=== PATIENT | male | born 1940 | race Caucasian/White ===

== ENCOUNTER 2024-04-09 10:09 | Emergency (ER) | payer MEDICARE, SELFPAY ==
[2024-04-09] VITALS (24 sets, daily range): BP systolic 68–174; BP diastolic 37–83; PULSE 61–72; RESP 15–32; TEMP 35.7; O2SAT 93–100
--- NOTE | ~2024-04-09 | XR_ITS ---
EXAMINATION: XR chest 2V DATE: 04/09/2024 10:46 INDICATION: Weakness. Dizziness. TECHNIQUE: Frontal and lateral views of the chest were obtained on 3 radiographs. COMPARISON: Chest single view 07/13/2014 FINDINGS: The lung volumes are small. There is a diffuse interstitial pattern in the lungs with a per ipheral and lower lung predominance. No pleural effusion or pneumothorax. The heart size is normal. C alcified mediastinal lymph nodes are consistent with old granulomatous disease. Median sternotomy wir es are noted. IMPRESSION: 1. Small lung volumes with diffuse lung disease, new from 07/13/14, which may be chronic interstitial lung disease. Pneumonia is not excluded. Reviewed, dictated and finalized at location A.
--- NOTE | 2024-04-09 10:18 | ECG_ITS ---
SEE SCANNED COPY FOR CONFIRMED REPORT MTDD
[2024-04-09 10:44] LABS: Basophils Absolute Auto 0.1 K/mm3 (0.0-0.1); Basophils Percent Auto 0.8 % (0.2-1.2); Eosinophils Absolute Auto 0.3 K/mm3 (0-0.3); Eosinophils Percent Auto 3.4 % (0-4.4); Hematocrit 38.4 % (42.0-52.0); Hemoglobin 12.9 g/dL (14.0-18.0); Immature Granulocyte Absolute 0.08 K/mm3 (0.00-0.031); Immature Granulocyte Percent A 0.8 % (0-0.5); Lymphocytes Absolute Auto 1.66 K/mm3 (0.9-3.2); Lymphocytes Percent Auto 16.7 % (18.3-44.2); Mean Corpuscular HGB Conc 33.6 g/dl (32-36); Mean Corpuscular Hemoglobin 30.9 pg (26-34); Mean Corpuscular Volume 92.1 fl (80-100); Mean Platelet Volume 9.2 fl (7.4-10.4); Monocytes Absolute Auto 0.9 K/mm3 (0.1-0.6); Monocytes Percent Auto 8.6 % (2.6-8.5); Neutrophils Absolute Auto 6.9 K/mm3 (1.3-6.7); Neutrophils Percent Auto 69.7 % (45.5-73.1); Platelet Count Result 225 k/mm3 (150-375); Red Blood Count 4.17 M/mm3 (4.6-6.20); Red Cell Distribution Width 12.8 % (11.5-14.5); White Blood Count 9.9 K/mm3 (4.5-10.0)
[2024-04-09 11:00] LABS: Alanine Aminotransferase 16 U/L (6-50); Alkaline Phosphatase 117 U/L (38-126); Anion Gap 5 mmol/L (4-12); Aspartate Amino Transferase 24 U/L (17-59); Bilirubin,Total 0.6 mg/dL (0.2-1.3); Blood Urea Nitrogen 30 mg/dL (9-20); Calcium 9.7 mg/dL (8.4-10.2); Carbon Dioxide 31 mmol/L (22-30); Chloride 94 mmol/L (98-107); Estimated CRCL calculation 35 ml/min; Estimated Glomerular Filt Rate 38; Glucose 256 mg/dL (65-110); Potassium 4.6 mmol/L (3.4-5.0); Sodium 130 mmol/L (137-145)
[2024-04-09] MEDS: SODIUM CHLORIDE 0.9% IV 1,000 ML 999 ML IV CONT (11:10)
--- NOTE | 2024-04-09 11:24 | ED.WEAKNESS ---
HPI - Weakness General Chief complaint: Weakness Stated complaint: low BP, weakness Time Seen by Provider: 04/09/24 10:18 Source: patient, family and RN notes reviewed Limitations: no limitations History of Present Illness HPI Narrative: This is an 84 year old male with history of CAD who presents for evaluation of hypotension. Patient was seeing case management coordinator, Dr. Hopper for pulmonary fibrosis, and he was found to have blood pressure in the 70-80s. They report he was asymptomatic but he was sent to ER for evaluation. Patient states he has been dealing with weakness for months but he feels fine today. He denies chest pain, indigestion, nausea, vomiting, diarrhea or fever. He has taken his blood pressure medication today. they report his blood pressure has been in the 140s. Related Data Home Medications Medication Instructions Recorded Confirmed alprazolam 0.25 mg disintegrating 0.25 mg PO DAILY 04/09/24 tablet aspirin 81 mg tablet,delayed 81 mg PO DAILY 04/09/24 release (Adult Low Dose Aspirin) clopidogrel 75 mg tablet 75 mg PO DAILY 04/09/24 insulin glargine 100 unit/mL (3 20 unit subcut QAM 04/09/24 mL) subcutaneous pen (Lantus Solostar U-100 Insulin) isosorbide mononitrate 60 mg 60 mg PO DAILY 04/09/24 tablet,extended release 24 hr metoprolol succinate 50 mg 50 mg PO BID 04/09/24 tablet,extended release 24 hr olmesartan 40 mg tablet 40 mg PO DAILY 04/09/24 simvastatin 80 mg tablet 80 mg PO DAILY 04/09/24 Allergies Allergy/AdvReac Type Severity Reaction Status Date / Time No Known Allergies Allergy Verified 04/09/24 09:42 Review of Systems Constitutional: Constitutional: Reports fatigue and Reports weakness Cardiovascular: Cardiovascular: Denies syncope, Denies rapid heart rate, Denies irregular heart rhythm, Denies leg edema and Denies dyspnea Respiratory: Respiratory: Denies chest congestion, Denies hemoptysis, Denies excessive phlegm production and Denies dyspnea Gastrointestinal: Gastrointestinal: Denies abdominal pain, Denies hematochezia, Denies diarrhea and Denies vomiting Genitourinary: Genitourinary: Denies hematuria, Denies dysuria, Denies penile discharge and Denies testicular pain Musculoskeletal: Musculoskeletal: Denies joint swelling, Denies loss of height and Denies muscle weakness Neurologic: Denies syncope, Denies focal weakness and Denies weakness PMFSH Past Medical History Medical History (Updated 04/09/24 @ 13:29 by Amanda Escalona MD) Diabetes mellitus Hypertension Pulmonary fibrosis Surgical History Surgical History (Updated 04/09/24 @ 13:25 by Amanda Escalona MD) Hx of CABG Social History Social History (Updated 04/09/24 @ 13:26 by Amanda Escalona MD) Smoking status: Never smoker Exam Const: General: no acute distress and alert Nutritional Appearance: well nourished Orientation/consciousness: patient oriented x3 HENMT: Head: normal to inspection Eyes: EOM: EOMs intact bilaterally Chest: Chest palpation & inspection: normal inspection of the chest Resp: Effort & Inspection: normal respiratory effort Auscultation: clear to auscultation bilaterally Cardio: Rate: regular rate Rhythm: regular rhythm Heart sounds: Murmur heart sound present GI: GI Palp: Yes Soft to palpation, No Tenderness to palpation present (GI), No Guarding due to palpation present (GI), No Rigid due to palpation and Yes Hernia present Auscultation: normal bowel sounds Skin: General skin exam: normal color Rashes: no rashes Wounds: no wounds Neuro: General: patient oriented x3 and moves all extremities Cranial nerves: Yes Nystagmus not present Extrem: General: normal to inspection Psych: Mental Status: mental status grossly normal Affect: normal affect Attitude: cooperative Course Reevaluation(s) Reevaluation #1: I Discussed with patient and family about labs. He states he feels great and he is ready for discharge. He is aware of his chron
[2024-04-09 11:30] LABS: Lactic Acid Reflex 1.8 mmol/L (0.7-2.0)
[2024-04-09 12:31] LABS: Appearance Urine Clear (Clear); Bacteria Urine None Seen /hpf; Bilirubin Urine Negative (Negative); Blood Urine Negative (Negative); Color Urine Dark Yellow (Yellow); Glucose Urine UA Trace mg/dL (Negative); Ketones Urine Negative (Negative); Leukocyte Esterase Ur Negative LEU/UL (Negative); Nitrate Urine Negative (Negative); Protein Urine 1+ mg/dL (Negative); RBC Urine 0-2 /hpf (0-2); Specific Grav Ur 1.019 (1.001-1.035); Squamous Epithelial Cell Urine None Seen /hpf (Few); Urobilinogen Urine 0.2 mg/dL (<2.0); WBC Urine 0-5 /hpf (0-3); pH Urine 5.5 (5.0-9.0)
[2024-04-09 12:33] LABS: Add Urine Microscopic? YES
== END 2024-04-09 13:43 | disposition home or self-care (01) ==
PROVIDERS: Physician Assistant; Emergency Provider General Practice; PCP Internal Medicine
DX: I95.1 Orthostatic hypotension (principal); E87.1 Hypo-osmolality and hyponatremia; I25.10 Atherosclerotic heart disease of native coronary artery without angina pectoris; J84.10 Pulmonary fibrosis, unspecified; Z79.82 Long term (current) use of aspirin; Z79.4 Long term (current) use of insulin; E11.9 Type 2 diabetes mellitus without complications; I10 Essential (primary) hypertension; Z95.1 Presence of aortocoronary bypass graft
CPT/HCPCS: 36415; 71046; 80053; 81001; 83605; 85025; 93005; 96360; 99283; J7030

== ENCOUNTER 2024-05-19 08:46 | Inpatient (IN) | payer MEDICARE, SELFPAY ==
[2024-05-19] VITALS (37 sets, daily range): BP systolic 119–157; BP diastolic 48–98; PULSE 87–116; RESP 14–28; TEMP 36.3–36.7; O2SAT 92–100; BMI 23.3
--- NOTE | ~2024-05-19 | US_ITS ---
EXAMINATION: US retroperitoneal duplex ltd DATE: 05/20/2024 09:26 INDICATION: Elevated creatinine TECHNIQUE: Multiple grayscale, color Doppler, and pulsed Doppler images of the kidneys and renal rosy maria luisa were obtained. COMPARISON: None. FINDINGS: The aorta peak systolic velocity is 70 cm/s. The right renal artery peak systolic velocity is 76 cm/s in the proximal segment, 55 cm/s in the mid segment, and 43 cm/s in the distal segment. The left tyree al artery peak systolic velocity is 24 cm/s in the proximal segment, 40 cm/s in the mid segment, and 47 cm/s in the distal segment. IMPRESSION: 1. No Doppler evidence of renal artery stenosis. Reviewed, dictated and finalized at location A.
--- NOTE | ~2024-05-19 | XR_ITS ---
XR chest 2V DATE: 05/19/2024 13:09 INDICATION: Weakness TECHNIQUE: AP and lateral views COMPARISON: 04/09/2024 AP and lateral views FINDINGS: Small lung volumes again noted, with infiltrate and/or atelectasis or chronic interstitial lung changes in the mid and particularly lower lung zones. There is little interval change in appeara nce since 04/09/2024. Heart size appears normal. Status post sternotomy. Aortic arch calcification. Osteopenia. IMPRESSION: No significant change since 04/09/2024 Reviewed, dictated and finalized at location A.
--- NOTE | ~2024-05-19 | US_ITS ---
BILATERAL LOWER EXTREMITY VENOUS ULTRASOUND Ordering provider: Ish Phelps MD History: . tachycardia . Comparison: None. FINDINGS: RIGHT LOWER EXTREMITY VEINS: --COMMON FEMORAL: Patent and free of thrombus. Normal compressibility, phasic flow and augmentation. --PROXIMAL SUPERFICIAL FEMORAL: Patent and free of thrombus. Normal compressibility, phasic flow and augmentation. --DISTAL SUPERFICIAL FEMORAL: Patent and free of thrombus. Normal compressibility, phasic flow and au gmentation. --POPLITEAL: Patent and free of thrombus. Normal compressibility, phasic flow and augmentation. --POSTERIOR TIBIAL: Patent and free of thrombus. Normal compressibility, phasic flow and augmentation . LEFT LOWER EXTREMITY VEINS: --COMMON FEMORAL: Patent and free of thrombus. Normal compressibility, phasic flow and augmentation. --PROXIMAL SUPERFICIAL FEMORAL: Patent and free of thrombus. Normal compressibility, phasic flow and augmentation. --DISTAL SUPERFICIAL FEMORAL: Patent and free of thrombus. Normal compressibility, phasic flow and au gmentation. --POPLITEAL: Patent and free of thrombus. Normal compressibility, phasic flow and augmentation. --POSTERIOR TIBIAL: Patent and free of thrombus. Normal compressibility, phasic flow and augmentation . IMPRESSION: Negative bilateral lower extremity venous US. No deep vein thrombosis. Reviewed, dictated and finalized at location A.
--- NOTE | ~2024-05-19 | XR_ITS ---
EXAMINATION: XR chest 1V portable DATE: 05/27/2024 05:29 INDICATION: Hypoxia TECHNIQUE: frontal view of the chest was obtained. COMPARISON: Chest radiograph dated 05/22/2024 FINDINGS: Stable appearance of small lung volumes with lower lung predominant airspace and coarse interstitial opacities. No pleural effusion or pneumothorax. Heart size is normal. Median sternotomy wires and med iastinal surgical clips are seen, likely from prior coronary artery bypass grafting. Calcified media stinal and hilar lymph nodes consistent with old granulomatous disease. There is residual oral contra st particularly in the colon from a prior modified barium swallow study. IMPRESSION: 1. Stable appearance of small lung volumes with lower lung predominant opacities was likely chronic i nterstitial lung disease although difficult to exclude superimposed mild pulmonary edema or pneumonia . Reviewed, dictated and finalized at location A. IMPRESSION: 1. Stable appearance of small lung volumes with lower lung predominant opacitie s was likely chronic interstitial lung disease although difficult to exclude fabian perimposed mild pulmonary edema or pneumonia.
--- NOTE | ~2024-05-19 | CT_ITS ---
EXAMINATION: CT brain wo con DATE: 05/20/2024 18:22 INDICATION: Generalized weakness. Dysphagia. TECHNIQUE: Computed tomography (CT) of the head was performed without intravenous contrast. The mA wa s adjusted according to patient size. Iterative reconstruction technique was employed. The dose-lengt h product was 605.33 mGy-cm. COMPARISON: None FINDINGS: There are scattered areas of low attenuation in the cerebral white matter, which is within normal limits for the patient's age. There is no intracranial hemorrhage, acute infarction, or abnorm al intracranial mass lesion. The ventricles are normal in size. There are likely changes of ocular le ns replacement surgeries. The paranasal sinuses are clear. The mastoid air cells are normal. IMPRESSION: 1. Normal aging brain. Reviewed, dictated and finalized at location E. IMPRESSION: 1. Normal aging brain.
--- NOTE | ~2024-05-19 | XR_ITS ---
MODIFIED ESOPHAGRAM HISTORY: Choking episode with meals TECHNIQUE: Modified barium esophagram was performed on 05/20/2024. I administered fluoroscopy and perf ormed the exam with speech pathologist. Patient was seated for lateral fluoroscopic imaging for blane stion of thin liquids, pudding, solids and quantified amounts, followed by thin liquids in uncontroll ed amounts. This was recorded on tape. A single fluoroscopic spot image was also recorded. The DAP fo r this procedure was 2.571 Gycm2. The amount of fluoroscopy time used during this procedure was 3.9 m inutes. FINDINGS: Oral stage: Adequate function. Pharyngeal stage: Reduced laryngeal elevation, laryngeal adduction, pharyngeal squeeze and tongue bas e retraction. There is vallecular and piriform sinus residue. There is laryngeal penetration without aspiration. Cervical/esophageal stage: Adequate function. IMPRESSION: Pharyngeal dysphagia with laryngeal penetration without aspiration. Please correlate wit h speech pathologist findings and specific feeding recommendations. Reviewed, dictated and finalized at location A. IMPRESSION: Pharyngeal dysphagia with laryngeal penetration without aspiration. Please correlate with speech pathologist findings and specific feeding recomm endations.
--- NOTE | ~2024-05-19 | XR_ITS ---
EXAMINATION: XR chest 1V portable DATE: 05/22/2024 15:23 INDICATION: Anterior chest pain. Congestion. TECHNIQUE: A single frontal view of the chest was obtained. COMPARISON: Chest 2 views 05/19/2024, 04/09/2024 FINDINGS: The lung volumes are small. There are airspace and interstitial opacities in all lung zones bilaterally with a lower lung predominance. No pleural effusion or pneumothorax. The heart size is n ormal. Calcified mediastinal and hilar lymph nodes are consistent with old granulomatous disease. Med carrie sternotomy wires are noted. IMPRESSION: 1. Small lung volumes with diffuse lung disease, which may be chronic interstitial lung disease. Supe rimposed pulmonary edema or pneumonia cannot be excluded. Reviewed, dictated and finalized at location A. IMPRESSION: 1. Small lung volumes with diffuse lung disease, which may be chronic interstit ial lung disease. Superimposed pulmonary edema or pneumonia cannot be excluded.
--- NOTE | 2024-05-19 09:05 | ED.GENADULT ---
HPI - General Adult General Chief complaint: Weakness Stated complaint: High blood sugar History of Present Illness HPI narrative: 84-year-old male presenting to the emergency department for evaluation for elevated blood sugars for the last 2 months and increased generalized weakness and shortness of breath this started over the last few days. Related Data Home Medications Medication Instructions Recorded Confirmed aspirin 81 mg tablet,delayed 81 mg PO DAILY 04/09/24 05/19/24 release (Adult Low Dose Aspirin) clopidogrel 75 mg tablet 75 mg PO DAILY 04/09/24 05/19/24 insulin glargine 100 unit/mL (3 32 unit subcut QAM 04/09/24 05/19/24 mL) subcutaneous pen (Lantus Solostar U-100 Insulin) simvastatin 80 mg tablet 80 mg PO DAILY 04/09/24 05/19/24 alprazolam 0.25 mg tablet 0.25 mg PO HS anxiety 05/19/24 05/19/24 furosemide 20 mg tablet 20 mg PO DAILY 05/19/24 05/19/24 metoprolol tartrate 50 mg tablet 50 mg PO BID 05/19/24 05/19/24 ranolazine 500 mg tablet,extended 500 mg PO BID 05/19/24 05/19/24 release,12 hr Allergies Allergy/AdvReac Type Severity Reaction Status Date / Time No Known Allergies Allergy Verified 05/19/24 14:14 Review of Systems Review of Systems: All systems reviewed & are unremarkable except as noted in HPI and below PMFSH Past Medical History Medical History Diabetes mellitus Hypertension Pulmonary fibrosis Surgical History Surgical History Hx of CABG Social History Social History Smoking status: Never smoker Exam Narrative: APPEARANCE: Well appearing, no pain, no distress, well-nourished. HEAD: normocephalic, atraumatic. EYES: PERRLA/EOMI, conjunctivae clear. NOSE: Normal no drainage EARS:TMS clear with good light reflex. THROAT: Pharynx clear, no exudate. NECK: Supple. No adenopathy, no masses. RESPIRATORY: Airway patent, respirations nonlabored. Clear to auscultation bilaterally, no rales, rhonchi, wheezing. CARDIOVASCULAR: Regular rate and rhythm without murmurs rubs or gallops. ABDOMINAL: Soft, nontender, nondistended, normal bowel sounds MUSCULOSKELETAL: Moves all extremities. Strength/ROM intact, No edema, No calf tenderness. NEURO: Alert. Cranial nerves II through XII intact. SKIN: Warm, dry. Normal Color Course Course Emergency Course: Patient was admitted for persistent generalized weakness and hyperglycemia Vital Signs Vital signs: Vital Signs Temperature 98.1 F 05/19/24 08:49 Pulse Rate 102 H 05/19/24 08:49 Respiratory Rate 22 H 05/19/24 08:49 Blood Pressure 131/64 05/19/24 08:49 Pulse Oximetry 92 05/19/24 08:49 Oxygen Delivery Room Air 05/19/24 08:49 Temperature 97.3 F L 05/19/24 13:50 Pulse Rate 90 05/19/24 13:50 Respiratory Rate 18 05/19/24 13:50 Blood Pressure 135/66 05/19/24 13:50 Pulse Oximetry 100 05/19/24 13:50 Oxygen Delivery Nasal Cannula 05/19/24 13:32 Oxygen Flow Rate 2 05/19/24 13:32 Medical Decision Making MDM Narrative Medical decision making narrative: 84-year-old male presenting to the emergency department for evaluation of high blood sugars and increased generalized weakness. Patient is not in diabetic ketoacidosis. Patient was treated with IV fluids and IV insulin and patient's blood sugars did improve from 668 to roughly 500. Patient still reports increased generalized weakness. Patient is afebrile but does have a leukocytosis of 13.4. Case discussed with the hospitalist and patient was accepted for admission Differential Diagnosis Differential Diagnosis: Pneumonia, UTI, COVID, influenza, RSV, hyperglycemia, DKA Vital Signs Vital Signs: Vital Signs Temperature 98.1 F 05/19/24 08:49 Pulse Rate 102 H 05/19/24 08:49 Respiratory Rate 22 H 05/19/24 08:49 Blood Pressure 131/64 05/19/24 08:49 Pulse
[2024-05-19] MEDS: SODIUM CHLORIDE 0.9% IV 1,000 ML 999 ML IV CONT (09:10)
[2024-05-19 09:13] LABS: Basophils Percent Auto 0.3 % (0.2-1.2); Eosinophils Absolute Auto 0.1 K/mm3 (0-0.3); Eosinophils Percent Auto 0.4 % (0-4.4); Hematocrit 41.1 % (42.0-52.0); Hemoglobin 13.7 g/dL (14.0-18.0); Immature Granulocyte Absolute 0.06 K/mm3 (0.00-0.031); Immature Granulocyte Percent A 0.4 % (0-0.5); Lymphocytes Absolute Auto 1.39 K/mm3 (0.9-3.2); Lymphocytes Percent Auto 10.4 % (18.3-44.2); Mean Corpuscular HGB Conc 33.3 g/dl (32-36); Mean Corpuscular Hemoglobin 31.2 pg (26-34); Mean Corpuscular Volume 93.6 fl (80-100); Mean Platelet Volume 9.5 fl (7.4-10.4); Monocytes Absolute Auto 1.1 K/mm3 (0.1-0.6); Monocytes Percent Auto 8.1 % (2.6-8.5); Neutrophils Absolute Auto 10.7 K/mm3 (1.3-6.7); Neutrophils Percent Auto 80.4 % (45.5-73.1); Platelet Count Result 197 k/mm3 (150-375); Red Blood Count 4.39 M/mm3 (4.6-6.20); Red Cell Distribution Width 12.6 % (11.5-14.5); White Blood Count 13.4 K/mm3 (4.5-10.0)
[2024-05-19 09:14] LABS: Glucose Point of Care > 500 mg/dl (65-105)
[2024-05-19 09:26] LABS: Beta-Hydroxybutyrate/Acetoacetate 0.16 mmol/L (0.02-0.27)
[2024-05-19 09:37] LABS: Alanine Aminotransferase 19 U/L (6-50); Albumin Level 4.1 g/dL (3.5-5.1); Alkaline Phosphatase 210 U/L (38-126); Anion Gap 7 mmol/L (4-12); Aspartate Amino Transferase 24 U/L (17-59); Bilirubin,Total 0.7 mg/dL (0.2-1.3); Blood Urea Nitrogen 46 mg/dL (9-20); Calcium 9.6 mg/dL (8.4-10.2); Carbon Dioxide 34 mmol/L (22-30); Chloride 88 mmol/L (98-107); Estimated CRCL calculation 35 ml/min; Estimated Glomerular Filt Rate 38; Potassium 4.9 mmol/L (3.4-5.0); Sodium 129 mmol/L (137-145)
[2024-05-19 09:43] LABS: Glucose 668 mg/dL (65-110)
[2024-05-19 09:54] LABS: Influenza A QL RT-PCR Negative (Negative); Influenza B QL RT-PCR Negative (Negative); RSV RNA, RT-PCR Negative (Negative); SARS-CoV-2 RNA PCR Negative (Negative)
[2024-05-19] MEDS: INSULIN HUMAN REGULAR (*BKC) 100 UNITS/ML 9 UNITS IV PUSH ×2 (09:55→12:45)
[2024-05-19 10:24] LABS: Hemoglobin A1C 10.6 % (<5.7)
[2024-05-19 10:34] LABS: Appearance Urine Clear (Clear); Bacteria Urine None Seen /hpf; Bilirubin Urine Negative (Negative); Blood Urine Negative (Negative); Color Urine Yellow (Yellow); Glucose Urine UA 3+ mg/dL (Negative); Ketones Urine Negative (Negative); Leukocyte Esterase Ur Negative LEU/UL (Negative); Need Manual Microscopic Reviewed; Nitrate Urine Negative (Negative); Non Pathogenic Casts 0-2; Protein Urine Trace mg/dL (Negative); RBC Urine 0-2 /hpf (0-2); Squamous Epithelial Cell Urine None Seen /hpf (Few); Urobilinogen Urine 0.2 mg/dL (<2.0); WBC Urine 0-5 /hpf (0-3)
[2024-05-19 10:36] LABS: Add Urine Microscopic? YES
[2024-05-19 10:39] LABS: Glucose Point of Care > 500 mg/dl (65-105)
[2024-05-19 11:39] LABS: Glucose Point of Care 497 mg/dl (65-105)
--- NOTE | 2024-05-19 12:48 | PM.IMHP ---
H&P: HPI History of Present Illness Date/Time: 05/19/24 12:48 Chief Complaint: Weakness Narrative: Mr. Justice is an 84-year-old male with a PMHx: CAD, Diabetes mellitus on insulin, HTN, pulmonary fibrosis not on home oxygen, history of CABG, who presented to the emergency room with complaints of ongoing elevated blood sugars for the past 2 months as well as increased generalized weakness and SOB for the past 4 days. Spouse by the bedside reports pt has hx of CKD that is being managed by PCP. She reports pt has not been able to eat well in the past, due to ongoing choking episodes, she reports only being able to serve pt soft foods which may have not been the best dietary choices for the pt. Pt reports he is compliant with his home medications citing he takes his insulin and pills everyday. Mrs. Acevedo reports pt is only able to walk a few feet from the chair to the bathroom without experiencing sob, and moderate weakness. ED workup reveals: Initial vitals: b/p134/48, rr 20, pr 103 sp02 98 % on RA, T:97.3, initial glucose was 668, wbc 13. Na+129, GFR is 38. CXR had no significant changes from 04/09/2024, patient was not in diabetic ketoacidosis, he was given IV fluids along with IV insulin recheck blood sugar revealed blood glucose 497, then 403, hgb A1c is 10.6 UA reveals positive glucose otherwise unremarkable, viral PCR negative. Review of Systems Review of Systems: All systems reviewed & are unremarkable except as noted in HPI and below [facility] Past Medical History Medical History Diabetes mellitus Hypertension Pulmonary fibrosis Surgical History Surgical History Hx of CABG Social History Social History Smoking status: Never smoker Meds Home Medications and Allergies Home Medications Medication Instructions Recorded Confirmed Type aspirin 81 mg tablet,delayed 81 mg PO DAILY 04/09/24 05/19/24 History release (Adult Low Dose Aspirin) clopidogrel 75 mg tablet 75 mg PO DAILY 04/09/24 05/19/24 History insulin glargine 100 unit/mL (3 32 unit subcut QAM 04/09/24 05/19/24 History mL) subcutaneous pen (Lantus Solostar U-100 Insulin) simvastatin 80 mg tablet 80 mg PO DAILY 04/09/24 05/19/24 History alprazolam 0.25 mg tablet 0.25 mg PO HS anxiety 05/19/24 05/19/24 History furosemide 20 mg tablet 20 mg PO DAILY 05/19/24 05/19/24 History metoprolol tartrate 50 mg tablet 50 mg PO BID 05/19/24 05/19/24 History ranolazine 500 mg tablet,extended 500 mg PO BID 05/19/24 05/19/24 History release,12 hr Allergies Allergy/AdvReac Type Severity Reaction Status Date / Time No Known Allergies Allergy Verified 05/19/24 14:14 Vital Signs Vital Signs - 24 hr 05/19/24 08:49 05/19/24 08:53 Temperature 98.1 F Pulse Rate 102 H 102 H Respiratory Rate 22 H Blood Pressure 131/64 Pulse Oximetry 92 Oxygen Delivery Room Air Exam Narrative: General: A well-developed, nontoxic-appearing gentlemen, lying on stretcher HEENT: PERRL, EOMI. Oral mucosa moist. Neck: Supple. No midline cervical tenderness. Respiratory: Respirations are non- labored and lungs fine crackles in bilateral lower bases Cardiovascular: Tachycardia 103 Gastrointestinal: Abdomen is soft, non-tender, and non-distended with positive bowel sounds. Skin: Warm and dry. No rash or lesions on limited exam. Extremities: No cyanosis, clubbing, mild +1 pitting edema bilateral lower extremities Neurological: Alert and oriented. Cranial nerves 2-12 are grossly intact. No gross focal deficits to casual conversation. Psychiatric: Pleasant and cooperative with normal mood and affect. Judgment and insight intact. H&P: Results Labs Labs: Short CBC 05/19/24 Range/Units 09:05 WBC 13.4 H (4.5-10.0) K/mm3 Hgb 13.7 L (14.0-18.0) g/dL Hct 41.1 L (42.0-52.0)
[2024-05-19 12:51] LABS: Glucose Point of Care 486 mg/dl (65-105)
--- NOTE | 2024-05-19 14:00 | ADMGEN ---
This patient, Reshma Redmond, was admitted to IMU Room 232-01. Patient/family oriented to hospital policies and general routines including ID bracelet, bed and alarms, visiting hours, pain management, procedures, bathroom and other care routines, personal items, smoking policy, room service/diet, and visiting hours. Information on how to activate the Rapid Response Team has been discussed. Patient/Family are encouraged to report perceived risks to care and to ask questions if they do not understand what they are told or what they should do.
--- NOTE | 2024-05-19 14:52 | ECG_ITS ---
Test Date: 2024-05-20 07:41:09 Measurements Intervals Parker Rate: 81 P: 19 MD: 237 QRS: 239 QRSD: 163 T: 19 QT: 404 QTc: 471 Interpretive Statements SINUS RHYTHM WITH FIRST DEGREE AV BLOCK WITH OCCASIONAL VENTRICULAR PREMATURE COMPLEXES MARKED RIGHT AXIS DEVIATION [QRS AXIS > 100] RIGHT BUNDLE BRANCH BLOCK AND POSSIBLE RIGHT VENTRICULAR HYPERTROPHY [RBBB, 1.5 mV R IN V1, RAD] ABNORMAL ECG No previous ECG available for comparison Electronically Signed On 05-20-2024 08:50:22 CDT by Naveen Davis M.D.
[2024-05-19 14:53] LABS: Glucose Point of Care 403 mg/dl (65-105)
[2024-05-19 16:13] LABS: Glucose Point of Care 415 mg/dl (65-105)
[2024-05-19 17:14] LABS: Anion Gap 6 mmol/L (4-12); Blood Urea Nitrogen 44 mg/dL (9-20); Calcium 9.2 mg/dL (8.4-10.2); Carbon Dioxide 33 mmol/L (22-30); Chloride 94 mmol/L (98-107); Estimated CRCL calculation 38 ml/min; Estimated Glomerular Filt Rate 41; Glucose 414 mg/dL (65-110); Potassium 4.6 mmol/L (3.4-5.0); Sodium 133 mmol/L (137-145)
[2024-05-19] MEDS: INSULIN ASPART (*BKC) 100 UNITS/ML SUB-Q (18:17)
[2024-05-19 19:55] LABS: Glucose Point of Care 373 mg/dl (65-105)
[2024-05-19 20:10] LABS: Anion Gap 5 mmol/L (4-12); Blood Urea Nitrogen 44 mg/dL (9-20); Calcium 9.3 mg/dL (8.4-10.2); Carbon Dioxide 35 mmol/L (22-30); Chloride 95 mmol/L (98-107); Estimated CRCL calculation 36 ml/min; Estimated Glomerular Filt Rate 38; Glucose 458 mg/dL (65-110); Potassium 5.3 mmol/L (3.4-5.0); Sodium 135 mmol/L (137-145)
[2024-05-19] MEDS: RANOLAZINE 500 MG TAB.ER.12H PO (20:37)
[2024-05-19] MEDS: ALPRAZolam (*CRX) 0.25 MG TABLET PO (20:37)
[2024-05-19] MEDS: METOPROLOL TARTRATE 50 MG TAB PO (20:38)
[2024-05-20] VITALS (19 sets, daily range): BP systolic 82–157; BP diastolic 40–81; PULSE 76–123; RESP 15–20; TEMP 36.1–37.3; O2SAT 90–93
[2024-05-20 00:32] LABS: Anion Gap 5 mmol/L (4-12); Blood Urea Nitrogen 43 mg/dL (9-20); Calcium 9.3 mg/dL (8.4-10.2); Carbon Dioxide 35 mmol/L (22-30); Chloride 94 mmol/L (98-107); Estimated CRCL calculation 38 ml/min; Estimated Glomerular Filt Rate 41; Glucose 364 mg/dL (65-110); Potassium 4.6 mmol/L (3.4-5.0); Sodium 134 mmol/L (137-145)
[2024-05-20] MEDS: INSULIN GLARGINE (*BKC) 100 UNITS/ML 15 UNITS SUB-Q (01:16)
[2024-05-20] MEDS: ACETAMINOPHEN 325 MG TABLET 650 MG PO ×2 (02:13→23:07)
[2024-05-20 04:47] LABS: Basophils Absolute Auto 0.1 K/mm3 (0.0-0.1); Basophils Percent Auto 0.5 % (0.2-1.2); Eosinophils Absolute Auto 0.2 K/mm3 (0-0.3); Eosinophils Percent Auto 2.4 % (0-4.4); Hematocrit 40.1 % (42.0-52.0); Immature Granulocyte Absolute 0.05 K/mm3 (0.00-0.031); Immature Granulocyte Percent A 0.5 % (0-0.5); Lymphocytes Absolute Auto 1.19 K/mm3 (0.9-3.2); Lymphocytes Percent Auto 12.4 % (18.3-44.2); Mean Corpuscular HGB Conc 32.4 g/dl (32-36); Mean Corpuscular Volume 95.5 fl (80-100); Mean Platelet Volume 9.6 fl (7.4-10.4); Monocytes Absolute Auto 0.8 K/mm3 (0.1-0.6); Monocytes Percent Auto 7.9 % (2.6-8.5); Neutrophils Absolute Auto 7.3 K/mm3 (1.3-6.7); Neutrophils Percent Auto 76.3 % (45.5-73.1); Platelet Count Result 194 k/mm3 (150-375); Red Cell Distribution Width 12.6 % (11.5-14.5); White Blood Count 9.6 K/mm3 (4.5-10.0)
[2024-05-20 04:57] LABS: Cholesterol 101 mg/dL (0-200); HDL Direct 33 mg/dL; Triglycerides 81 mg/dL (<150)
[2024-05-20 05:07] LABS: LDL Cholesterol Direct 55 mg/dL
[2024-05-20 08:16] LABS: Glucose Point of Care 327 mg/dl (65-105)
[2024-05-20] MEDS: INSULIN ASPART (*BKC) 100 UNITS/ML SUB-Q ×7 (08:27→21:17)
[2024-05-20] MEDS: INSULIN GLARGINE (*BKC) 100 UNITS/ML 32 UNITS SUB-Q (08:28)
[2024-05-20 08:39] LABS: Troponin I 0.173 ng/mL (0.000-0.034)
[2024-05-20] MEDS: SODIUM CHLORIDE 0.9% IV 250 ML 100 ML IV CONT (10:00)
[2024-05-20] MEDS: SIMVASTATIN 20 MG TABLET 80 MG PO (10:20)
[2024-05-20] MEDS: CLOPIDOGREL BISULFATE 75 MG TABLET PO (10:20)
[2024-05-20] MEDS: ASPIRIN 81 MG ENTERIC TABLET PO (10:20)
[2024-05-20] MEDS: ENOXAPARIN 40 MG/0.4 ML SYRINGE SUB-Q (10:21)
[2024-05-20] MEDS: SODIUM CHLORIDE 0.9% IV 1,000 ML 75 ML IV CONT ×2 (11:00→21:18)
[2024-05-20 11:33] LABS: Glucose Point of Care 280 mg/dl (65-105)
--- NOTE | 2024-05-20 14:10 | PCSTNOTE ---
Modified barium swallow study completed. Cursory oral peripheral examination results within functional limits. Trials of thin, moderately thick, pureed, mixed, and solid consistency were given using varying bolus sizes and manners of presentation. Residue in pyriform sinuses and vallaculea were present with all. Multiple swallows helped reduce residue volume. Recommendations: speech therapy to address swallowing including compensatory strategies, laryngeal elevation, laryngeal adduction, and tongue base retraction. Swallowing precaution recommendations placed in chart. Thank you for the referral of this patient.
--- NOTE | 2024-05-20 14:19 | PM.IMPN ---
Progress Note: A&P Assessment and Plan (1) Weakness: Code(s): R53.1 - Weakness Status: Acute Assessment and Plan: Patient with progressive weakness ongoing for >2 months. TSH normal. CXR showing pulmonary fibrosis without change. He is orthostatic related to recent lasix use and from autodiuresis from the hyperglycemia Start IV fluids. Lasix stopped. Control glucose better. Check CT brain to exclude occult CVA ST evaluate and treat Start PT/OT if orthostatic vitals better (2) Hyperglycemia due to type 2 diabetes mellitus: Code(s): E11.65 - Type 2 diabetes mellitus with hyperglycemia Status: Acute Assessment and Plan: A1c 10.4. Patient is on insulin at home but noncompliant with diet since he is having trouble swallowing ST eval showing he needs minced and moist diet so diet adjusted. Check CT brain to exclude occult CVA to explain his dysphagia. Lantus 32units in the a.m. resumed. Add Novolog at meal times. Continue AccuCheks covering with sliding scale. Hypoglycemia protocol available as needed. (3) Hyponatremia: Code(s): E87.1 - Hypo-osmolality and hyponatremia Status: Inactive Assessment and Plan: Sodium 130 in March and was 129 on admission here. Serial sodium 129-135. Suspect related to the hyperglycemia. Follow (4) CKD (chronic kidney disease) stage 3, GFR 30-59 ml/min: Code(s): N18.30 - Chronic kidney disease, stage 3 unspecified Status: Acute Assessment and Plan: Baseline Cr 1.7 with BUN 30 in march. Cr about the same here but BUN higher to suggest dehydration. Probably explains orthostatic vitals Continue IV fluids. Check cortisol level Renal Doppler negative for renal artery stenosis (5) Orthostatic hypotension: Code(s): I95.1 - Orthostatic hypotension Status: Acute Assessment and Plan: As above. IV fluids started Follow. Holding Lasix Obtain copy of recent Echo (6) Elevated troponin: Code(s): R79.89 - Other specified abnormal findings of blood chemistry Status: Acute Assessment and Plan: Troponin mildly elevated. EKG showing normal sinus with 1st degree AVB, PVCs, Rt BBB and RAD and possible RVH He has a hx of CAD and CABG. Lipid panel noted No CP. Elevated Trop probably related to HoTN and CKD. Check TCK Get copy of recent echo. May need to repeat Echo Repeat Trop and trend. Continue ASA and Zocor. Lopressor on hold until BP better Plan VTE Prophylaxis: Enoxaparin subQ Code Status: DNR Subjective Date/time seen: 05/20/24 14:19 Interval history: 84yo male with CAD, HTN, pulmonary fibrosis and DM here for weakness and elevated glucose. Slep some but frequent interruptions. No lightheadedness with standing prior to admission. He has been voiding more recently but was started on Lasix. No n/v. No CP or SOB. Follows with education program specialist Dr Daniel. He was last seen in February with Echo. He is followed for a murmur. Called by RN this morning for SBP 80 when standing. Exam Narrative: AF 97.8 96/45 92 18 93% ra Gen - NARD Chest - inspiratory dry crackles mid and lower lung chávez. CV - RRR S1/S2 with 2/6 systolic murmur t/o precordium. Tele showing RBBB and PVCs Abd - Soft, NT/ND, Positive BS Ext - trace pedal edema Psych - Nml mood and affect Skin - Warm and dry Objective Data Vital Signs Vital Signs: Vital Signs - 24 hr 05/19/24 16:00 05/19/24 16:00 05/19/24 16:00 Temperature 97.5 F L Pulse Rate 90 90 Respiratory Rate 24 H Blood Pressure 149/62 H Pulse Oximetry 95 94 Oxygen Delivery Nasal Cannula Oxygen Flow Rate 2 05/19/24 18:00 05/19/24 20:00 05/19/24 20:38 Temperature 97.8 F Pulse Rate 91 88 90 Respiratory Rate 18 Blood Pressure 136/54 L Pulse Oximetry 99 Oxygen Delivery Oxygen Flow Rate 05/19/24 20:00 05/20/24 00:00 05/19/24 20:00 Temperature 97.1 F L Pulse Rate 88 76 94 Respirat
[2024-05-20 16:22] LABS: Creatine Kinase 55 U/L (55-170)
[2024-05-20 16:40] LABS: Troponin I 0.087 ng/mL (0.000-0.034)
[2024-05-20 16:41] LABS: Glucose Point of Care 365 mg/dl (65-105)
[2024-05-20 20:48] LABS: Glucose Point of Care 302 mg/dl (65-105)
[2024-05-20] MEDS: INSULIN GLARGINE (*BKC) 100 UNITS/ML 25 UNITS SUB-Q (21:18)
[2024-05-20] MEDS: ALPRAZolam (*CRX) 0.25 MG TABLET PO (23:07)
[2024-05-21] VITALS (16 sets, daily range): BP systolic 89–152; BP diastolic 57–74; PULSE 110–123; RESP 18–19; TEMP 36.4–37.7; O2SAT 90–97; BMI 28.3
[2024-05-21 04:26] LABS: Basophils Percent Auto 0.3 % (0.2-1.2); Eosinophils Absolute Auto 0.2 K/mm3 (0-0.3); Eosinophils Percent Auto 1.3 % (0-4.4); Hematocrit 39.4 % (42.0-52.0); Hemoglobin 12.8 g/dL (14.0-18.0); Immature Granulocyte Absolute 0.04 K/mm3 (0.00-0.031); Immature Granulocyte Percent A 0.3 % (0-0.5); Lymphocytes Absolute Auto 1.43 K/mm3 (0.9-3.2); Lymphocytes Percent Auto 12.3 % (18.3-44.2); Mean Corpuscular HGB Conc 32.5 g/dl (32-36); Mean Corpuscular Hemoglobin 31.1 pg (26-34); Mean Corpuscular Volume 95.6 fl (80-100); Monocytes Absolute Auto 0.9 K/mm3 (0.1-0.6); Monocytes Percent Auto 7.7 % (2.6-8.5); Neutrophils Absolute Auto 9.1 K/mm3 (1.3-6.7); Neutrophils Percent Auto 78.1 % (45.5-73.1); Platelet Count Result 187 k/mm3 (150-375); Red Blood Count 4.12 M/mm3 (4.6-6.20); Red Cell Distribution Width 12.7 % (11.5-14.5); White Blood Count 11.6 K/mm3 (4.5-10.0)
[2024-05-21 04:40] LABS: Alanine Aminotransferase 27 U/L (6-50); Albumin Level 3.6 g/dL (3.5-5.1); Alkaline Phosphatase 145 U/L (38-126); Anion Gap 2 mmol/L (4-12); Aspartate Amino Transferase 42 U/L (17-59); Bilirubin,Total 0.7 mg/dL (0.2-1.3); Blood Urea Nitrogen 37 mg/dL (9-20); Calcium 8.7 mg/dL (8.4-10.2); Carbon Dioxide 33 mmol/L (22-30); Chloride 100 mmol/L (98-107); Estimated CRCL calculation 40 ml/min; Estimated Glomerular Filt Rate 44; Glucose 207 mg/dL (65-110); Magnesium 2.1 mg/dL (1.6-2.3); Potassium 4.4 mmol/L (3.4-5.0); Sodium 135 mmol/L (137-145)
[2024-05-21 08:05] LABS: Glucose Point of Care 176 mg/dl (65-105)
[2024-05-21] MEDS: CLOPIDOGREL BISULFATE 75 MG TABLET PO (09:06)
[2024-05-21] MEDS: ASPIRIN 81 MG ENTERIC TABLET PO (09:06)
[2024-05-21] MEDS: SIMVASTATIN 20 MG TABLET 80 MG PO (09:06)
[2024-05-21] MEDS: INSULIN ASPART (*BKC) 100 UNITS/ML 8 UNITS SUB-Q ×3 (09:06→17:21)
[2024-05-21] MEDS: ENOXAPARIN 40 MG/0.4 ML SYRINGE SUB-Q (09:06)
--- NOTE | 2024-05-21 10:20 | PCPTNOTE ---
Attempted PT evaluation, Pt HR at 120's-130's resting and noted to be positive for orthostatics. RN aware. Will follow.
[2024-05-21] MEDS: SODIUM CHLORIDE 0.9% IV 1,000 ML 75 ML IV CONT ×2 (10:49→23:34)
[2024-05-21 11:39] LABS: Glucose Point of Care 229 mg/dl (65-105)
[2024-05-21] MEDS: INSULIN ASPART (*BKC) 100 UNITS/ML SUB-Q ×3 (11:58→21:24)
--- NOTE | 2024-05-21 13:34 | PCOTNOTE ---
Attempted OT evaluation, Pt has increased HR while resting and noted to be positive for orthostatics. RN aware. Will follow.
--- NOTE | 2024-05-21 14:19 | PM.IMPN ---
Progress Note: A&P Assessment and Plan (1) Weakness: Code(s): R53.1 - Weakness Status: Acute Assessment and Plan: Patient with progressive weakness ongoing for >2 months. TSH normal. Cortisol appropriate. CXR showing pulmonary fibrosis without change. He is orthostatic related to recent lasix use and from osmotic diuresis from the hyperglycemia Started IV fluids. Lasix stopped. Controlling glucose better. CT brain showing no acute process. ST evaluate and treat PT/OT when able. (2) Hyperglycemia due to type 2 diabetes mellitus: Code(s): E11.65 - Type 2 diabetes mellitus with hyperglycemia Status: Acute Assessment and Plan: A1c 10.4. Patient is on insulin at home but noncompliant with diet since he is having trouble swallowing ST eval showing he needs minced and moist diet so diet adjusted. No occult CVA to explain his dysphagia. Possibly related to esophageal stricture Lantus 25units QHS. Novolog at meal times added. Glucose 207 this morning. Continue AccuCheks covering with sliding scale. Hypoglycemia protocol available as needed. Advance diabetic meds as needed. (3) Hyponatremia: Code(s): E87.1 - Hypo-osmolality and hyponatremia Status: Inactive Assessment and Plan: Sodium 130 in March and was 129 on admission here. Serial sodium 129-135. Suspect related to the hyperglycemia. Sodium 135 today Follow (4) CKD (chronic kidney disease) stage 3, GFR 30-59 ml/min: Code(s): N18.30 - Chronic kidney disease, stage 3 unspecified Status: Acute Assessment and Plan: Baseline Cr 1.7 with BUN 30 in March. Cr about the same here but BUN higher to suggest dehydration. Probably explains orthostatic vitals Renal Doppler negative for renal artery stenosis Continue IV fluids. (5) Orthostatic hypotension: Code(s): I95.1 - Orthostatic hypotension Status: Acute Assessment and Plan: As above. IV fluids started Follow. Holding Lasix Requested copy of recent Echo but not forthcoming (6) Elevated troponin: Code(s): R79.89 - Other specified abnormal findings of blood chemistry Status: Acute Assessment and Plan: Troponin mildly elevated 0.173 -> 0.087. EKG showing normal sinus with 1st degree AVB, PVCs, Rt BBB and RAD and possible RVH He has a hx of CAD and CABG. Lipid panel noted. TCK normal. No CP. Elevated Trop probably related to HoTN and CKD. Repeat Trop already trending down. Continue ASA and Zocor. Lopressor on hold until BP better Plan VTE Prophylaxis: Enoxaparin subQ Code Status: DNR Subjective Date/time seen: 05/21/24 14:19 Interval history: 84yo male with CAD, HTN, pulmonary fibrosis and DM here for weakness and elevated glucose. Still with signifincat blood pressure drop with standing but he is asymptomatic. No CP or lightheadedness. He does have VILLALPANDO when he is standing for a prolonged period. Eating well. 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 He feels the symptoms have returned. Exam Narrative: AF 98.2 140/67 119 18 97% ra Gen - NARD Chest - dry inspiratory crackles mid and lower lung chávez. CV - RRR S1/S2 with 2/6 systolic murmur t/o precordium. Tele showing RBBB and PVCs Abd - Soft, NT/ND, Positive BS Ext - no pedal edema Psych - Nml mood and affect Skin - Warm and dry Objective Data Vital Signs Vital Signs: Vital Signs - 24 hr 05/20/24 16:00 05/20/24 16:00 05/20/24 16:00 Temperature 97.6 F Pulse Rate 96 99 Respiratory Rate 18 Blood Pressure 132/52 L Pulse Oximetry 93 Oxygen Delivery Room Air 05/20/24 18:00 05/20/24 20:00 05/20/24 20:00 Temperature 99.2 F Pulse Rate 107 H 114 H 114 H Respiratory Rate 20 20 Blood Pressure 127/62 Pulse Oximetry 90 90 Oxygen Delivery Room Air 05/20/24 20:00 05/20/24 21:26 05/20/24 22:49 Temperature 98.5 F Pulse Rate 114 H 121 H 117 H Respirato
[2024-05-21] MEDS: MIDODRINE HCL 2.5 MG TABLET 5 MG PO (17:21)
[2024-05-21 17:28] LABS: Glucose Point of Care 248 mg/dl (65-105)
[2024-05-21 20:21] LABS: Glucose Point of Care 310 mg/dl (65-105)
[2024-05-21] MEDS: INSULIN GLARGINE (*BKC) 100 UNITS/ML 25 UNITS SUB-Q (21:21)
[2024-05-21] MEDS: ALPRAZolam (*CRX) 0.25 MG TABLET PO (21:27)
[2024-05-22] VITALS (19 sets, daily range): BP systolic 103–138; BP diastolic 39–72; PULSE 91–132; RESP 18–36; TEMP 36.1–36.9; O2SAT 86–97
--- NOTE | 2024-05-22 | ECHO_ITS ---
Patient Info Name: Reshma Redmond Age: 84 years : 1940 Gender: Male Ht: 77 in Wt: 234 lbs BSA: 2.41 m2 HR: 99 bpm BP: 131 / 53 mmHg Heart Rhythm: Tachycardia Technical Quality: Fair Exam Date: 05/22/2024 3:29 PM Exam Location: Echo Lab Patient Status: Inpatient Admit Date: 05/20/2024 Staff Ordering Physician: Ish Phelps MD Guest Experience Manager: Althea Belcher RDCS Attending Provider: Yolande Vital MD Exam Type: CA echo doppler color flow Study Info Indications R53.1 - Weakness R01.1 - Cardiac murmur, unspecified Complete two-dimensional, color flow and Doppler transthoracic echocardiogram is performed. Summary 1. Left ventricular chamber dimension is normal. 2. There is mildly increased left ventricular wall thickness. 3. Left ventricular systolic function appears reduced, but difficult to accurately estimate LVEF. Will obtain repeat limited echo with Definity for better assessment. 4. Right ventricular chamber dimension is normal. 5. Right ventricular systolic function is reduced. 6. The interatrial septum appears aneurysmal. 7. There is moderate aortic valve calcification. 8. There is mild to moderate aortic valve stenosis with a peak velocity of 235 cm/s, mean gradient of 11 mmHg, and aortic valve area of 1.3 cm2. 9. There is mild mitral valve regurgitation. 10. There is mild tricuspid valve regurgitation. Left Ventricle Left ventricular chamber dimension is normal. There is mildly increased left ventricular wall thickness. Left ventricular septal wall motion is abnormal with septal motion related to a post-operative state. Left ventricular systolic function appears reduced, but difficult to accurately estimate LVEF. Will obtain repeat limited echo with Definity for better assessment. Right Ventricle Right ventricular chamber dimension is normal. Right ventricular systolic function is reduced. Left Atria Left atrial chamber dimension is normal. Right Atria Right atrial chamber dimension is normal. Atrial Septum The interatrial septum appears aneurysmal. Aortic Valve The aortic valve is probable trileaflet. There is mild to moderate aortic valve stenosis with a peak velocity of 235 cm/s, mean gradient of 11 mmHg, and aortic valve area of 1.3 cm2. There is trace aortic valve regurgitation. There is moderate aortic valve calcification. Pulmonic Valve The pulmonic valve is not well visualized. Mitral Valve There is mild mitral valve regurgitation. The mitral valve annulus is mildly calcified. Tricuspid Valve There is mild tricuspid valve regurgitation. Pericardium/Pleural There is no pericardial effusion. Inferior Vena Cava Inferior vena cava is not well visualized. Aorta The aortic root size at the sinus of Valsalva is normal. Left Ventricular Outflow Tract Name Value Normal LVOT 2D LVOT Diameter 1.9 cm LVOT Doppler LVOT Peak Gradient 3 mmHg LVOT Mean Gradient 2 mmHg LVOT VTI 16 cm LVOT VTI/AV VTI Ratio 0.5 LVOT Stroke Volume 46 ml LVOT CO 4.3 l/min LVOT CI
[2024-05-22 04:18] LABS: Basophils Absolute Auto 0.1 K/mm3 (0.0-0.1); Basophils Percent Auto 0.4 % (0.2-1.2); Eosinophils Absolute Auto 0.1 K/mm3 (0-0.3); Eosinophils Percent Auto 0.5 % (0-4.4); Hemoglobin 12.5 g/dL (14.0-18.0); Immature Granulocyte Absolute 0.05 K/mm3 (0.00-0.031); Immature Granulocyte Percent A 0.4 % (0-0.5); Lymphocytes Absolute Auto 1.07 K/mm3 (0.9-3.2); Lymphocytes Percent Auto 9.1 % (18.3-44.2); Mean Corpuscular HGB Conc 31.3 g/dl (32-36); Mean Corpuscular Hemoglobin 30.9 pg (26-34); Mean Corpuscular Volume 98.8 fl (80-100); Monocytes Percent Auto 8.2 % (2.6-8.5); Neutrophils Absolute Auto 9.6 K/mm3 (1.3-6.7); Neutrophils Percent Auto 81.4 % (45.5-73.1); Platelet Count Result 170 k/mm3 (150-375); Red Blood Count 4.05 M/mm3 (4.6-6.20); Red Cell Distribution Width 12.8 % (11.5-14.5); White Blood Count 11.8 K/mm3 (4.5-10.0)
[2024-05-22 04:35] LABS: Albumin Level 3.4 g/dL (3.5-5.1); Anion Gap 5 mmol/L (4-12); Blood Urea Nitrogen 33 mg/dL (9-20); Calcium 8.4 mg/dL (8.4-10.2); Carbon Dioxide 29 mmol/L (22-30); Chloride 100 mmol/L (98-107); Estimated CRCL calculation 43 ml/min; Estimated Glomerular Filt Rate 48; Glucose 207 mg/dL (65-110); Magnesium 2.1 mg/dL (1.6-2.3); Phosphorus 3.4 mg/dL (2.5-4.5); Potassium 4.7 mmol/L (3.4-5.0); Sodium 134 mmol/L (137-145)
--- NOTE | 2024-05-22 08:10 | WPDGICN ---
Assessment and Plan Assessment and plan (1) Dysphagia: Code(s): R13.10 - Dysphagia, unspecified Status: Acute Plan 1) Dysphagia: Per patient he had an EGD with dilation done in [place] for similar symptoms but patient was unable to say when this was performed. He does state that dilation previously helped improve all of his symptoms. He states that over the past 6 months he has been having episodes of dysphagia with solids, liquids, and pills but given his description seems to be more pharyngeal in nature. modified barium swallow 05/20/2024 showed pharyngeal dysphagia with laryngeal penetration without aspiration. Speech therapy has been working with the patient. Patient had already eaten today. Patient on aspirin 81 mg and Plavix daily. hold Plavix EGD with dilation tomorrow may consider ENT consult given that his symptoms are more oropharyngeal in nature NPO after midnight further recommendations to follow endoscopy Thank you very much for allowing me to share in the care of this very nice patient GI Consult Note Consult date/time: 05/22/24 08:10 Reason for consult: Dysphagia HPI: Reshma Redmond is a 84 year old male with past medical-surgical history of partial sigmoid colon resection secondary to diverticulitis many years ago , coronary artery disease, diabetes, HTN, pulmonary fibrosis, and history of CABG. He presented to the emergency room with complaints of elevated blood sugar x2 months, weakness, and shortness of breath. GI consulted for dysphagia. Patient states that over the past 6 months he has been having pharyngeal dysphagia with pills, solids, and liquids but otherwise denies any other GI complaints. patient states that he had an EGD with dilation performed in [place] but was unable to say how long ago this was performed. He states that he had an EGD for similar symptoms and that it fixed everything . He denies abdominal pain, nausea, vomiting, bloating, odynophagia, reflux, regurgitation, appetite loss, or weight loss. The patient is having regular daily bowel movements that are formed and non urgent. Denies diarrhea, constipation, hematochezia, melena, fecal incontinence, or rectal pain. ENDOSCOPY HISTORY: EGD: Per patient he had a previous EGD with esophageal dilation in [place] but was unable to say how long ago this was performed and reports are not available today's visit COLONOSCOPY: Per patient last colonoscopy >10 years ago. Family history negative for CRC or IBD IMAGING: CT abd/pelvis w/contrast 04/03/2024 Fibrotic changes in the lungs Colonic diverticulosis with no CT evidence of acute diverticulitis small fat containing left indirect inguinal hernia Cholelithiasis Mild hepatic steatosis Modified barium swallow 05/20/2024 Pharyngeal dysphagia with laryngeal penetration without aspiration Review of Systems Constitutional: Constitutional: Reports as per HPI ENT: Reports as per HPI and Reports dysphagia Cardiovascular: Cardiovascular: Reports as per HPI, Denies chest pain and Denies dyspnea Respiratory: Respiratory: Denies cough and Denies dyspnea Gastrointestinal: Gastrointestinal: Reports as per HPI Musculoskeletal: Musculoskeletal: Reports as per HPI Integumentary/Breasts: Skin/Breast: Reports as per HPI Psychiatric: Psychiatric: Reports as per HPI Endocrine: Endocrine: Reports no additional endocrine complaints Hematologic/Lymphatic: Hematologic/Lymphatic: Reports no additional hematologic/lymphatic complaints [facility] Past Medical History Medical History Diabetes mellitus Hypertension Pulmonary fibrosis Surgical History Surgical History Hx of CABG Social History Social History Smoking status: Never smo
[2024-05-22 08:28] LABS: Glucose Point of Care 204 mg/dl (65-105)
[2024-05-22] MEDS: INSULIN ASPART (*BKC) 100 UNITS/ML 8 UNITS SUB-Q ×3 (08:52→16:34)
[2024-05-22] MEDS: CLOPIDOGREL BISULFATE 75 MG TABLET PO (08:52)
[2024-05-22] MEDS: SIMVASTATIN 20 MG TABLET 80 MG PO (08:52)
[2024-05-22] MEDS: MIDODRINE HCL 2.5 MG TABLET 5 MG PO ×3 (08:52→16:34)
[2024-05-22] MEDS: INSULIN ASPART (*BKC) 100 UNITS/ML SUB-Q ×4 (08:52→20:51)
[2024-05-22] MEDS: ENOXAPARIN 40 MG/0.4 ML SYRINGE SUB-Q (08:52)
[2024-05-22] MEDS: ASPIRIN 81 MG ENTERIC TABLET PO (08:52)
--- NOTE | 2024-05-22 09:36 | PCSTNOTE ---
The patient treatment was not able to be completed at 9:20 am due to reporting that he had many people entering his room along with three great grandkids who played the drums on the air conditioning unit. He also stated he had fish and rice for breakfast and it was supposed to have been pureed and was not. Will plan to continue treatment per plan of care by returning later this morning or resuming tomorrow.
[2024-05-22 11:24] LABS: Glucose Point of Care 248 mg/dl (65-105)
[2024-05-22] MEDS: SODIUM CHLORIDE 0.9% IV 1,000 ML 75 ML IV CONT (13:19)
[2024-05-22] MEDS: polyethylene glycoL 3350 17 GM POWD.PACK PO (13:28)
--- NOTE | 2024-05-22 14:52 | ECG_ITS ---
Test Date: 2024-05-22 15:02:53 Measurements Intervals [place] Rate: 124 P: -21 MN: 167 QRS: 238 QRSD: 151 T: 20 QT: 318 QTc: 458 Interpretive Statements SINUS TACHYCARDIA MARKED RIGHT AXIS DEVIATION [QRS AXIS > 100] RIGHT BUNDLE BRANCH BLOCK [120+ ms QRS DURATION, UPRIGHT V1, 40+ ms S IN I/aVL/V4/V5/V6] POSSIBLE SEPTAL MYOCARDIAL INFARCTION , PROBABLY OLD [30 ms Q WAVE IN V1/V2] Compared to ECG 05/20/2024 07:41:09 SINUS TACHYCARIDA NOW PRESENT Electronically Signed On 05-23-2024 11:45:10 CDT by Vikki Owens M.D.
--- NOTE | 2024-05-22 15:01 | PM.IMPN ---
Progress Note: A&P Assessment and Plan (1) Chest discomfort: Code(s): R07.89 - Other chest pain Status: Acute Assessment and Plan: Patient with new onset of chest symptoms that are atypical. EKG showing tachycardia but otherwise no change. CXR and Trop ordered. Discomfort better with warm blanket Tachypnea documented but not noted on exam He wasn't tachycardia on admission and feels this is related to being off of his metoprolol. Stop IV fluids. Metoprolol 5mg IV once and resume oral metoprolol at lower dose to improve tachycardia. Checl LE doppler. Consider CTAQ chest if tachycardia does not improve as expected (2) Weakness: Code(s): R53.1 - Weakness Status: Acute Assessment and Plan: Patient with progressive weakness ongoing for >2 months. TSH normal. Cortisol appropriate. CXR showing pulmonary fibrosis without change. He is orthostatic related to recent lasix use and from osmotic diuresis from the hyperglycemia Started on IV fluids. Lasix stopped. Controlling glucose better. Metoprolol stopped CT brain showing no acute process. ST evaluate and treat PT/OT when able. (3) Orthostatic hypotension: Code(s): I95.1 - Orthostatic hypotension Status: Acute Assessment and Plan: As above. IV fluids started and midodrine added Held Lasix then metoprolol Requested copy of recent Echo but not forthcoming Orthostatic VS today: 129/71 -> 103/39 -> 114/69 Check Echo Stop IV fluids give his possible tachypnea. CXR ordered. Resume metoprolol as above. Consider Lasix prn if needed. (4) Hyperglycemia due to type 2 diabetes mellitus: Code(s): E11.65 - Type 2 diabetes mellitus with hyperglycemia Status: Acute Assessment and Plan: A1c 10.4. Patient is on insulin at home but noncompliant with diet since he is having trouble swallowing ST eval showing he needs minced and moist diet so diet adjusted (but patient is requesting pureed due to swallowing difficulty). No occult CVA to explain his dysphagia. Possibly related to esophageal stricture Lantus 25units QHS. Novolog at meal times added. Glucose 207 again this morning. Continue AccuCheks covering with sliding scale. Hypoglycemia protocol available as needed. Continue Lantus and meal time Novolog. NPO for EGD in the morning. Hold Lantus dosing tonight and give lower dose since will be NPO He may need more Lantus if he starts to eat better (5) Hyponatremia: Code(s): E87.1 - Hypo-osmolality and hyponatremia Status: Inactive Assessment and Plan: Sodium 130 in March and was 129 on admission here. Serial sodium 129-135. Suspect related to the hyperglycemia. Sodium 134 today Follow (6) CKD (chronic kidney disease) stage 3, GFR 30-59 ml/min: Code(s): N18.30 - Chronic kidney disease, stage 3 unspecified Status: Acute Assessment and Plan: Baseline Cr 1.7 with BUN 30 in March. Cr about the same here but BUN higher to suggest dehydration. Probably explains orthostatic vitals Renal Doppler negative for renal artery stenosis Cr better. Stop IV fluids. (7) Elevated troponin: Code(s): R79.89 - Other specified abnormal findings of blood chemistry Status: Acute Assessment and Plan: Troponin mildly elevated 0.173 -> 0.087. EKG showing normal sinus with 1st degree AVB, PVCs, Rt BBB and RAD and possible RVH He has a hx of CAD and CABG. Lipid panel noted. TCK normal. No CP. Elevated Trop probably related to HoTN and CKD. Repeat Trop was trending down. Continue ASA and Zocor. Lopressor was on hold but resume today Repeat Trop ordered. (8) Dysphagia: Code(s): R13.10 - Dysphagia, unspecified Status: Acute Assessment and Plan: Patient with dysphagia over the past 6 months or so. He had what sounds like esophageal dilation in July at [place]. Patient feels his symptoms have recurred. GI consulted for possible EGD. 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
[2024-05-22] MEDS: METOPROLOL TARTRATE INJ 5 MG/5 ML VIAL IV PUSH (15:30)
[2024-05-22 16:13] LABS: Glucose Point of Care 290 mg/dl (65-105)
[2024-05-22] MEDS: PANTOPRAZOLE SODIUM IV 40 MG VIAL IV PUSH ×2 (16:34→20:57)
[2024-05-22] MEDS: METOPROLOL TARTRATE 25 MG TABLET PO (20:46)
[2024-05-22] MEDS: INSULIN GLARGINE (*BKC) 100 UNITS/ML 20 UNITS SUB-Q (20:48)
[2024-05-22 20:54] LABS: Glucose Point of Care 280 mg/dl (65-105)
[2024-05-22 21:17] LABS: Basophils Percent Auto 0.3 % (0.2-1.2); Eosinophils Percent Auto 0.3 % (0-4.4); Hematocrit 33.5 % (42.0-52.0); Hemoglobin 10.8 g/dL (14.0-18.0); Immature Granulocyte Absolute 0.07 K/mm3 (0.00-0.031); Immature Granulocyte Percent A 0.8 % (0-0.5); Lymphocytes Absolute Auto 0.78 K/mm3 (0.9-3.2); Mean Corpuscular HGB Conc 32.2 g/dl (32-36); Mean Corpuscular Hemoglobin 31.1 pg (26-34); Mean Corpuscular Volume 96.5 fl (80-100); Mean Platelet Volume 8.9 fl (7.4-10.4); Monocytes Absolute Auto 0.7 K/mm3 (0.1-0.6); Monocytes Percent Auto 7.5 % (2.6-8.5); Neutrophils Absolute Auto 7.2 K/mm3 (1.3-6.7); Neutrophils Percent Auto 82.1 % (45.5-73.1); Platelet Count Result 162 k/mm3 (150-375); Red Blood Count 3.47 M/mm3 (4.6-6.20); White Blood Count 8.7 K/mm3 (4.5-10.0)
[2024-05-22 21:26] LABS: INR 1.2; Prothrombin Time 15.8 Seconds (11.1-14.7)
[2024-05-22 21:27] LABS: Partial Thromboplastin Time 42.1 Seconds (22.3-36.8)
[2024-05-22] MEDS: HEPARIN SOD/D5W 100 UNITS/ML 25,000 UNITS/250 ML BAG 10 UNITS IV CONT (21:55)
[2024-05-23] VITALS (17 sets, daily range): BP systolic 110–145; BP diastolic 53–84; PULSE 80–103; RESP 19–32; TEMP 36.1–37.2; O2SAT 90–97
--- NOTE | 2024-05-23 | ECHO_ITS ---
Patient Info Name: Reshma Redmond Age: 84 years : 1940 Gender: Male Ht: 77 in Wt: 240 lbs BSA: 2.45 m2 HR: 86 bpm BP: 131 / 57 mmHg Heart Rhythm: Sinus Rhythm Technical Quality: Fair Exam Date: 05/23/2024 11:49 AM Exam Location: Echo Lab Patient Status: Inpatient Admit Date: 05/20/2024 Staff Ordering Physician: Vikki Owens MD (brock/angelica) Barn Manager: Breana Bolanos RDCS Attending Provider: Yolande Vital MD Referring Physician: Roman HARDY; Exam Type: CA echo limited w contrast Study Info Indications - Eval LVEF Limited two-dimensional transthoracic echocardiogram is performed with contrast. Contrast/Agitated Saline Contrast/Ag. Saline: Definity Amount: 3.00 ml Administered By: Breana Bolaons RDCS Existing IV Access: Yes IV Access Condition: patent with no signs of infiltration Summary 1. Limited echocardiogram to assess LVEF. 2. Left ventricular systolic function is at lower limits of normal, estimated at 50-55%. Left Ventricle Left ventricular systolic function is at lower limits of normal, estimated at 50-55%. Ventricles Name Value Normal LV Fractional Shortening/Ejection Fraction 2D/MM LV Diastolic Volume (4C MOD) 98 ml LV EF (4C MOD) 58 % LV Diastolic Volume (2C MOD) 91 ml LV EF (2C MOD) 62 % LV Diastolic Volume (BP MOD) 96 ml 62-150 LV Diastolic Volume Index (BP MOD) 39 ml/m2 34-74 LV Systolic Volume (BP MOD) 38 ml 21-61 LV Systolic Volume Index (BP MOD) 16 ml/m2 11-31 LV EF (BP MOD) 60 % 52-72 LV Diastolic Length (4C) 8.2 cm LV Systolic Length (4C) 6.7 cm LV Stroke Volume (4C MOD) 57 ml Report Signatures
[2024-05-23 04:11] LABS: Basophils Percent Auto 0.3 % (0.2-1.2); Eosinophils Absolute Auto 0.1 K/mm3 (0-0.3); Eosinophils Percent Auto 1.2 % (0-4.4); Immature Granulocyte Absolute 0.06 K/mm3 (0.00-0.031); Immature Granulocyte Percent A 0.7 % (0-0.5); Lymphocytes Absolute Auto 0.96 K/mm3 (0.9-3.2); Lymphocytes Percent Auto 10.5 % (18.3-44.2); Mean Corpuscular HGB Conc 32.3 g/dl (32-36); Mean Platelet Volume 8.9 fl (7.4-10.4); Monocytes Absolute Auto 0.7 K/mm3 (0.1-0.6); Monocytes Percent Auto 7.1 % (2.6-8.5); Neutrophils Absolute Auto 7.3 K/mm3 (1.3-6.7); Neutrophils Percent Auto 80.2 % (45.5-73.1); Platelet Count Result 145 k/mm3 (150-375); Red Blood Count 3.23 M/mm3 (4.6-6.20); White Blood Count 9.2 K/mm3 (4.5-10.0)
[2024-05-23 04:24] LABS: Partial Thromboplastin Time 111.8 Seconds (22.3-36.8)
[2024-05-23 04:25] LABS: Albumin Level 2.9 g/dL (3.5-5.1); Anion Gap 2 mmol/L (4-12); Blood Urea Nitrogen 35 mg/dL (9-20); Calcium 8.2 mg/dL (8.4-10.2); Carbon Dioxide 29 mmol/L (22-30); Chloride 102 mmol/L (98-107); Estimated CRCL calculation 43 ml/min; Estimated Glomerular Filt Rate 48; Glucose 221 mg/dL (65-110); Phosphorus 2.6 mg/dL (2.5-4.5); Potassium 4.3 mmol/L (3.4-5.0); Sodium 133 mmol/L (137-145)
[2024-05-23 07:53] LABS: Glucose Point of Care 191 mg/dl (65-105)
--- NOTE | 2024-05-23 08:00 | ECG_ITS ---
Test Date: 2024-05-23 10:20:49 Measurements Intervals [place] Rate: 83 P: 10 MN: 247 QRS: 263 QRSD: 167 T: 27 QT: 388 QTc: 456 Interpretive Statements SINUS RHYTHM WITH FIRST DEGREE AV BLOCK MARKED RIGHT AXIS DEVIATION [QRS AXIS > 100] RIGHT BUNDLE BRANCH BLOCK [120+ ms QRS DURATION, UPRIGHT V1, 40+ ms S IN I/aVL/V4/V5/V6] POSSIBLE SEPTAL MYOCARDIAL INFARCTION , OF INDETERMINATE AGE [30 ms Q WAVE IN V1/V2] Compared to ECG 05/22/2024 15:02:53 Sinus tachycardia no longer present Electronically Signed On 05-23-2024 11:56:02 CDT by Vikki Owens M.D.
[2024-05-23] MEDS: INSULIN ASPART (*BKC) 100 UNITS/ML 8 UNITS SUB-Q ×3 (08:27→17:17)
[2024-05-23] MEDS: SIMVASTATIN 20 MG TABLET 80 MG PO (08:31)
[2024-05-23] MEDS: CLOPIDOGREL BISULFATE 75 MG TABLET PO (08:31)
[2024-05-23] MEDS: ASPIRIN 81 MG ENTERIC TABLET PO (08:31)
[2024-05-23] MEDS: MIDODRINE HCL 2.5 MG TABLET 5 MG PO ×3 (08:32→17:17)
[2024-05-23] MEDS: METOPROLOL TARTRATE 25 MG TABLET PO ×2 (08:32→20:43)
[2024-05-23 08:48] LABS: Osmolality, Urine 558 mOsm/kg (50-1200)
[2024-05-23] MEDS: PANTOPRAZOLE SODIUM IV 40 MG VIAL IV PUSH ×2 (09:00→20:43)
--- NOTE | 2024-05-23 09:48 | PM.CNCAR ---
Assessment and Plan Assessment and plan (1) Chest discomfort: Code(s): R07.89 - Other chest pain Status: Acute Assessment and Plan: His chest pain was quite atypical. Resolved with placement of a warm blanket on him. Has not had recurrences of chest pain since then. Troponins were checked and was found to be elevated at 3.630 (0.087 on 05/20). Troponins have increased to 5.950 this morning. Patient follows with Dr. Kerri Hoang with [facility]. Cardiac catheterization in May 2023 showed patent CABG grafts, preserved LVEF. Of note, patient has been tachycardic for the past few days. His Metoprolol was on hold, but restarted after his chest pain. Ranexa has been on hold as well. His home Plavix was resumed. Heparin drip started given elevated troponins. EKGs show sinus tachycardia, RBBB. Suspect that the elevation in troponin could be demand ischemia from ongoing tachycardia rather than an acute plaque rupture, however, will continue Heparin drip for now pending echocardiogram. If echocardiogram looks okay, then I will stop the Heparin drip. Will see where his troponin peaks. Agree with resuming his Plavix, continue with ASA, Plavix. Agree with resuming his Metoprolol. I will resume his Ranexa. (2) Elevated troponin: Code(s): R79.89 - Other specified abnormal findings of blood chemistry Status: Acute Assessment and Plan: As above. (3) Dysphagia: Code(s): R13.10 - Dysphagia, unspecified Status: Acute Assessment and Plan: Planning for EGD by GI. (4) Weakness generalized: Code(s): R53.1 - Weakness Status: Acute Assessment and Plan: As per primary team. (5) Coronary artery disease: Code(s): I25.10 - Atherosclerotic heart disease of [place] coronary artery without angina pectoris Status: Acute Assessment and Plan: Continue DAPT, statin, home anti anginal regimen. (6) Hyperglycemia due to type 2 diabetes mellitus: Code(s): E11.65 - Type 2 diabetes mellitus with hyperglycemia Status: Acute Assessment and Plan: Management as per primary team. Plan Recommendations and plan discussed with Hospitalist. History of Present Illness History of Present Illness Consult date/time: 05/23/24 09:48 Requesting physician: Ish Phelps MD Consult reason: chest pain Reason For Visit: Generalized Weakness and Hyperglycemia Narrative: We are consulted for chest pain and elevated troponins. This is an 84 year old male with CAD s/p CABG, insulin-dependent diabetes mellitus, hypertension, pulmonary fibrosis, history of partial sigmoid colon resection secondary to diverticulitis who was admitted on 05/19 for elevated blood sugars, generalized weakness, choking episodes when eating food. He was scheduled to undergo EGD today, however, yesterday, patient complained of diffuse chest pain. Patient states that if felt cold in his room, and when a warm blanket was placed on him, the chest pain resolved without recurrence. Chest pain lasted for a few minutes or so. Troponins were checked and was found to be at 3.630 (0.087 on 05/20). Troponins have increased to 5.950 this morning. Patient follows with Dr. Kerri Hoang with [facility]. Cardiac catheterization in May 2023 showed patent CABG grafts, preserved LVEF. Of note, patient has been tachycardic for the past few days. His Metoprolol was on hold, but restarted yesterday after his chest pain. Ranexa has been on hold as well. His home Plavix was resumed. Heparin drip started given elevated troponins. EKGs show sinus tachycardia, RBBB. Review of Systems Review of Systems: All systems reviewed & are unremarkable except as noted in HPI and below (HPI) [facility] Past Medical History Medical History Diabetes mellitus Hypertension Pulmonary fibrosis Surgical History Surgical History (Reviewed 05/23/24 @ 09:54 by Andre
--- NOTE | 2024-05-23 10:24 | PM.IMPN ---
Progress Note: A&P Assessment and Plan (1) Chest discomfort: Code(s): R07.89 - Other chest pain Status: Acute Assessment and Plan: Patient with new onset of chest symptoms that are atypical. EKG showing tachycardia but otherwise no change. CXR and Trop ordered. resolved with warm blanket Tachypnea documented but not noted on exam He wasn't tachycardia on admission and feels this is related to being off of his metoprolol. Received Metoprolol 5mg IV once and resume oral metoprolol at lower dose to improve tachycardia. Checl LE doppler. Consider CTAQ chest if tachycardia does not improve as expected Tachycardia improved. pending surface echo d/c heparin gtt if echo ok see cardiology note. agree with plan (2) Weakness: Code(s): R53.1 - Weakness Status: Acute Assessment and Plan: Patient with progressive weakness ongoing for >2 months. TSH normal. Cortisol appropriate. CXR showing pulmonary fibrosis without change. 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 Controlling glucose better. Received IV fluids. CT brain showing no acute process. ST evaluate and treat PT/OT consulted. (3) Orthostatic hypotension: Code(s): I95.1 - Orthostatic hypotension Status: Acute Assessment and Plan: As above. Received IV fluids. Midodrine started this admission. improved. [employer] RECEPTIONIST Lasix discontinued. Metoprolol tartrate started at lower dose 25 mg b.i.d. orthostatic hypotension resolved. check prn Check Echo Chest x-ray with pulmonary fibrosis (4) Hyperglycemia due to type 2 diabetes mellitus: Code(s): E11.65 - Type 2 diabetes mellitus with hyperglycemia Status: Acute Assessment and Plan: A1c 10.4. Patient is on insulin at home but noncompliant with diet since he is having trouble swallowing ST eval showing he needs minced and moist diet so diet adjusted (but patient is requesting pureed due to swallowing difficulty). No occult CVA to explain his dysphagia. Likely related to esophageal stricture. Had dilatation in June 2023, patient reports this helped greatly. Lantus 25units QHS. Currently on hold. NPO midnight. Added NovoLog 8 units t.i.d. with sliding scale. Adjust insulin as he eats more. Continue AccuCheks covering with sliding scale. Hypoglycemia protocol available as needed. (5) Hyponatremia: Code(s): E87.1 - Hypo-osmolality and hyponatremia Status: Inactive Assessment and Plan: Serial sodium 129-135. Suspect related to the hyperglycemia. Improved, continue to monitor. (6) CKD (chronic kidney disease) stage 3, GFR 30-59 ml/min: Code(s): N18.30 - Chronic kidney disease, stage 3 unspecified Status: Acute Assessment and Plan: Baseline Cr 1.7 with BUN 30 in March. Cr about the same here but BUN higher to suggest dehydration. Probably explains orthostatic vitals Renal Doppler negative for renal artery stenosis Cr better. Received IV fluids. (7) Dysphagia: Code(s): R13.10 - Dysphagia, unspecified Status: Acute Assessment and Plan: Patient with dysphagia over the past 6 months or so. He had what sounds like esophageal dilation in July at [facility]. Patient feels his symptoms have recurred. GI consulted for possible EGD. NPO after midnight for this. Protonix 40 mg IV b.i.d. added (8) Acute respiratory failure with hypoxia: Code(s): J96.01 - Acute respiratory failure with hypoxia Status: Acute Assessment and Plan: On 1 L nasal cannula. Wean as tolerated. Possibly some pulmonary edema overlying is chronic fibrosis or previously undetected low oxygen due to fibrosis. At the moment will avoid diuresis given his recent hypotension. Continue to monitor. Plan 84-year-old male with PMH CAD status post CABG, IDDM, hypertension, pulmonary fibrosis, history of partial sigmoid colo
[2024-05-23] MEDS: HEPARIN SOD/D5W 100 UNITS/ML 25,000 UNITS/250 ML BAG 8 UNITS IV CONT (10:30)
[2024-05-23 11:01] LABS: Partial Thromboplastin Time 74.7 Seconds (22.3-36.8)
--- NOTE | 2024-05-23 11:28 | PCSTNOTE ---
The patient treatment was not able to be completed on 05/23 due to family reported patient had a heart attack yesterday afternoon and patient and family indicated patient was not up to completing swallowing exercises today. They report patient does have some confusion. Will plan to continue treatment per plan of care.
[2024-05-23 11:41] LABS: Glucose Point of Care 186 mg/dl (65-105)
[2024-05-23] MEDS: polyethylene glycoL 3350 17 GM POWD.PACK PO (11:54)
[2024-05-23] MEDS: PERFLUTREN LIPID MICROSPHERES 1.5 ML VIAL DILUTED TO 10 ML TOTAL VOLUME IV PUSH (12:00)
--- NOTE | 2024-05-23 12:21 | IVDEFINITY ---
Prior to administration of IV Definity the patient was educated on the risks and benefits of the imaging enhancing agent including potential adverse side effects. The patient verbalized understanding. Allergies were verified. No exclusion criteria were identified and at least one of the following inclusion criteria were met: 1) physician request, 2) patient technically difficult to image (per the [place] [employer] guidelines of two or more segments not discernable within the apical view), or 3) questionable left ventricular function. ?
--- NOTE | 2024-05-23 14:38 | PCPTNOTE ---
Attempted to see patient for PT, however patient refused. Patient reported he was up doing a lot today and did not want to do any physical therapy at this time.
[2024-05-23 16:43] LABS: Glucose Point of Care 280 mg/dl (65-105)
[2024-05-23] MEDS: INSULIN ASPART (*BKC) 100 UNITS/ML SUB-Q ×2 (17:17→20:44)
--- NOTE | 2024-05-23 17:27 | WPDGIPROGNO ---
Progress Note: A&P Assessment and Plan (1) Dysphagia: Code(s): R13.10 - Dysphagia, unspecified Status: Acute Assessment and Plan: egd tomorrow if ok by primary team and cardiology pending on echo (2) Chest discomfort: Code(s): R07.89 - Other chest pain Status: Acute Assessment and Plan: resolved (3) Elevated troponin: Code(s): R79.89 - Other specified abnormal findings of blood chemistry Status: Acute Assessment and Plan: by cardiology, started on iv heparin but discontinued now trending troponin ekg unchanged (4) Orthostatic hypotension: Code(s): I95.1 - Orthostatic hypotension Status: Acute (5) CKD (chronic kidney disease) stage 3, GFR 30-59 ml/min: Code(s): N18.30 - Chronic kidney disease, stage 3 unspecified Status: Acute Subjective Date/time seen: 05/23/24 17:27 Interval history: today noted raising troponin after atypical chest disomfort, started on iv heparin and evaluated by cardiology- postponed EGD he is comfortable now, completed ECHO Review of Systems Review of Systems: All systems reviewed & are unremarkable except as noted in HPI and below Exam Const: General: comfortable and no acute distress Other: A&O x3 HENMT: Face/Nose/Sinus: Normal nares present Eyes: Sclera: sclerae normal Neck: Neck: supple Resp: Effort & Inspection: normal respiratory effort Other: Dry crackles diffusely Cardio: Rate: regular rate GI: GI Palp: Yes Soft to palpation, No Tenderness to palpation present (GI) and No Guarding due to palpation present (GI) Auscultation: normal bowel sounds Skin: General skin exam: normal color Neuro: Speech: normal speech Motor exam (neuro): 5/5 motor strength present throughout Extrem: General: edema (Trace pitting edema) Psych: Affect: normal affect Objective Data Vital Signs Vital Signs: Vital Signs - 24 hr 05/22/24 18:00 05/22/24 19:17 05/22/24 20:00 Temperature 97.3 F L Pulse Rate 106 H 106 H 105 H Respiratory Rate 20 Blood Pressure 136/64 Pulse Oximetry 95 Oxygen Delivery Oxygen Flow Rate Fraction of Inspired Oxygen 05/22/24 21:46 05/22/24 23:20 05/23/24 00:00 Temperature 98.3 F Pulse Rate 104 H 91 95 Respiratory Rate 18 Blood Pressure 125/72 Pulse Oximetry 94 Oxygen Delivery Oxygen Flow Rate Fraction of Inspired Oxygen 05/23/24 02:00 05/23/24 04:00 05/23/24 04:00 Temperature 98.1 F Pulse Rate 91 92 92 Respiratory Rate 19 Blood Pressure 126/62 Pulse Oximetry 94 Oxygen Delivery Oxygen Flow Rate Fraction of Inspired Oxygen 05/23/24 05:59 05/23/24 08:00 05/23/24 08:32 Temperature 99.0 F Pulse Rate 103 H 97 94 Respiratory Rate 24 H Blood Pressure 145/57 H Pulse Oximetry 97 Oxygen Delivery Oxygen Flow Rate Fraction of Inspired Oxygen 05/23/24 08:00 05/23/24 08:00 05/23/24 10:00 Temperature Pulse Rate 94 94 80 Respiratory Rate 24 H Blood Pressure Pulse Oximetry 97 Oxygen Delivery Nasal Cannula Oxygen Flow Rate 1 Fraction of Inspired Oxygen 05/23/24 11:41 05/23/24 12:00 05/23/24 12:00 Temperature 97.5 F L Pulse Rate 86 86 86 Respiratory Rate 32 H Blood Pressure 131/57 L Pulse Oximetry 90 93 Oxygen Delivery Nasal Cannula Oxygen Flow Rate 2 Fraction of Inspired Oxygen 05/23/24 08:00 05/23/24 13:51 05/23/24 13:51 Temperature 97.0 F L Pulse Rate 88 Respiratory Rate 24 H Blood Pressure 116/53 L 112/54 L 110/84 Pulse Oximetry 91 Oxygen Delivery Oxygen Flow Rate Fraction of Inspired Oxygen 05/23/24 14:00 05/23/24 16:00 05/23/24 16:00 Temperature Pulse Rate 86 86 Respiratory Rate Blood Pressure Pulse Oximetry 92 Oxygen Delivery Nasal Cannula Oxygen Flow Rate 1 Fraction of Inspired Oxygen 92 05/23/24 16:00 Temperature 97.7 F Pulse Rate 98 Respiratory Rate 28 H Blood Pr
[2024-05-23 20:10] LABS: Glucose Point of Care 295 mg/dl (65-105)
[2024-05-23] MEDS: RANOLAZINE 500 MG TAB.ER.12H PO (20:43)
[2024-05-24] VITALS (22 sets, daily range): BP systolic 115–149; BP diastolic 50–87; PULSE 82–106; RESP 19–28; TEMP 36.2–37.5; O2SAT 90–100
[2024-05-24 04:21] LABS: Basophils Percent Auto 0.5 % (0.2-1.2); Eosinophils Absolute Auto 0.2 K/mm3 (0-0.3); Eosinophils Percent Auto 2.8 % (0-4.4); Hematocrit 38.4 % (42.0-52.0); Hemoglobin 11.9 g/dL (14.0-18.0); Immature Granulocyte Absolute 0.08 K/mm3 (0.00-0.031); Immature Granulocyte Percent A 1.1 % (0-0.5); Lymphocytes Absolute Auto 0.97 K/mm3 (0.9-3.2); Lymphocytes Percent Auto 13.1 % (18.3-44.2); Mean Corpuscular Hemoglobin 30.5 pg (26-34); Mean Corpuscular Volume 98.5 fl (80-100); Mean Platelet Volume 8.9 fl (7.4-10.4); Monocytes Absolute Auto 0.5 K/mm3 (0.1-0.6); Monocytes Percent Auto 6.8 % (2.6-8.5); Neutrophils Absolute Auto 5.6 K/mm3 (1.3-6.7); Neutrophils Percent Auto 75.7 % (45.5-73.1); Platelet Count Result 197 k/mm3 (150-375); Red Cell Distribution Width 12.9 % (11.5-14.5); White Blood Count 7.4 K/mm3 (4.5-10.0)
--- NOTE | 2024-05-24 06:45 | ECG_ITS ---
Test Date: 2024-05-24 06:50:17 Measurements Intervals [place] Rate: 105 P: -6 VA: 184 QRS: 252 QRSD: 162 T: 30 QT: 358 QTc: 473 Interpretive Statements SINUS TACHYCARDIA POSSIBLE LEFT ATRIAL ENLARGEMENT [-0.1mV P WAVE IN V1/V2] MARKED RIGHT AXIS DEVIATION [QRS AXIS > 100] RIGHT BUNDLE BRANCH BLOCK [120+ ms QRS DURATION, UPRIGHT V1, 40+ ms S IN I/aVL/V4/V5/V6] POSSIBLE SEPTAL MYOCARDIAL INFARCTION [30 ms Q WAVE IN V1/V2], OF INDETERMINATE AGE Compared to ECG 05/23/2024 10:20:49 SINUS TACHYCARDIA NOW PRESENT Electronically Signed On 05-24-2024 13:34:40 CDT by Vikki Owens M.D.
[2024-05-24] MEDS: PANTOPRAZOLE SODIUM IV 40 MG VIAL IV PUSH ×2 (06:53→20:50)
--- NOTE | 2024-05-24 06:55 | PC.NURSE ---
RN called to bedside for chest pain. EKG obtained. Oxygen increased. Warm blanket provided per patient request. Patient stated that he was anxious and nauseated. IV Zofran and IV protonix administered. Order for Ativan obtained. Patient states he is no longer having chest pain. Care continues.
[2024-05-24 07:53] LABS: Glucose Point of Care 237 mg/dl (65-105)
[2024-05-24] MEDS: MIDODRINE HCL 2.5 MG TABLET 5 MG PO ×2 (08:25→17:19)
[2024-05-24] MEDS: METOPROLOL TARTRATE 25 MG TABLET PO ×2 (08:25→20:51)
[2024-05-24] MEDS: SIMVASTATIN 20 MG TABLET 80 MG PO (08:25)
[2024-05-24] MEDS: RANOLAZINE 500 MG TAB.ER.12H PO ×2 (08:26→20:50)
[2024-05-24] MEDS: CLOPIDOGREL BISULFATE 75 MG TABLET PO (08:26)
[2024-05-24] MEDS: ASPIRIN 81 MG ENTERIC TABLET PO (08:26)
--- NOTE | 2024-05-24 10:09 | PM.PNCARD ---
Progress Note: A&P Assessment and Plan (1) Chest discomfort: Code(s): R07.89 - Other chest pain Status: Acute Assessment and Plan: His chest pain was quite atypical. Resolved with placement of a warm blanket on him. Has not had recurrences of chest pain since then. Troponins were checked and was found to be elevated at 3.630 (0.087 on 05/20). Troponins have increased to 5.950 this morning. Patient follows with Dr. Kerri Hoang with [facility]. Cardiac catheterization in May 2023 showed patent CABG grafts, preserved LVEF. Of note, patient has been tachycardic for the past few days. His Metoprolol was on hold, but restarted after his chest pain. Ranexa has been on hold as well. His home Plavix was resumed. Heparin drip started given elevated troponins. EKGs show sinus tachycardia, RBBB. Suspect that the elevation in troponin could be demand ischemia from ongoing tachycardia rather than an acute plaque rupture. Heparin drip has been discontinued at this point. Trop peak 5.9, repeat downtrending at 5.67, Continue Plavix, ASA, Metoprolol, and Ranexa. Cardiology will sign off. Please call with any questions. (2) Elevated troponin: Code(s): R79.89 - Other specified abnormal findings of blood chemistry Status: Acute Assessment and Plan: As above. (3) Dysphagia: Code(s): R13.10 - Dysphagia, unspecified Status: Acute Assessment and Plan: Planning for EGD by GI. (4) Weakness generalized: Code(s): R53.1 - Weakness Status: Acute Assessment and Plan: As per primary team. (5) Coronary artery disease: Code(s): I25.10 - Atherosclerotic heart disease of [place] coronary artery without angina pectoris Status: Acute Assessment and Plan: Continue DAPT, statin, home anti anginal regimen. (6) Hyperglycemia due to type 2 diabetes mellitus: Code(s): E11.65 - Type 2 diabetes mellitus with hyperglycemia Status: Acute Assessment and Plan: Management as per primary team. Subjective Date/time seen: 05/24/24 10:09 Interval history: Cardiology follow up for chest pain Date of service 05/24/2024: Has no specific complaints this morning and denies any recurrent chest pain. Review of Systems Review of Systems: All systems reviewed & are unremarkable except as noted in HPI and below (HPI) Exam Const: General: comfortable and no acute distress Other: Elderly frail appearing male HENMT: Mouth: Yes dry mucous membranes Eyes: General: appearance normal, both eyes and all related structures Sclera: sclerae normal Resp: Effort & Inspection: normal respiratory effort Cardio: Rate: regular rate Rhythm: regular rhythm Heart sounds: Murmur heart sound present systolic II/ Skin: General skin exam: normal color Neuro: Speech: normal speech Extrem: Other: No edema Psych: Mental Status: mental status grossly normal Affect: normal affect Objective Data Vital Signs Vital Signs: Vital Signs - 24 hr 05/23/24 11:41 05/23/24 12:00 05/23/24 12:00 Temperature 36.4 C L Pulse Rate 86 86 86 Respiratory Rate 32 H Blood Pressure 131/57 L Pulse Oximetry 90 93 Oxygen Delivery Nasal Cannula Oxygen Flow Rate 2 Fraction of Inspired Oxygen 05/23/24 13:51 05/23/24 13:51 05/23/24 14:00 Temperature Pulse Rate 86 Respiratory Rate Blood Pressure 112/54 L 110/84 Pulse Oximetry Oxygen Delivery Oxygen Flow Rate Fraction of Inspired Oxygen 05/23/24 16:00 05/23/24 16:00 05/23/24 16:00 Temperature 36.5 C Pulse Rate 86 98 Respiratory Rate 28 H Blood Pressure 141/66 H Pulse Oximetry 92 91 Oxygen Delivery Nasal Cannula Oxygen Flow Rate 1 Fraction of Inspired Oxygen 92 05/23/24 19:59 05/23/24 20:03 05/23/24 20:00 Temperature 36.5 C Pulse Rate 96 97 Respiratory Rate 22 H Blood Pressure 135/64 Pulse Oximetry 94 97 Oxygen De
[2024-05-24 11:45] LABS: Glucose Point of Care 255 mg/dl (65-105)
--- NOTE | 2024-05-24 14:17 | PCOTNOTE ---
Attempted to see Patient for P.M. treatment session. Patient being transferred down to the GI lab for an EGD.
[2024-05-24 14:34] LABS: Glucose Point of Care 246 mg/dl (65-105)
[2024-05-24] MEDS: LACTATED RINGERS 1,000 ML 150 ML IV CONT (14:34)
--- NOTE | 2024-05-24 15:18 | WPDANESEPPF ---
Anes - Initial Pre Proc Eval Procedure: Operation Date: 05/24/24 16:30 Proposed Procedures p Esophagogastroduodenoscopy - Darnell Randolph MD Date/Time: 05/24/24 15:18 Surgeon: Yolande Vital MD Pre Op Diagnosis: Generalized Weakness and Hyperglycemia Patient Data Age: 84 Gender: M Height: 1.96 m Weight: 108.1 kg Last Vital Signs Temp 97.2 F L 05/24/24 14:35 Pulse 89 05/24/24 14:35 Resp 19 05/24/24 14:35 BP 121/50 L 05/24/24 14:35 Pulse Ox 92 05/24/24 14:35 O2 Del Method Nasal Cannula 05/24/24 14:35 O2 Flow Rate 1 05/24/24 14:35 FiO2 92 05/23/24 16:00 Allergies Allergy/AdvReac Type Severity Reaction Status Date / Time No Known Allergies Allergy Verified 05/19/24 20:26 Home Medications Medication Instructions Recorded Confirmed Type aspirin 81 mg tablet,delayed 81 mg PO DAILY 04/09/24 05/19/24 History release (Adult Low Dose Aspirin) clopidogrel 75 mg tablet 75 mg PO DAILY 04/09/24 05/19/24 History insulin glargine 100 unit/mL (3 32 unit subcut QAM 04/09/24 05/19/24 History mL) subcutaneous pen (Lantus Solostar U-100 Insulin) simvastatin 80 mg tablet 80 mg PO DAILY 04/09/24 05/19/24 History alprazolam 0.25 mg tablet 0.25 mg PO HS anxiety 05/19/24 05/19/24 History furosemide 20 mg tablet 20 mg PO DAILY 05/19/24 05/19/24 History metoprolol tartrate 50 mg tablet 50 mg PO BID 05/19/24 05/19/24 History ranolazine 500 mg tablet,extended 500 mg PO BID 05/19/24 05/19/24 History release,12 hr Laboratory Tests 05/23/24 05/23/24 05/24/24 16:36 20:01 04:15 WBC 7.4 K/mm3 (4.5-10.0) RBC 3.90 L M/mm3 (4.6-6.20) Hgb 11.9 L g/dL (14.0-18.0) Hct 38.4 L % (42.0-52.0) MCV 98.5 fl (80-100) MCH 30.5 pg (26-34) MCHC 31.0 L g/dl (32-36) RDW 12.9 % (11.5-14.5) Plt Count 197 k/mm3 (150-375) MPV 8.9 fl (7.4-10.4) Immature Gran % (Auto) 1.1 H % (0-0.5) Neut % (Auto) 75.7 H % (45.5-73.1) Lymph % (Auto) 13.1 L % (18.3-44.2) [place] % (Auto) 6.8 % (2.6-8.5) Eos % (Auto) 2.8 % (0-4.4) Baso % (Auto) 0.5 % (0.2-1.2) Lymph # (Auto) 0.97 K/mm3 (0.9-3.2) [place] # (Auto) 0.5 K/mm3 (0.1-0.6) Eos # (Auto) 0.2 K/mm3 (0-0.3) Baso # (Auto) 0.0 K/mm3 (0.0-0.1) Abs Immat Gran (auto) 0.08 H K/mm3 (0.00-0.031) Absolute Neuts (auto) 5.6 K/mm3 (1.3-6.7) Absolute Nucleated RBC 0.000 K/mm3 (0.0-0.012) Nucleated RBC % 0.0 % (0.0-0.2) POC Capillary Glucose 280 H mg/dl 295 H mg/dl (65-105) (65-105) 05/24/24 05/24/24 05/24/24 07:28 11:39 14:33 WBC RBC Hgb Hct MCV MCH MCHC RDW Plt Count MPV Immature Gran % (Auto) Neut % (Auto) Lymph % (Auto) [place] % (Auto) Eos % (Auto) Baso % (Auto) Lymph # (Auto) [place] # (Auto) Eos # (Auto) Baso # (Auto) Abs Immat Gran (auto) Absolute Neuts (auto) Absolute Nucleated RBC Nucleated RBC % POC Capillary Glucose 237 H mg/dl 255 H mg/dl 246 H mg/dl (65-105) (65-105) (65-105) Patient hx anesthesia problems: none Family hx anesthesia problems: none Results Review: All pre-operative results and documents have been reviewed as part of the pre-operative evaluation. [facility]LY [facility] Past Medical History Medical History Diabetes mellitus Hypertension Pulmonary fibrosis Surgical History Surgical History Hx of CABG Social History Social History (
[2024-05-24 16:26] LABS: Glucose Point of Care 253 mg/dl (65-105)
[2024-05-24] MEDS: INSULIN ASPART (*BKC) 100 UNITS/ML 8 UNITS SUB-Q (17:19)
[2024-05-24] MEDS: INSULIN ASPART (*BKC) 100 UNITS/ML SUB-Q ×2 (17:19→20:51)
--- NOTE | 2024-05-24 18:05 | PM.IMPN ---
Progress Note: A&P Assessment and Plan (1) Chest discomfort: Code(s): R07.89 - Other chest pain Status: Acute Assessment and Plan: Patient with new onset of chest symptoms that are atypical. EKG showing tachycardia but otherwise no change. CXR and Trop ordered. resolved with warm blanket Tachypnea documented but not noted on exam He wasn't tachycardia on admission and feels this is related to being off of his metoprolol. Received Metoprolol 5mg IV once and resume oral metoprolol at lower dose to improve tachycardia. Checl LE doppler. Consider CTAQ chest if tachycardia does not improve as expected Tachycardia improved. pending surface echo d/c heparin gtt if echo ok see cardiology note. agree with plan May 24 update: Resolved (2) Weakness: Code(s): R53.1 - Weakness Status: Acute Assessment and Plan: Patient with progressive weakness ongoing for >2 months. TSH normal. Cortisol appropriate. CXR showing pulmonary fibrosis without change. 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 Controlling glucose better. Received IV fluids. CT brain showing no acute process. ST evaluate and treat PT/OT consulted. May 24 update: Improving. Requiring assist and recommended to go to SNF for rehab. The patient initially distant. During MDR team agreed it would be safest for him to go. Talked to the patient after and encourage compliance and he he said he would go to SNF for Y[facility]. Relate this to the MDR team. (3) Orthostatic hypotension: Code(s): I95.1 - Orthostatic hypotension Status: Acute Assessment and Plan: As above. Received IV fluids. Midodrine started this admission. improved. 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 Metoprolol tartrate started at lower dose 25 mg b.i.d. orthostatic hypotension resolved. check prn Check Echo Chest x-ray with pulmonary fibrosis (4) Hyperglycemia due to type 2 diabetes mellitus: Code(s): E11.65 - Type 2 diabetes mellitus with hyperglycemia Status: Acute Assessment and Plan: A1c 10.4. Patient is on insulin at home but noncompliant with diet since he is having trouble swallowing ST eval showing he needs minced and moist diet so diet adjusted (but patient is requesting pureed due to swallowing difficulty). No occult CVA to explain his dysphagia. Likely related to esophageal stricture. Had dilatation in June 2023, patient reports this helped greatly. Lantus 25units QHS. Currently on hold. NPO midnight. Added NovoLog 8 units t.i.d. with sliding scale. Adjust insulin as he eats more. Continue AccuCheks covering with sliding scale. Hypoglycemia protocol available as needed. May 24 update. Blood sugars in the high 200s. He will now be eating. Resume Lantus. (5) Hyponatremia: Code(s): E87.1 - Hypo-osmolality and hyponatremia Status: Inactive Assessment and Plan: Serial sodium 129-135. Suspect related to the hyperglycemia. Improved, continue to monitor. (6) CKD (chronic kidney disease) stage 3, GFR 30-59 ml/min: Code(s): N18.30 - Chronic kidney disease, stage 3 unspecified Status: Acute Assessment and Plan: Baseline Cr 1.7 with BUN 30 in March. Cr about the same here but BUN higher to suggest dehydration. Probably explains orthostatic vitals Renal Doppler negative for renal artery stenosis Cr better. Received IV fluids. (7) Dysphagia: Code(s): R13.10 - Dysphagia, unspecified Status: Acute Assessment and Plan: Patient with dysphagia over the past 6 months or so. He had what sounds like esophageal dilation in July at [place]. Patient feels his symptoms have recurred. GI consulted for possible EGD. NPO after midnight for this. Protonix 40 mg IV b.i.d. added EGD performed on 05/24 which demonstrated normal EGD to depth of insertion. An empiric dilation was performed
[2024-05-24 20:45] LABS: Glucose Point of Care 285 mg/dl (65-105)
[2024-05-24] MEDS: ONDANSETRON INJ 4 MG/2 ML VIAL IV PUSH (20:50)
[2024-05-24] MEDS: ALPRAZolam (*CRX) 0.25 MG TABLET PO (20:51)
[2024-05-24] MEDS: ACETAMINOPHEN 325 MG TABLET 650 MG PO (20:51)
[2024-05-24] MEDS: INSULIN GLARGINE (*BKC) 100 UNITS/ML 25 UNITS SUB-Q (20:52)
[2024-05-24] MEDS: LORazepam INJ (*CRX) 2 MG/ML VIAL 1 MG IV PUSH (22:04)
--- NOTE | 2024-05-24 23:26 | PC.NURSE ---
Patient move to room 207 for safety concerns. Message left for next of kin.
[2024-05-25] VITALS (18 sets, daily range): BP systolic 113–151; BP diastolic 54–64; PULSE 68–101; RESP 16–28; TEMP 35.8–37.4; O2SAT 90–100
[2024-05-25 04:00] LABS: Basophils Percent Auto 0.5 % (0.2-1.2); Eosinophils Absolute Auto 0.2 K/mm3 (0-0.3); Eosinophils Percent Auto 2.8 % (0-4.4); Hematocrit 35.1 % (42.0-52.0); Hemoglobin 11.1 g/dL (14.0-18.0); Immature Granulocyte Absolute 0.07 K/mm3 (0.00-0.031); Immature Granulocyte Percent A 1.2 % (0-0.5); Lymphocytes Absolute Auto 1.03 K/mm3 (0.9-3.2); Lymphocytes Percent Auto 18.1 % (18.3-44.2); Mean Corpuscular HGB Conc 31.6 g/dl (32-36); Monocytes Absolute Auto 0.4 K/mm3 (0.1-0.6); Monocytes Percent Auto 7.6 % (2.6-8.5); Neutrophils Percent Auto 69.8 % (45.5-73.1); Platelet Count Result 192 k/mm3 (150-375); Red Blood Count 3.58 M/mm3 (4.6-6.20); Red Cell Distribution Width 12.8 % (11.5-14.5); White Blood Count 5.7 K/mm3 (4.5-10.0)
[2024-05-25 04:12] LABS: Anion Gap 0 mmol/L (4-12); Blood Urea Nitrogen 38 mg/dL (9-20); Calcium 8.2 mg/dL (8.4-10.2); Carbon Dioxide 36 mmol/L (22-30); Chloride 98 mmol/L (98-107); Estimated CRCL calculation 40 ml/min; Estimated Glomerular Filt Rate 44; Glucose 219 mg/dL (65-110); Magnesium 2.3 mg/dL (1.6-2.3); Sodium 134 mmol/L (137-145)
[2024-05-25 08:07] LABS: Glucose Point of Care 248 mg/dl (65-105)
[2024-05-25] MEDS: RANOLAZINE 500 MG TAB.ER.12H PO ×2 (09:35→21:29)
[2024-05-25] MEDS: METOPROLOL TARTRATE 25 MG TABLET PO ×2 (09:35→21:29)
[2024-05-25] MEDS: CLOPIDOGREL BISULFATE 75 MG TABLET PO (09:35)
[2024-05-25] MEDS: SIMVASTATIN 20 MG TABLET 80 MG PO (09:35)
[2024-05-25] MEDS: ASPIRIN 81 MG ENTERIC TABLET PO (09:35)
[2024-05-25] MEDS: MIDODRINE HCL 2.5 MG TABLET 5 MG PO ×3 (09:36→16:51)
[2024-05-25] MEDS: PANTOPRAZOLE SODIUM IV 40 MG VIAL IV PUSH ×2 (09:36→21:29)
[2024-05-25] MEDS: INSULIN ASPART (*BKC) 100 UNITS/ML SUB-Q ×4 (09:38→21:30)
[2024-05-25] MEDS: INSULIN ASPART (*BKC) 100 UNITS/ML 8 UNITS SUB-Q ×3 (09:39→16:52)
[2024-05-25 11:59] LABS: Glucose Point of Care 260 mg/dl (65-105)
--- NOTE | 2024-05-25 14:11 | WPDANESPN ---
Anes - Prog Note Post-Op Date/Time: 05/25/24 14:11 Cardiovascular status: normal Respiratory status: normal Airway patency: baseline Mental status: baseline Post-Op hydration status: normal Vital Signs: Last Vital Signs Temp 35.8 C L 05/25/24 12:00 Pulse 91 05/25/24 12:00 Resp 22 H 05/25/24 12:00 BP 137/54 L 05/25/24 12:00 Pulse Ox 90 05/25/24 12:00 O2 Del Method Room Air 05/25/24 03:53 O2 Flow Rate 2 05/25/24 11:45 FiO2 92 05/23/24 16:00 Pain Score (VAS): 01/07 I/O: Intake & Output 05/24/24 05/25/24 05/25/24 23:59 07:59 15:59 Intake Total 490 220 Output Total 1130 200 Balance -640 -200 220 Laboratory Tests 05/25/24 03:36 05/25/24 03:36 05/24/24 05/24/24 05/24/24 14:33 16:22 20:42 WBC RBC Hgb Hct MCV MCH MCHC RDW Plt Count MPV Immature Gran % (Auto) Neut % (Auto) Lymph % (Auto) [place] % (Auto) Eos % (Auto) Baso % (Auto) Lymph # (Auto) [place] # (Auto) Eos # (Auto) Baso # (Auto) Abs Immat Gran (auto) Absolute Neuts (auto) Absolute Nucleated RBC Nucleated RBC % Sodium Potassium Chloride Carbon Dioxide Anion Gap BUN Creatinine Estim Creat Clear Calc Estimated GFR Glucose POC Capillary Glucose 246 H 253 H 285 H Calcium Magnesium 05/25/24 05/25/24 05/25/24 03:36 07:59 11:53 WBC 5.7 RBC 3.58 L Hgb 11.1 L Hct 35.1 L MCV 98.0 MCH 31.0 MCHC 31.6 L RDW 12.8 Plt Count 192 MPV 9.0 Immature Gran % (Auto) 1.2 H Neut % (Auto) 69.8 Lymph % (Auto) 18.1 L [place] % (Auto) 7.6 Eos % (Auto) 2.8 Baso % (Auto) 0.5 Lymph # (Auto) 1.03 [place] # (Auto) 0.4 Eos # (Auto) 0.2 Baso # (Auto) 0.0 Abs Immat Gran (auto) 0.07 H Absolute Neuts (auto) 4.0 Absolute Nucleated RBC 0.000 Nucleated RBC % 0.0 Sodium 134 L Potassium 5.0 Chloride 98 Carbon Dioxide 36 H Anion Gap 0 L BUN 38 H Creatinine 1.50 H Estim Creat Clear Calc 40 Estimated GFR 44 L Glucose 219 H POC Capillary Glucose 248 H 260 H Calcium 8.2 L Magnesium 2.3 Post-procedural complaints: none Patient Feedback: Patient satisfied with anesthetic care.
--- NOTE | 2024-05-25 15:02 | PCPTNOTE ---
Attempted PT treatment, pt refused stating I bout choked to . Pt reportedly took a drink of water and started coughing just prior to PT arrival. Pt continued to refused despite encouragement to participate. Pt's spouse present for refusal. RN aware.
[2024-05-25 16:56] LABS: Glucose Point of Care 215 mg/dl (65-105)
--- NOTE | 2024-05-25 18:34 | P.PNIM_ITS ---
Progress Note: A&P Assessment and Plan (1) Chest discomfort: Code(s): R07.89 - Other chest pain Status: Acute Assessment and Plan: Patient with new onset of chest symptoms that are atypical. EKG showing tachyca rdia but otherwise no change. CXR and Trop ordered. resolved with warm blanket Tachypnea documented but not noted on exam He wasn't tachycardia on admission and feels this is related to being off of his metoprolol. Received Metoprolol 5mg IV once and resume oral metoprolol at lower dose to improve tachycardia. Checl LE doppler. Consider CTAQ chest if tachycardia does not improve as expected Tachycardia improved. pending surface echo d/c heparin gtt if echo ok see cardiology note. agree with plan May 24 update: Resolved (2) Weakness: Code(s): R53.1 - Weakness Status: Acute Assessment and Plan: Patient with progressive weakness ongoing for >2 months. TSH normal. Cortisol appropriate. CXR showing pulmonary fibrosis without change. 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 Controlling glucose better. Received IV fluids. CT brain showing no acute process. ST evaluate and treat PT/OT consulted. May 24 update: Improving. Requiring assist and recommended to go to SNF for rehab. The patient initially distant. During MDR team agreed it would be safest for him to go. Talked to the patient after and encourage compliance and he he said he would go to SNF for [facility]. Relate this to the MDR team. (3) Orthostatic hypotension: Code(s): I95.1 - Orthostatic hypotension Status: Acute Assessment and Plan: As above. Received IV fluids. Midodrine started this admission. improved. CAMPUS RECRUITER Lasix discontinued. Metoprolol tartrate started at lower dose 25 mg b.i.d. orthostatic hypotension resolved. check prn Check Echo Chest x-ray with pulmonary fibrosis (4) Hyperglycemia due to type 2 diabetes mellitus: Code(s): E11.65 - Type 2 diabetes mellitus with hyperglycemia Status: Acute Assessment and Plan: A1c 10.4. Patient is on insulin at home but noncompliant with diet since he is having trouble swallowing ST eval showing he needs minced and moist diet so diet adjusted (but patient is requesting pureed due to swallowing difficulty). No occult CVA to explain his dysphagia. Likely related to esophageal stricture. Had dilatation in June 2023, patient reports this helped greatly. Lantus 25units QHS. Currently on hold. NPO midnight. Added NovoLog 8 units t.i.d. with sliding scale. Adjust insulin as he eats more. Continue AccuCheks covering with sliding scale. Hypoglycemia protocol available as needed. May 24 update. Blood sugars in the high 200s. He will now be eating. Resume Lantus. (5) Hyponatremia: Code(s): E87.1 - Hypo-osmolality and hyponatremia Status: Inactive Assessment and Plan: Serial sodium 129-135. Suspect related to the hyperglycemia. Improved, continue to monitor. (6) CKD (chronic kidney disease) stage 3, GFR 30-59 ml/min: Code(s): N18.30 - Chronic kidney disease, stage 3 unspecified Status: Acute Assessment and Plan: Baseline Cr 1.7 with BUN 30 in March. Cr about the same here but BUN higher to suggest dehydration. Probably explains orthostatic vitals Renal Doppler negative for renal artery stenosis Cr better. Received IV fluids. (7) Dysphagia: Code(s): R13.10 - Dysphagia, unspecified Status: Acute
[2024-05-25 20:28] LABS: Glucose Point of Care 279 mg/dl (65-105)
[2024-05-25] MEDS: INSULIN GLARGINE (*BKC) 100 UNITS/ML 25 UNITS SUB-Q (21:29)
[2024-05-26] VITALS (19 sets, daily range): BP systolic 105–142; BP diastolic 53–86; PULSE 79–91; RESP 18–22; TEMP 36.2–36.7; O2SAT 86–100
[2024-05-26 04:37] LABS: Basophils Percent Auto 0.3 % (0.2-1.2); Eosinophils Absolute Auto 0.1 K/mm3 (0-0.3); Eosinophils Percent Auto 1.4 % (0-4.4); Hemoglobin 10.8 g/dL (14.0-18.0); Immature Granulocyte Absolute 0.09 K/mm3 (0.00-0.031); Lymphocytes Absolute Auto 0.94 K/mm3 (0.9-3.2); Lymphocytes Percent Auto 10.9 % (18.3-44.2); Mean Corpuscular HGB Conc 30.9 g/dl (32-36); Mean Corpuscular Hemoglobin 30.8 pg (26-34); Mean Corpuscular Volume 99.7 fl (80-100); Mean Platelet Volume 8.8 fl (7.4-10.4); Monocytes Absolute Auto 0.5 K/mm3 (0.1-0.6); Monocytes Percent Auto 6.3 % (2.6-8.5); Neutrophils Absolute Auto 6.9 K/mm3 (1.3-6.7); Neutrophils Percent Auto 80.1 % (45.5-73.1); Platelet Count Result 213 k/mm3 (150-375); Red Blood Count 3.51 M/mm3 (4.6-6.20); Red Cell Distribution Width 12.9 % (11.5-14.5); White Blood Count 8.6 K/mm3 (4.5-10.0)
[2024-05-26 04:49] LABS: Anion Gap 0 mmol/L (4-12); Blood Urea Nitrogen 36 mg/dL (9-20); Calcium 8.3 mg/dL (8.4-10.2); Carbon Dioxide 38 mmol/L (22-30); Chloride 96 mmol/L (98-107); Estimated CRCL calculation 40 ml/min; Estimated Glomerular Filt Rate 44; Glucose 226 mg/dL (65-110); Magnesium 2.1 mg/dL (1.6-2.3); Potassium 4.9 mmol/L (3.4-5.0); Sodium 134 mmol/L (137-145)
[2024-05-26 08:14] LABS: Glucose Point of Care 252 mg/dl (65-105)
[2024-05-26] MEDS: RANOLAZINE 500 MG TAB.ER.12H PO ×2 (10:18→21:21)
[2024-05-26] MEDS: CLOPIDOGREL BISULFATE 75 MG TABLET PO (10:18)
[2024-05-26] MEDS: MIDODRINE HCL 2.5 MG TABLET 5 MG PO ×3 (10:18→17:48)
[2024-05-26] MEDS: ASPIRIN 81 MG ENTERIC TABLET PO (10:18)
[2024-05-26] MEDS: METOPROLOL TARTRATE 25 MG TABLET PO ×2 (10:18→21:21)
[2024-05-26] MEDS: SIMVASTATIN 20 MG TABLET 80 MG PO (10:18)
[2024-05-26] MEDS: INSULIN ASPART (*BKC) 100 UNITS/ML SUB-Q ×2 (10:19→12:57)
[2024-05-26] MEDS: INSULIN ASPART (*BKC) 100 UNITS/ML 8 UNITS SUB-Q ×3 (10:19→17:48)
[2024-05-26] MEDS: PANTOPRAZOLE SODIUM IV 40 MG VIAL IV PUSH (10:19)
[2024-05-26] MEDS: FUROSEMIDE INJ 40 MG/4 ML VIAL IV PUSH (10:20)
--- NOTE | 2024-05-26 11:57 | PM.IMPN ---
Progress Note: A&P Assessment and Plan (1) Chest discomfort: Code(s): R07.89 - Other chest pain Status: Acute Assessment and Plan: Patient with new onset of chest symptoms that are atypical. EKG showing tachycardia but otherwise no change. CXR and Trop ordered. resolved with warm blanket Tachypnea documented but not noted on exam He wasn't tachycardia on admission and feels this is related to being off of his metoprolol. Received Metoprolol 5mg IV once and resume oral metoprolol at lower dose to improve tachycardia. Checl LE doppler. Consider CTAQ chest if tachycardia does not improve as expected Tachycardia improved. pending surface echo d/c heparin gtt if echo ok see cardiology note. agree with plan May 24 update: Resolved (2) Weakness: Code(s): R53.1 - Weakness Status: Acute Assessment and Plan: Patient with progressive weakness ongoing for >2 months. TSH normal. Cortisol appropriate. CXR showing pulmonary fibrosis without change. 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 Controlling glucose better. Received IV fluids. CT brain showing no acute process. ST evaluate and treat PT/OT consulted. May 24 update: Improving. Requiring assist and recommended to go to SNF for rehab. The patient initially distant. During MDR team agreed it would be safest for him to go. Talked to the patient after and encourage compliance and he he said he would go to SNF for [facility]. Relate this to the MDR team. (3) Orthostatic hypotension: Code(s): I95.1 - Orthostatic hypotension Status: Acute Assessment and Plan: As above. Received IV fluids. Midodrine started this admission. improved. 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 Metoprolol tartrate started at lower dose 25 mg b.i.d. orthostatic hypotension resolved. check prn Check Echo Chest x-ray with pulmonary fibrosis (4) Hyperglycemia due to type 2 diabetes mellitus: Code(s): E11.65 - Type 2 diabetes mellitus with hyperglycemia Status: Acute Assessment and Plan: A1c 10.4. Patient is on insulin at home but noncompliant with diet since he is having trouble swallowing ST eval showing he needs minced and moist diet so diet adjusted (but patient is requesting pureed due to swallowing difficulty). No occult CVA to explain his dysphagia. Likely related to esophageal stricture. Had dilatation in June 2023, patient reports this helped greatly. Lantus 25units QHS. Currently on hold. NPO midnight. Added NovoLog 8 units t.i.d. with sliding scale. Adjust insulin as he eats more. Continue AccuCheks covering with sliding scale. Hypoglycemia protocol available as needed. May 24 update. Blood sugars in the high 200s. He will now be eating. Resume Lantus. May 26 update: Blood sugars moderately uncontrolled. Increase Lantus from 25-33 units q.h.s. starting tonight. (5) Hyponatremia: Code(s): E87.1 - Hypo-osmolality and hyponatremia Status: Inactive Assessment and Plan: Serial sodium 129-135. Suspect related to the hyperglycemia. Improved, continue to monitor. (6) CKD (chronic kidney disease) stage 3, GFR 30-59 ml/min: Code(s): N18.30 - Chronic kidney disease, stage 3 unspecified Status: Acute Assessment and Plan: Baseline Cr 1.7 with BUN 30 in March. Cr about the same here but BUN higher to suggest dehydration. Probably explains orthostatic vitals Renal Doppler negative for renal artery stenosis Cr better. Received IV fluids. (7) Dysphagia: Code(s): R13.10 - Dysphagia, unspecified Status: Acute Assessment and Plan: Patient with dysphagia over the past 6 months or so. He had what sounds like esophageal dilation in July at [place]. Patient feels his symptoms have recurred. GI consulted for possible EGD. NPO after midnight for this. Protonix 40 mg IV b.i.d.
[2024-05-26 12:19] LABS: Glucose Point of Care 272 mg/dl (65-105)
[2024-05-26 12:37] LABS: NT Pro B Type Natriuretic Pept 9810 pg/mL (19.9-100)
--- NOTE | 2024-05-26 15:35 | PCSTNOTE ---
Patient seen for bedside swallow evaluation with reports from nurse that chest congestion has increased. Pt admits to having some trouble and was cooperative for all request today. Patient observed with bites of pudding with no distress noted and apparently normal swallow function. Taking a drink from his thin water caused an immediate cough and clear. Mildly thick liquid drinks monitored for several swallows with no distress, no cough and apparently normal swallow. Although MBS on 05-20-24 demonstrated no aspiration, due to ongoing concerns with safe oral intake, and judging from today's bedside swallow evaluation, patient and staff have agreed to adjust diet to mildly thickened liquids and continue with puree foods. A repeat MBS may be beneficial on Tuesday, if the patient is still here.
[2024-05-26 17:00] LABS: Glucose Point of Care 147 mg/dl (65-105)
[2024-05-26 21:06] LABS: Glucose Point of Care 145 mg/dl (65-105)
[2024-05-26] MEDS: INSULIN GLARGINE (*BKC) 100 UNITS/ML 33 UNITS SUB-Q (21:21)
[2024-05-26] MEDS: ALPRAZolam (*CRX) 0.25 MG TABLET PO (21:21)
[2024-05-27] VITALS (8 sets, daily range): BP systolic 116–132; BP diastolic 51–62; PULSE 74–86; RESP 16–22; TEMP 35.6–36.6; O2SAT 91–100
[2024-05-27 04:35] LABS: Hematocrit 30.4 % (42.0-52.0); Hemoglobin 9.7 g/dL (14.0-18.0); Mean Corpuscular HGB Conc 31.9 g/dl (32-36); Mean Corpuscular Hemoglobin 31.4 pg (26-34); Mean Corpuscular Volume 98.4 fl (80-100); Mean Platelet Volume 8.4 fl (7.4-10.4); Platelet Count Result 191 k/mm3 (150-375); Red Blood Count 3.09 M/mm3 (4.6-6.20); Red Cell Distribution Width 12.9 % (11.5-14.5); White Blood Count 8.2 K/mm3 (4.5-10.0)
[2024-05-27 05:02] LABS: Blood Urea Nitrogen 37 mg/dL (9-20); Calcium 8.2 mg/dL (8.4-10.2); Carbon Dioxide > 40 mmol/L (22-30); Chloride 94 mmol/L (98-107); Estimated CRCL calculation 38 ml/min; Estimated Glomerular Filt Rate 41; Glucose 89 mg/dL (65-110); Potassium 4.2 mmol/L (3.4-5.0); Sodium 134 mmol/L (137-145)
[2024-05-27 08:21] LABS: Glucose Point of Care 90 mg/dl (65-105)
[2024-05-27] MEDS: SIMVASTATIN 20 MG TABLET 80 MG PO (09:31)
[2024-05-27] MEDS: RANOLAZINE 500 MG TAB.ER.12H PO (09:31)
[2024-05-27] MEDS: CLOPIDOGREL BISULFATE 75 MG TABLET PO (09:31)
[2024-05-27] MEDS: ASPIRIN 81 MG ENTERIC TABLET PO (09:31)
[2024-05-27] MEDS: MIDODRINE HCL 2.5 MG TABLET 5 MG PO ×2 (09:31→13:22)
[2024-05-27] MEDS: METOPROLOL TARTRATE 25 MG TABLET PO (09:31)
[2024-05-27] MEDS: PANTOPRAZOLE SODIUM IV 40 MG VIAL IV PUSH (09:32)
--- NOTE | 2024-05-27 10:39 | PM.DS ---
DS: Admitting Diagnosis Discharge Date May 27, 2024 Admitting Diagnosis Weakness and dysphagia DS: Discharge Diagnosis Discharge Diagnosis (1) Choking: Code(s): T17.308A - Unspecified foreign body in larynx causing other injury, initial encounter Status: Acute (2) Acute respiratory failure with hypoxia: Code(s): J96.01 - Acute respiratory failure with hypoxia Status: Acute (3) Dysphagia: Code(s): R13.10 - Dysphagia, unspecified Status: Acute (4) Orthostatic hypotension: Code(s): I95.1 - Orthostatic hypotension Status: Acute (5) Hyperglycemia due to type 2 diabetes mellitus: Code(s): E11.65 - Type 2 diabetes mellitus with hyperglycemia Status: Acute DS: Summary Hospital Course Hospital Course: 84-year-old male with PMH CAD status post CABG, IDDM, hypertension, pulmonary fibrosis, history of partial sigmoid colon resection secondary to diverticulitis presents with weakness and elevated glucose. The patient has been evaluated by speech therapy and status post EGD. Stable for discharge on 05/27/[address] [facility] for therapy and speech therapy. He will be discharged on nasal cannula to keep SpO2 greater than 92%. He was DNR during the admission. Please see the following for detailed problems: Other chest pain Patient evaluated by Cardiology. Troponin peaked at 5.9. Thought to be due to tachycardia for discontinuation of metoprolol. Metoprolol resumed at a lower dose. Chest pain resolved. Weakness and orthostatic hypotension: Improved but not resolved. Patient is stable for discharge to [facility] for rehab. Hypotension was likely playing a role. Hypotension improved after discontinuation of Lasix and decrease of metoprolol. Midodrine started at 5 mg t.i.d.. (Hyperglycemia due to type 2 diabetes mellitus: Fluctuations due to barriers to eating. On day of discharge patient is eating well with the modified diet. His insulin was increased to basal plus bolus dosing however sugars have trended down therefore he will only be discharged on his INSOLE BEVELER glargine 32 units q.a.m.. To be monitored at rehab Hyponatremia: Improved. Related to hyperglycemia and hypovolemia CKD: Stable Dysphagia: Status post EGD on 05/24 which demonstrated normal EGD to depth of insertion. An empiric dilation was performed. Patient appears to have better swallowing post. Seen by speech therapy and will continue to be seen at [facility]. Mildly thickened liquid with pureed foods to continue Acute respiratory failure with hypoxia: Also likely chronic. He has popcorn lungs by auscultation. Only required 1-2 L on discharge. Continue nasal cannula keep SpO2 greater than 92%. He has evidence of pulmonary fibrosis. Pulmonology follow-up information provided. Time Spent with Patient Time attestation: Total time spent providing and/or coordinating discharge services: Exam Const: General: comfortable and no acute distress Eyes: Pupils: Equal, round and reactive pupils present Neck: Neck: supple Resp: Effort & Inspection: normal respiratory effort Other: Popcorn lungs diffusely Cardio: Rate: regular rate Rhythm: regular rhythm GI: GI Palp: Yes Soft to palpation and No Tenderness to palpation present (GI) Extrem: General: no edema DS: Data Data Completed and Pending Labs on day of discharge: Labs from last 24 hours 05/27/24 05/27/24 05/26/24 08:10 04:27 20:33 WBC 8.2 RBC 3.09 L Hgb 9.7 L Hct 30.4 L MCV 98.4 MCH 31.4 MCHC 31.9 L RDW 12.9 Plt Count 191 MPV 8.4 Sodium 134 L Potassium 4.2 Chloride 94 L Carbon Dioxide > 40 H Anion Gap BUN 37 H Creatinine 1.60 H Estim Creat Clear Calc 38 Estimated GFR 41 L Glucose 89 POC Capillary Glucose 90 145 H Calcium 8.2 L Magnesium 2.0 NT-Pro-B Natriuret Pep 05/26/24 05/26/24 05/26/24 16:54 11:47 04:30 WBC
[2024-05-27 12:24] LABS: Glucose Point of Care 189 mg/dl (65-105)
--- NOTE | 2024-05-27 12:58 | PCSTNOTE ---
Attempted ST session for swallow exercises but patient refused since he is getting ready to leave. Pt and indicated they had no further questions regarding exercises or swallow precautions.
== END 2024-05-27 13:40 | DRG 637 ==
LOC: ANHED 09:34 → ANHIMU 13:34
PROVIDERS: Internal Medicine; Internal Medicine Gastroenterology; Nurse Practitioner; Admitting Provider Hospitalist; Emergency Provider Emergency Medicine; PCP Internal Medicine; Visit Provider General Practice
PROC: 0DJ08ZZ Inspection of Upper Intestinal Tract, Via Natural or Artificial Opening Endoscopic (ICD-10-PCS; CPT 43235; principal; 2024-05-24 16:30)
DX: E11.65 Type 2 diabetes mellitus with hyperglycemia (principal); J96.21 Acute and chronic respiratory failure with hypoxia; E87.1 Hypo-osmolality and hyponatremia; I24.89 Other forms of acute ischemic heart disease; R13.13 Dysphagia, pharyngeal phase; E11.22 Type 2 diabetes mellitus with diabetic chronic kidney disease; I95.1 Orthostatic hypotension; I25.10 Atherosclerotic heart disease of native coronary artery without angina pectoris; I12.9 Hypertensive chronic kidney disease with stage 1 through stage 4 chronic kidney disease, or unspecified chronic kidney disease; J84.10 Pulmonary fibrosis, unspecified; N18.30 Chronic kidney disease, stage 3 unspecified; R00.0 Tachycardia, unspecified; Z66 Do not resuscitate; Z20.822 Contact with and (suspected) exposure to COVID-19; Z90.49 Acquired absence of other specified parts of digestive tract; Z95.1 Presence of aortocoronary bypass graft; Z79.4 Long term (current) use of insulin; Z79.82 Long term (current) use of aspirin; Z79.02 Long term (current) use of antithrombotics/antiplatelets
CPT/HCPCS: 36415; 70450; 71045; 71046; 80048; 80053; 80061; 80069; 81001; 82010; 82533; 82550; 82948; 83036; 83735; 83880; 83935; 84100; 84443; 84484; 85025; 85027; 85610; 85730; 87637; 92526; 92610; 92611; 93005; 93306; 93308; 93970; 93976; 96361; 96372; 96374; 96376; 97110; 97161; 97165; 97530; 97535; 99285; A9270; C8924; C9113; G0378; J1644; J1650; J1815; J1940; J2060; J2405; J2704; J7030; J7050; J7120; Q9957

== ENCOUNTER 2024-08-12 21:06 | Inpatient (IN) | payer MEDICARE, SELFPAY ==
--- NOTE | ~2024-08-12 | CT_ITS ---
CT brain wo con Ordering provider: Ish Avendano MD History: 84 years Male with . syncope . Comparison: May 20, 2024 Technique: CT of the head without contrast. Radiation reduction technique utilized. DLP is 681 mGy-cm. FINDINGS: BRAIN PARENCHYMA AND CSF SPACES: Mild leukoaraiosis and diffuse cortical atrophy. Mild atheromatous d isease. No midline shift, mass effect or hemorrhage. The brain parenchyma and CSF spaces are otherwi se normal. VISUALIZED PARANASAL SINUSES: Well aerated. MASTOIDS: Effusion in the left mastoid air cells. BONES: The bones appear intact. SOFT TISSUES: Visualized nasopharynx is normal. Superficial soft tissues are normal. IMPRESSION: No acute intracranial findings. Reviewed, dictated and finalized at location A.
--- NOTE | ~2024-08-12 | CT_ITS ---
CT of the Abdomen and Pelvis: Indication: Abdominal pain Technique: 2.5 mm axial scans were obtained through the abdomen and pelvis following intravenous adm inistration of 100 cc of Omnipaque 350. Dose reduction technique was used on this scan by utilizing a utomated exposure control and iterative reconstruction technique. The dose-length product (DLP) was 1 000.56 mGy-cm. Findings: Scans through the lung bases demonstrates severe bibasilar chronic interstitial disease wi th extensive interstitial thickening and honeycomb formation.. The liver, spleen, pancreas, adrenals and kidneys are within normal limits. Small calcified gallstone s noted. No evidence of aortic aneurysm. No lymphadenopathy. No bowel obstruction or bowel wall thickening. Rectosigmoid anastomosis noted. Images through the pelvis were performed. Urinary bladder unremarkable. No pelvic mass seen. No ascit es. Small fat-containing left inguinal hernia noted. Impression: No acute abnormality evident. Severe bibasilar chronic interstitial pulmonary disease. Cholelithiasis. Small fat-containing left inguinal hernia. Reviewed, dictated and finalized at location . Impression: No acute abnormality evident. Severe bibasilar chronic interstitial pulmonary disease. Cholelithiasis. Small fat-containing left inguinal hernia.
--- NOTE | ~2024-08-12 | US_ITS ---
EXAMINATION: US carotid duplex BI DATE: 08/15/2024 14:43 INDICATION: Syncope. TECHNIQUE: Grayscale, color Doppler, and pulsed Doppler images of the cervical carotid arteries were obtained. The degree of vessel stenosis is placed in one of the following categories: normal, <50%, 5 0-69%, >=70% but less than near-occlusion, near-occlusion, or total occlusion. Note that percent sten osis relative to normal distal artery lumen diameter is indirectly measured from velocity measurement s as described by Tc, et al. Radiology 2003; 229:340-346. COMPARISON: None. FINDINGS: RIGHT: The right common carotid artery (CCA) peak systolic velocity (PSV) is 76 cm/s. The right internal car otid artery (ICA) PSV is 89 cm/s. The right ICA end-diastolic velocity (EDV) is 13 cm/s. The right IC A/CCA PSV ratio is 1.2. Grayscale and color Doppler images yield an estimate of <50% diameter reducti on from plaque in the ICA. There is antegrade flow in the right vertebral artery. LEFT: The left CCA PSV is 65 cm/s. The left ICA PSV is 85 cm/s. The left ICA EDV is 17 cm/s. The left ICA/C CA PSV ratio is 1.3. Grayscale and color Doppler images yield an estimate of <50% diameter reduction from plaque in the ICA. There is antegrade flow in the left vertebral artery. IMPRESSION: 1. <50% stenosis in the right internal carotid artery. 2. <50% stenosis in the left internal carotid artery. Reviewed, dictated and finalized at location A.
--- NOTE | ~2024-08-12 | XR_ITS ---
EXAMINATION: XR chest 1V portable DATE: 08/17/2024 12:00 INDICATION: Shortness of breath. TECHNIQUE: A single frontal view of the chest was obtained. COMPARISON: Chest single view 08/12/2024, CT abdomen and pelvis 08/12/2024 FINDINGS: The lung volumes are small. There are airspace and interstitial opacities in all lung zones bilaterally predominantly in the mid and lower lung zones. No pleural effusion or pneumothorax. The heart size is normal. Median sternotomy wires are noted. Calcified right hilar lymph nodes are consis tent with old granulomatous disease. IMPRESSION: 1. Small lung volumes with worsening diffuse lung disease, consistent with chronic interstitial lung disease with superimposed pneumonia versus pulmonary edema versus acute exacerbation. Reviewed, dictated and finalized at location A. IMPRESSION: 1. 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
--- NOTE | ~2024-08-12 | XR_ITS ---
XR chest 1V portable Ordering provider: Ish Avendano MD History: 84 years Male with . SOB weakness . Comparison: May 10, 2024 FINDINGS: MEDIASTINUM: The cardiac silhouette is not enlarged. Postoperative changes in the mediastinum. LUNGS: No effusions or pneumothorax. Fibrotic changes in the lung bases. Superimposed pneumonitis is not excluded. OTHER: No free air under the diaphragm. IMPRESSION: Fibrotic changes in the lung bases. Superimpose pneumonitis is not excluded. Reviewed, dictated and finalized at location A.
[2024-08-12 21:03] VITALS: BP 103/63; PULSE 93; RESP 25; TEMP 36.7; O2SAT 99
--- NOTE | 2024-08-12 21:12 | ECG_ITS ---
Test Date: 2024-08-12 21:17:34 Measurements Intervals [place] Rate: 96 P: -9 DE: 216 QRS: 238 QRSD: 165 T: 20 QT: 380 QTc: 481 Interpretive Statements SINUS RHYTHM WITH FIRST DEGREE AV BLOCK RIGHT AXIS DEVIATION POSSIBLE LEFT ATRIAL ENLARGEMENT RIGHT BUNDLE BRANCH BLOCK AND POSSIBLE RIGHT VENTRICULAR HYPERTROPHY CANNOT R/O SEPTAL INFARCT, AGE INDETERMINATE ABNORMAL ECG Compared to ECG 05/24/2024 06:50:17 HEART RATE HAS DECREASED Electronically Signed On 08-13-2024 06:21:48 CDT by Ramirez Dee D.O.
[2024-08-12 21:21] VITALS: O2SAT 100
[2024-08-12 21:27] LABS: Basophils Percent Auto 0.5 % (0.2-1.2); Eosinophils Absolute Auto 0.2 K/mm3 (0-0.3); Eosinophils Percent Auto 1.8 % (0-4.4); Hematocrit 36.5 % (42.0-52.0); Hemoglobin 12.2 g/dL (14.0-18.0); Immature Granulocyte Absolute 0.13 K/mm3 (0.00-0.031); Immature Granulocyte Percent A 1.5 % (0-0.5); Lymphocytes Absolute Auto 2.19 K/mm3 (0.9-3.2); Lymphocytes Percent Auto 25.9 % (18.3-44.2); Mean Corpuscular HGB Conc 33.4 g/dl (32-36); Mean Corpuscular Volume 92.6 fl (80-100); Mean Platelet Volume 8.6 fl (7.4-10.4); Monocytes Absolute Auto 0.6 K/mm3 (0.1-0.6); Monocytes Percent Auto 6.9 % (2.6-8.5); Neutrophils Absolute Auto 5.4 K/mm3 (1.3-6.7); Neutrophils Percent Auto 63.4 % (45.5-73.1); Platelet Count Result 213 k/mm3 (150-375); Red Blood Count 3.94 M/mm3 (4.6-6.20); Red Cell Distribution Width 12.4 % (11.5-14.5); White Blood Count 8.5 K/mm3 (4.5-10.0)
[2024-08-12] MEDS: ONDANSETRON INJ 4 MG/2 ML VIAL IV PUSH (21:34)
[2024-08-12] MEDS: SODIUM CHLORIDE 0.9% IV 500 ML 999 ML IV CONT (21:34)
[2024-08-12 21:37] LABS: Alanine Aminotransferase 17 U/L (6-50); Alkaline Phosphatase 114 U/L (38-126); Anion Gap 13 mmol/L (4-12); Aspartate Amino Transferase 31 U/L (17-59); Bilirubin,Total 0.4 mg/dL (0.2-1.3); Blood Urea Nitrogen 20 mg/dL (9-20); Calcium 9.2 mg/dL (8.4-10.2); Carbon Dioxide 36 mmol/L (22-30); Chloride 77 mmol/L (98-107); Estimated CRCL calculation 39 ml/min; Estimated Glomerular Filt Rate 44; Glucose 198 mg/dL (65-110); Magnesium 1.8 mg/dL (1.6-2.3); Sodium 126 mmol/L (137-145)
[2024-08-12 21:41] LABS: Lactic Acid Reflex 6.3 mmol/L (0.7-2.0)
[2024-08-12 21:47] VITALS: BP 112/57; PULSE 87; RESP 20; O2SAT 97
[2024-08-12 21:48] LABS: NT Pro B Type Natriuretic Pept 990 pg/mL (19.9-100); Troponin I 0.019 ng/mL (0.000-0.034)
[2024-08-12 22:05] LABS: Influenza A QL RT-PCR Negative (Negative); Influenza B QL RT-PCR Negative (Negative); RSV RNA, RT-PCR Negative (Negative); SARS-CoV-2 RNA PCR Negative (Negative)
[2024-08-12] MEDS: SODIUM CHLORIDE 0.9% IV 1,000 ML 999 ML IV CONT (23:02)
[2024-08-12 23:20] VITALS: BP 121/63; PULSE 86; RESP 14; O2SAT 100
[2024-08-13] VITALS (25 sets, daily range): BP systolic 75–160; BP diastolic 30–75; PULSE 85–130; RESP 16–20; TEMP 36–36.5; O2SAT 89–100; BMI 23.7
[2024-08-13 00:25] LABS: Reflex Lactic Acid Yes or No Add Lactic
[2024-08-13 01:00] LABS: Lactic Acid 2.3 mmol/L (0.7-2.0)
--- NOTE | 2024-08-13 01:07 | ED.GENADULT ---
HPI - General Adult General Chief complaint: Weakness Stated complaint: WEAKNESS, SYNCOPE Time Seen by Provider: 08/12/24 21:11 History of Present Illness HPI narrative: Patient a 4-year-old gentleman who presents emergency department with chief complaint of syncopal episode. The patient was in the bathroom having a bowel movement and had a syncopal episode the patient has prior history of chronic kidney disease and diabetes the patient has been home for about 6 weeks after being admitted for rehab the patient does report that he has had some increasing peripheral edema denies shortness of breath Related Data Allergies Allergy/AdvReac Type Severity Reaction Status Date / Time No Known Allergies Allergy Verified 08/12/24 21:14 Review of Systems Review of Systems: A 10 system review of systems was completed on the patient and is negative except for what is stated in the HPI. Nursing and ancillary documentation was reviewed. FOR[facility]LY [facility], LATER [facility] Past Medical History Medical History Diabetes mellitus Esophageal abnormality sp gastritis-required dilation Hypertension Pulmonary fibrosis desaturations noted, currently on 2 Liters oxygen at rest Surgical History Surgical History Hx of CABG Social History Social History Smoking status: Never smoker Alcohol intake: never Substance use: never Substance use type: does not use Do You Feel Safe in your Home?: Yes Lack of Transportation: No Lack of Food: Never True Current Housing: I Have Housing Concerned About Future Housing: No Difficulty Paying Gas/Electric Bills: No Difficulty Paying for Meds: No Currently Unemployed: No Education: Don't Know Difficulty w/ Childcare or Family Care: No Spiritual care concerns: No Exam Narrative: GENERAL: Well-appearing, well-nourished, and in no acute distress. HEAD: Normocephalic, atraumatic. EYES: PERRLA and EOMI. ENT: Nares clear, no rhinorrhea or epistaxis. Mucous membranes moist. NECK: Supple. CHEST: Clear to auscultation. No respiratory distress. HEART: Regular rate and rhythm. No murmur heard. Normal peripheral pulses. ABDOMEN: Soft, nontender, nondistended, normal active bowel sounds. EXTREMITIES: Normal range of motion. No edema. SKIN: Warm, dry, no rash. NEURO: No focal deficits. Alert and oriented x3. PSYCH: Normal mood and affect. Course Vital Signs Vital signs: Vital Signs Temperature 36.7 C 08/12/24 21:03 Pulse Rate 93 08/12/24 21:03 Respiratory Rate 25 H 08/12/24 21:03 Blood Pressure 103/63 08/12/24 21:03 Pulse Oximetry 99 08/12/24 21:03 Oxygen Delivery Room Air 08/12/24 21:03 Temperature 36.7 C 08/12/24 21:03 Pulse Rate 86 08/12/24 23:20 Respiratory Rate 14 08/12/24 23:20 Blood Pressure 121/63 08/12/24 23:20 Pulse Oximetry 100 08/12/24 23:20 Oxygen Delivery Nasal Cannula 08/12/24 21:21 Oxygen Flow Rate 2 08/12/24 21:21 Medical Decision Making MDM Narrative Medical decision making narrative: Differential diagnosis includes dehydration, electrolyte abnormality, cardiac syncope, dysrhythmia, CT head showed no acute abnormality CT abdomen pelvis showed no acute findings COVID flu and RSV were negative BNP was 990 troponin was 0.019 The patient was initially vomiting in the emergency department and also had a significantly elevated lactic acid. Fluid resuscitation was started and lactate has come down to 2.3. Vital Signs Vital Signs: Vital Signs Temperature 36.7 C 08/12/24 21:03 Pulse Rate 93 08/12/24 21:03 Respiratory Rate 25 H 08/12/24 21:03 Blood Pressure 103/63 08/12/24 21:03 Pulse Oximetry 99 08/12/24 21:03 Oxygen Delivery Room Air 08/12/24 21:03 Temperature 36.7 C 08/12/24 21:03 Pulse Rate 86
[2024-08-13 01:47] LABS: Add Urine Microscopic? YES; Appearance Urine Clear (Clear); Bacteria Urine None Seen /hpf; Bilirubin Urine Negative (Negative); Blood Urine Negative (Negative); Color Urine Yellow (Yellow); Glucose Urine UA Negative (Negative); Ketones Urine Negative (Negative); Leukocyte Esterase Ur Negative LEU/UL (Negative); Nitrate Urine Negative (Negative); Protein Urine Trace mg/dL (Negative); RBC Urine 0-2 /hpf (0-2); Specific Grav Ur > 1.045 (1.001-1.035); Squamous Epithelial Cell Urine Occasional /hpf (Few); Urobilinogen Urine 0.2 mg/dL (<2.0); WBC Urine 0-5 /hpf (0-3)
[2024-08-13] MEDS: SODIUM CHLORIDE 0.9% IV 1,000 ML 100 ML IV CONT ×3 (02:31→21:50)
--- NOTE | 2024-08-13 02:35 | ADMGEN ---
This patient, Reshma Redmond, was admitted to Medical Room 261-01. Patient/family oriented to hospital policies and general routines including ID bracelet, bed and alarms, visiting hours, pain management, procedures, bathroom and other care routines, personal items, smoking policy, room service/diet, and visiting hours. Information on how to activate the Rapid Response Team has been discussed. Patient/Family are encouraged to report perceived risks to care and to ask questions if they do not understand what they are told or what they should do.
--- NOTE | 2024-08-13 04:53 | PM.IMHP ---
H&P: HPI History of Present Illness Date/Time: 08/13/24 04:53 Chief Complaint: Fall at home Narrative: Mr. Redmond is a pleasant 84-year-old male who is a fair historian with past medical history CAD status post CABG, CKD, insulin-dependent diabetes mellitus, hypertension, pulmonary fibrosis, chronic respiratory failure on 2 L nasal cannula, chronic hyponatremia history of partial sigmoid colon resection secondary to diverticulitis, history of dysphagia status post EGD on 05/24 demonstrating normal EGD to depth of insertion, empiric dilation performed. Patient lives with . He has been in his usual and reports no illness recently. He reports he was on the toilet for some time and when he got up he felt weak and fainted and fell to the floor. [place] ER evaluation demonstrated a stable male with temperature 97.6?, pulse rate 97, respiratory rate 18, 92% O2 saturation on 2 L nasal cannula, blood pressure 75/51, coming up to 132/66 status post fluid resuscitation. Hemoglobin 12.2, WBC 8.5. Sodium 126 baseline 130-134, anion gap 13, bicarb 36, chloride 77, serum creatinine 1.5 which is around his baseline, BUN 20, lactic acid 6.3 coming on to 2.3 status post fluids. BNP 990 urinalysis and quad viral screen unremarkable. Patient received 1.5 cc sodium chloride fluid resuscitation. Head CT with no intracranial findings. Chest x-ray with fibrotic changes at the lung bases. Abdomen pelvis CT reported by ER physician without acute abnormality. The brief writer is unable to access the reported this time. Review of Systems Review of Systems: All systems reviewed & are unremarkable except as noted in HPI and below (Subjective) [facility] Past Medical History Medical History Diabetes mellitus Esophageal abnormality sp gastritis-required dilation Hypertension Pulmonary fibrosis desaturations noted, currently on 2 Liters oxygen at rest Surgical History Surgical History Hx of CABG Family History Family History (Updated 08/13/24 @ 02:38 by Jena Grayson RN) Father Prostate carcinoma Mother Diabetes mellitus Sibling Colon cancer Social History Social History Smoking status: Never smoker Alcohol intake: never Substance use: never Substance use type: does not use Do You Feel Safe in your Home?: Yes Lack of Transportation: No Lack of Food: Never True Current Housing: I Have Housing Concerned About Future Housing: No Difficulty Paying Gas/Electric Bills: No Difficulty Paying for Meds: No Currently Unemployed: No Education: High School Diploma/GED Difficulty w/ Childcare or Family Care: No Spiritual care concerns: No Meds Home Medications and Allergies Home Medications Medication Instructions Recorded Confirmed Type alprazolam 0.25 mg tablet 0.25 mg PO HS #12 tabs 06/09/24 08/13/24 Rx aspirin 81 mg chewable tablet 81 mg PO DAILY #0 tabs 06/09/24 08/13/24 Rx (Children's Aspirin) calcium carbonate 200 mg PO Q6H PRN Indigestion #0 06/09/24 08/13/24 Rx tabs clopidogrel 75 mg tablet 75 mg PO DAILY #30 tabs 06/09/24 08/13/24 Rx docusate sodium 100 mg capsule 100 mg PO Q12HR #10 caps 06/09/24 08/13/24 Rx insulin glargine 100 unit/mL (3 32 unit (0.32 mL) subcut QAM #3 mL 06/09/24 08/13/24 Rx mL) subcutaneous pen (Lantus Solostar U-100 Insulin) metoprolol tartrate 25 mg tablet 25 mg PO BID #60 tabs 06/09/24 08/13/24 Rx pantoprazole 40 mg tablet,delayed 40 mg PO Q12HR #60 tabs 06/09/24 08/13/24 Rx release polyethylene glycol 3350 17 gram 17 g PO QAM PRN Constipation #0 ea 06/09/24 08/13/24 Rx oral powder packet (Miralax) ranolazine 500 mg tablet,extended 500 mg PO BID #60 tabs 06/09/24 08/13/24 Rx release,12 hr acetaminophen 325 mg tablet 650 mg PO Q6H PRN Pain (Scale 08/13/24 08/13/24 H
[2024-08-13 05:31] LABS: Chloride 81 mmol/L (98-107); Sodium 126 mmol/L (137-145)
[2024-08-13 05:40] LABS: Blood Urea Nitrogen 20 mg/dL (9-20); Calcium 8.9 mg/dL (8.4-10.2); Carbon Dioxide > 40 mmol/L (22-30); Estimated CRCL calculation 45 ml/min; Estimated Glomerular Filt Rate 52; Glucose 156 mg/dL (65-110); Lipase 33 U/L (23-300); Magnesium 1.7 mg/dL (1.6-2.3)
[2024-08-13 05:41] LABS: Lactic Acid Reflex 0.9 mmol/L (0.7-2.0)
[2024-08-13 08:14] LABS: Glucose Point of Care 131 mg/dl (65-105)
[2024-08-13] MEDS: CLOPIDOGREL BISULFATE 75 MG TABLET PO (09:03)
[2024-08-13] MEDS: SIMVASTATIN 20 MG TABLET 80 MG PO (09:03)
[2024-08-13] MEDS: PANTOPRAZOLE 40 MG TABLET PO ×2 (09:03→21:16)
[2024-08-13] MEDS: DOCUSATE SODIUM 100 MG CAPSULE PO ×2 (09:03→21:16)
[2024-08-13] MEDS: ASPIRIN 81 MG CHEWABLE TABLET PO (09:03)
[2024-08-13] MEDS: RANOLAZINE 500 MG TAB.ER.12H PO ×2 (09:08→21:17)
[2024-08-13] MEDS: METOCLOPRAMIDE HCL INJ 10 MG/2 ML VIAL 5 MG IV PUSH (09:13)
[2024-08-13] MEDS: INSULIN GLARGINE (*BKC) 100 UNITS/ML 32 UNITS SUB-Q (09:14)
--- NOTE | 2024-08-13 10:05 | PCSTNOTE ---
Please refer to the Bedside Swallow Evaluation in the EMR. Please note, silent aspiration cannot be ruled out at bedside.
[2024-08-13 11:47] LABS: Glucose Point of Care 160 mg/dl (65-105)
--- NOTE | 2024-08-13 12:05 | PM.IMPN ---
Progress Note: A&P Assessment and Plan (1) Syncope: Code(s): R55 - Syncope and collapse Status: Acute Assessment and Plan: Check orthostatics q shift. PT/OT. NS @ 100ml/hr. Monitor labs. (2) Nausea & vomiting: Code(s): R11.2 - Nausea with vomiting, unspecified Status: Acute Assessment and Plan: Reglan for nausea. Eat small meals. 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 He has pulmonary fibrosis. He has yet to establish with a pad hand. (4) Lactic acidosis: Code(s): E87.20 - Acidosis, unspecified Status: Acute Assessment and Plan: Improved. Lactic acid 0.9. (5) Acute hyponatremia: Code(s): E87.1 - Hypo-osmolality and hyponatremia Status: Acute Assessment and Plan: Sodium 126. Continue normal saline 100 ml/hr. Check orthostatics q shift. Plan Mr. Redmond is a pleasant 84-year-old male who is a fair historian with past medical history CAD status post CABG, CKD, insulin-dependent diabetes mellitus, hypertension, pulmonary fibrosis, chronic respiratory failure on 2 L nasal cannula, chronic hyponatremia history of partial sigmoid colon resection secondary to diverticulitis, history of dysphagia status post EGD on 05/24 demonstrating normal EGD to depth of insertion, empiric dilation performed. Patient lives with . He has been in his usual and reports no illness recently. He reports he was on the toilet for some time and when he got up he felt weak and fainted and fell to the floor. [place] ER evaluation demonstrated a stable male with temperature 97.6?, pulse rate 97, respiratory rate 18, 92% O2 saturation on 2 L nasal cannula, blood pressure 75/51, coming up to 132/66 status post fluid resuscitation. Hemoglobin 12.2, WBC 8.5. Sodium 126 baseline 130-134, anion gap 13, bicarb 36, chloride 77, serum creatinine 1.5 which is around his baseline, BUN 20, lactic acid 6.3 coming on to 2.3 status post fluids. BNP 990 urinalysis and quad viral screen unremarkable. Patient received 1.5 cc sodium chloride fluid resuscitation. Head CT with no intracranial findings. Chest x-ray with fibrotic changes at the lung bases. Abdomen pelvis CT reported by ER physician without acute abnormality: Findings: Scans through the lung bases demonstrates severe bibasilar chronic interstitial disease with extensive interstitial thickening and honeycomb formation.. The liver, spleen, pancreas, adrenals and kidneys are within normal limits. Small calcified gallstones noted. No evidence of aortic aneurysm. No lymphadenopathy. No bowel obstruction or bowel wall thickening. Rectosigmoid anastomosis noted. Images through the pelvis were performed. Urinary bladder unremarkable. No pelvic mass seen. No ascites. Small fat-containing left inguinal hernia noted. Impression: No acute abnormality evident. Severe bibasilar chronic interstitial pulmonary disease. Cholelithiasis. Small fat-containing left inguinal hernia. Patient's syncope is likely due to dehydration and/or vasovagal response. He currently is at his baseline and reports feeling well. He has received 1.5 L normal saline bolus in the ER. Continue with 100 cc/hour. According to ER physician the patient was complaining of nausea and vomiting although in bed 261 patient denied that. He is a fair historian only. Check orthostatics. Continue telemetry for now. Hold home Lasix. Otherwise, continue was aspirin Plavix docusate glargine metoprolol pantoprazole ranolazine simvastatin. Lactic acidosis has come down greatly from 6.3-2.3-0.9. status post 1.5 L. Sodium is 126 his usual is 130-134. This is likely due to hypovolemia. He is currently on his baseline of 2 L. He has pulmonary fibrosis. He has yet to
[2024-08-13 16:17] LABS: Glucose Point of Care 205 mg/dl (65-105)
[2024-08-13] MEDS: INSULIN ASPART (*BKC) 100 UNITS/ML SUB-Q ×2 (17:15→21:35)
[2024-08-13] MEDS: ALPRAZolam (*CRX) 0.25 MG TABLET PO (21:16)
[2024-08-13 22:01] LABS: Glucose Point of Care 222 mg/dl (65-105)
[2024-08-14] VITALS (16 sets, daily range): BP systolic 85–168; BP diastolic 58–90; PULSE 77–121; RESP 16–32; TEMP 36.4–36.5; O2SAT 98–100
[2024-08-14 05:39] LABS: Basophils Percent Auto 0.5 % (0.2-1.2); Eosinophils Absolute Auto 0.1 K/mm3 (0-0.3); Eosinophils Percent Auto 1.6 % (0-4.4); Hematocrit 34.5 % (42.0-52.0); Hemoglobin 11.1 g/dL (14.0-18.0); Immature Granulocyte Absolute 0.02 K/mm3 (0.00-0.031); Immature Granulocyte Percent A 0.3 % (0-0.5); Lymphocytes Absolute Auto 0.73 K/mm3 (0.9-3.2); Lymphocytes Percent Auto 11.8 % (18.3-44.2); Mean Corpuscular HGB Conc 32.2 g/dl (32-36); Mean Corpuscular Hemoglobin 30.2 pg (26-34); Mean Platelet Volume 8.7 fl (7.4-10.4); Monocytes Absolute Auto 0.6 K/mm3 (0.1-0.6); Monocytes Percent Auto 9.7 % (2.6-8.5); Neutrophils Absolute Auto 4.7 K/mm3 (1.3-6.7); Neutrophils Percent Auto 76.1 % (45.5-73.1); Platelet Count Result 160 k/mm3 (150-375); Red Blood Count 3.67 M/mm3 (4.6-6.20); Red Cell Distribution Width 12.6 % (11.5-14.5); White Blood Count 6.2 K/mm3 (4.5-10.0)
[2024-08-14 06:06] LABS: Alanine Aminotransferase 16 U/L (6-50); Albumin Level 3.6 g/dL (3.5-5.1); Alkaline Phosphatase 136 U/L (38-126); Anion Gap 4 mmol/L (4-12); Aspartate Amino Transferase 42 U/L (17-59); Bilirubin,Total 0.3 mg/dL (0.2-1.3); Blood Urea Nitrogen 17 mg/dL (9-20); Calcium 8.7 mg/dL (8.4-10.2); Carbon Dioxide 39 mmol/L (22-30); Chloride 87 mmol/L (98-107); Estimated CRCL calculation 48 ml/min; Estimated Glomerular Filt Rate 57; Glucose 102 mg/dL (65-110); Magnesium 1.7 mg/dL (1.6-2.3); Potassium 4.2 mmol/L (3.4-5.0); Sodium 130 mmol/L (137-145)
[2024-08-14 06:09] LABS: Lactic Acid Reflex 0.8 mmol/L (0.7-2.0)
[2024-08-14 08:29] LABS: Glucose Point of Care 64 mg/dl (65-105)
[2024-08-14] MEDS: GLUCOSE ORAL GEL 15 GM OF GLUCSE IN 37.5 GM TUBE PO (09:05)
[2024-08-14] MEDS: SODIUM CHLORIDE 0.9% IV 1,000 ML 100 ML IV CONT ×2 (09:06→19:58)
[2024-08-14] MEDS: CLOPIDOGREL BISULFATE 75 MG TABLET PO (09:47)
[2024-08-14] MEDS: RANOLAZINE 500 MG TAB.ER.12H PO ×2 (09:47→19:59)
[2024-08-14] MEDS: ASPIRIN 81 MG CHEWABLE TABLET PO (09:47)
[2024-08-14] MEDS: SIMVASTATIN 20 MG TABLET 80 MG PO (09:47)
[2024-08-14] MEDS: PANTOPRAZOLE 40 MG TABLET PO ×2 (09:47→19:59)
[2024-08-14] MEDS: DOCUSATE SODIUM 100 MG CAPSULE PO ×2 (09:48→19:59)
[2024-08-14 10:05] LABS: Glucose Point of Care 66 mg/dl (65-105)
[2024-08-14 10:05] LABS: Glucose Point of Care 83 mg/dl (65-105)
[2024-08-14 10:05] LABS: Glucose Point of Care 61 mg/dl (65-105)
[2024-08-14 10:30] LABS: Hemoglobin A1C 7.8 % (<5.7)
--- NOTE | 2024-08-14 11:53 | PM.IMPN ---
Progress Note: A&P Assessment and Plan (1) Syncope: Code(s): R55 - Syncope and collapse Status: Acute Assessment and Plan: -Check orthostatics q shift. supine BP 146/58 HR 89, sitting BP 132/58 HR 103, and standing BP 85/60 HR 121. -Add Midodrine 2.5 mg PO TID. Hold for normal blood pressure. -PT/OT. -NS @ 100ml/hr. -Monitor labs. (2) Nausea & vomiting: Code(s): R11.2 - Nausea with vomiting, unspecified Status: Acute Assessment and Plan: -Reglan for nausea. -Eat small meals. 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 He has pulmonary fibrosis. 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 (4) Lactic acidosis: Code(s): E87.20 - Acidosis, unspecified Status: Acute Assessment and Plan: -Improved. Lactic acid 0.9. (5) Acute hyponatremia: Code(s): E87.1 - Hypo-osmolality and hyponatremia Status: Acute Assessment and Plan: -Sodium 130. Continue normal saline 100 ml/hr. -Check orthostatics q shift. (6) Hypoglycemia associated with diabetes: Code(s): E11.649 - Type 2 diabetes mellitus with hypoglycemia without coma Status: Acute Assessment and Plan: -Low blood sugar this AM of 64. Patient ate and went down to 61. Patient given glucagon. Blood sugar improved to 80's. Last blood sugar 135. -HgbA1C 7.8%. Hold lantus today. Plan Mr. Redmond is a pleasant 84-year-old male who is a fair historian with past medical history CAD status post CABG, CKD, insulin-dependent diabetes mellitus, hypertension, pulmonary fibrosis, chronic respiratory failure on 2 L nasal cannula, chronic hyponatremia history of partial sigmoid colon resection secondary to diverticulitis, history of dysphagia status post EGD on 05/24 demonstrating normal EGD to depth of insertion, empiric dilation performed. Patient lives with . He has been in his usual and reports no illness recently. He reports he was on the toilet for some time and when he got up he felt weak and fainted and fell to the floor. [place] ER evaluation demonstrated a stable male with temperature 97.6?, pulse rate 97, respiratory rate 18, 92% O2 saturation on 2 L nasal cannula, blood pressure 75/51, coming up to 132/66 status post fluid resuscitation. Hemoglobin 12.2, WBC 8.5. Sodium 126 baseline 130-134, anion gap 13, bicarb 36, chloride 77, serum creatinine 1.5 which is around his baseline, BUN 20, lactic acid 6.3 coming on to 2.3 status post fluids. BNP 990 urinalysis and quad viral screen unremarkable. Patient received 1.5 cc sodium chloride fluid resuscitation. Head CT with no intracranial findings. Chest x-ray with fibrotic changes at the lung bases. Abdomen pelvis CT reported by ER physician without acute abnormality: Findings: Scans through the lung bases demonstrates severe bibasilar chronic interstitial disease with extensive interstitial thickening and honeycomb formation.. The liver, spleen, pancreas, adrenals and kidneys are within normal limits. Small calcified gallstones noted. No evidence of aortic aneurysm. No lymphadenopathy. No bowel obstruction or bowel wall thickening. Rectosigmoid anastomosis noted. Images through the pelvis were performed. Urinary bladder unremarkable. No pelvic mass seen. No ascites. Small fat-containing left inguinal hernia noted. Impression: No acute abnormality evident. Severe bibasilar chronic interstitial pulmonary disease. Cholelithiasis. Small fat-containing left inguinal hernia. Patient's syncope is likely due to dehydration and/or vasovagal response. He currently is at his baseline and reports feeling well. He has received 1.5 L normal saline bolus in the ER. Continue with 100 cc/hour. According to ER physician the patient was complainin
[2024-08-14 12:12] LABS: Glucose Point of Care 135 mg/dl (65-105)
[2024-08-14] MEDS: MIDODRINE HCL 2.5 MG TABLET PO (13:24)
--- NOTE | 2024-08-14 14:04 | PC.NURSE ---
On 08/14/24, the student, [Yarely Arana], provided care and completed [facility] documentation on this patient. I have reviewed the student's documentation and agree with the findings.
--- NOTE | 2024-08-14 14:57 | PC.NURSE ---
On 08/14/24, the student, [Yarely Arana], provided care and completed [facility] documentation on this patient. I have reviewed the student's documentation and agree with the findings.
[2024-08-14] MEDS: METOPROLOL TARTRATE 25 MG TABLET PO (15:37)
[2024-08-14] MEDS: polyethylene glycoL 3350 17 GM POWD.PACK PO (16:48)
[2024-08-14 17:09] LABS: Glucose Point of Care 190 mg/dl (65-105)
[2024-08-14 19:58] LABS: Glucose Point of Care 221 mg/dl (65-105)
[2024-08-14] MEDS: ALPRAZolam (*CRX) 0.25 MG TABLET PO (19:59)
[2024-08-14] MEDS: INSULIN ASPART (*BKC) 100 UNITS/ML SUB-Q (20:00)
[2024-08-15] VITALS (16 sets, daily range): BP systolic 81–180; BP diastolic 58–84; PULSE 78–111; RESP 12–16; TEMP 36.3–36.8; O2SAT 90–99
--- NOTE | 2024-08-15 | ECHO_ITS ---
Patient Info Name: Reshma Redmond Age: 84 years : 1940 Gender: Male Ht: 76 in Wt: 195 lbs BSA: 2.18 m2 HR: 111 bpm BP: 81 / 64 mmHg Technical Quality: Fair Exam Date: 08/15/2024 4:13 PM Exam Location: Echo Lab Patient Status: Inpatient Admit Date: 08/14/2024 Staff Ordering Physician: Tia Rucker APRN Crew Truck Driver: Althea Belcher RDCS Attending Provider: Lacy Sharpe MD Referring Physician: Chaim GARCIA; Exam Type: CA echo doppler color flow Study Info Indications R55 - Syncope and collapse Complete two-dimensional, color flow and Doppler transthoracic echocardiogram is performed. Summary 1. Left ventricular chamber dimension is normal. 2. Left ventricular systolic function is normal, estimated at 50-55%. 3. There is mildly increased left ventricular wall thickness. 4. Right ventricular systolic function is normal. 5. There is moderate aortic valve calcification. 6. There is moderate aortic valve stenosis with a peak velocity of 267 cm/s, mean gradient of 16 mmHg, and aortic valve area of 1.4 cm2. 7. There is mild aortic valve regurgitation. 8. There is moderate mitral valve regurgitation. 9. There is mild tricuspid valve regurgitation. Left Ventricle Left ventricular chamber dimension is normal. Left ventricular systolic function is normal, estimated at 50-55%. There is mildly increased left ventricular wall thickness. The left ventricular diastolic function is abnormal. Right Ventricle Right ventricular chamber dimension is normal. Right ventricular systolic function is normal. Left Atria Left atrial chamber dimension is normal. Right Atria Right atrial chamber dimension is normal. Atrial Septum Intact interatrial septum visualized by color flow imaging. Aortic Valve The aortic valve is not well visualized. There is moderate aortic valve stenosis with a peak velocity of 267 cm/s, mean gradient of 16 mmHg, and aortic valve area of 1.4 cm2. There is mild aortic valve regurgitation. There is moderate aortic valve calcification. Pulmonic Valve The pulmonic valve is not well visualized. Mitral Valve There is moderate mitral valve regurgitation. The mitral valve annulus is mildly calcified. Tricuspid Valve There is mild tricuspid valve regurgitation. Pericardium/Pleural There is no pericardial effusion. Inferior Vena Cava Inferior vena cava is not well visualized. Aorta The aortic root size at the sinus of Valsalva is normal. Left Ventricular Outflow Tract Name Value Normal LVOT 2D LVOT Diameter 1.9 cm LVOT Doppler LVOT Peak Gradient 6 mmHg LVOT Mean Gradient 3 mmHg LVOT VTI 22 cm LVOT VTI/AV VTI Ratio 0.5 LVOT Stroke Volume 63 ml LVOT CO 5.0 l/min LVOT CI 2.3 l/min/m2 Pulmonic Valve Name Value Normal PV Doppler
[2024-08-15] MEDS: SODIUM CHLORIDE 0.9% IV 1,000 ML 100 ML IV CONT ×2 (05:31→16:30)
[2024-08-15 06:38] LABS: Basophils Percent Auto 0.3 % (0.2-1.2); Eosinophils Absolute Auto 0.2 K/mm3 (0-0.3); Eosinophils Percent Auto 3.3 % (0-4.4); Hematocrit 32.9 % (42.0-52.0); Hemoglobin 10.3 g/dL (14.0-18.0); Immature Granulocyte Absolute 0.03 K/mm3 (0.00-0.031); Immature Granulocyte Percent A 0.5 % (0-0.5); Lymphocytes Absolute Auto 0.97 K/mm3 (0.9-3.2); Lymphocytes Percent Auto 16.1 % (18.3-44.2); Mean Corpuscular HGB Conc 31.3 g/dl (32-36); Mean Corpuscular Hemoglobin 30.1 pg (26-34); Mean Corpuscular Volume 96.2 fl (80-100); Mean Platelet Volume 9.2 fl (7.4-10.4); Monocytes Absolute Auto 0.5 K/mm3 (0.1-0.6); Monocytes Percent Auto 8.1 % (2.6-8.5); Neutrophils Absolute Auto 4.3 K/mm3 (1.3-6.7); Neutrophils Percent Auto 71.7 % (45.5-73.1); Platelet Count Result 161 k/mm3 (150-375); Red Blood Count 3.42 M/mm3 (4.6-6.20); Red Cell Distribution Width 12.8 % (11.5-14.5)
[2024-08-15 06:49] LABS: Alanine Aminotransferase 17 U/L (6-50); Albumin Level 3.5 g/dL (3.5-5.1); Alkaline Phosphatase 144 U/L (38-126); Anion Gap 8 mmol/L (4-12); Aspartate Amino Transferase 36 U/L (17-59); Bilirubin,Total 0.4 mg/dL (0.2-1.3); Blood Urea Nitrogen 16 mg/dL (9-20); Calcium 8.3 mg/dL (8.4-10.2); Carbon Dioxide 34 mmol/L (22-30); Chloride 87 mmol/L (98-107); Estimated CRCL calculation 58 ml/min; Estimated Glomerular Filt Rate > 60; Glucose 154 mg/dL (65-110); Magnesium 1.7 mg/dL (1.6-2.3); Potassium 4.3 mmol/L (3.4-5.0); Sodium 129 mmol/L (137-145)
[2024-08-15 08:28] LABS: Glucose Point of Care 126 mg/dl (65-105)
[2024-08-15] MEDS: polyethylene glycoL 3350 17 GM POWD.PACK PO (09:05)
[2024-08-15] MEDS: DOCUSATE SODIUM 100 MG CAPSULE PO ×2 (09:05→20:34)
[2024-08-15] MEDS: INSULIN GLARGINE (*BKC) 100 UNITS/ML 32 UNITS SUB-Q (09:05)
[2024-08-15] MEDS: ASPIRIN 81 MG CHEWABLE TABLET PO (09:05)
[2024-08-15] MEDS: METOPROLOL TARTRATE 25 MG TABLET PO ×2 (09:05→20:40)
[2024-08-15] MEDS: RANOLAZINE 500 MG TAB.ER.12H PO ×2 (09:05→20:34)
[2024-08-15] MEDS: MIDODRINE HCL 2.5 MG TABLET PO ×3 (09:05→17:53)
[2024-08-15] MEDS: SIMVASTATIN 20 MG TABLET 80 MG PO (09:05)
[2024-08-15] MEDS: CLOPIDOGREL BISULFATE 75 MG TABLET PO (09:05)
[2024-08-15] MEDS: PANTOPRAZOLE 40 MG TABLET PO ×2 (09:05→20:34)
--- NOTE | 2024-08-15 10:52 | PM.IMPN ---
Progress Note: A&P Assessment and Plan (1) Syncope: Code(s): R55 - Syncope and collapse Status: Acute Assessment and Plan: -Check orthostatics q shift. supine BP 167/83 HR 94, sitting BP 129/58 HR 99, and standing BP 81/64 HR 111. -Midodrine 2.5 mg PO TID. Hold for normal blood pressure. -PT/OT. -NS @ 100ml/hr. -Ordered Carotid dopplers and 2 D echocardiogram. Carotid dopplers showed: IMPRESSION: 1. <50% stenosis in the right internal carotid artery. 2. <50% stenosis in the left internal carotid artery. -Monitor labs. (2) Nausea & vomiting: Code(s): R11.2 - Nausea with vomiting, unspecified Status: Acute Assessment and Plan: -Reglan for nausea. -Eat small meals. 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 -He has pulmonary fibrosis. He has yet to establish with a kicking machine operator. (4) Lactic acidosis: Code(s): E87.20 - Acidosis, unspecified Status: Acute Assessment and Plan: -Improved. Lactic acid 0.9. (5) Acute hyponatremia: Code(s): E87.1 - Hypo-osmolality and hyponatremia Status: Acute Assessment and Plan: -Sodium 129. Continue normal saline 100 ml/hr. -Check orthostatics q shift. (6) Hypoglycemia associated with diabetes: Code(s): E11.649 - Type 2 diabetes mellitus with hypoglycemia without coma Status: Acute Assessment and Plan: -AM blood sugar 126. -HgbA1C 7.8%. (7) Constipation: Code(s): K59.00 - Constipation, unspecified Status: Acute Assessment and Plan: -Add fleets enema daily PRN. -Encourage hydration. Plan Mr. Redmond is a pleasant 84-year-old male who is a fair historian with past medical history CAD status post CABG, CKD, insulin-dependent diabetes mellitus, hypertension, pulmonary fibrosis, chronic respiratory failure on 2 L nasal cannula, chronic hyponatremia history of partial sigmoid colon resection secondary to diverticulitis, history of dysphagia status post EGD on 05/24 demonstrating normal EGD to depth of insertion, empiric dilation performed. Patient lives with . He has been in his usual and reports no illness recently. He reports he was on the toilet for some time and when he got up he felt weak and fainted and fell to the floor. [place] ER evaluation demonstrated a stable male with temperature 97.6?, pulse rate 97, respiratory rate 18, 92% O2 saturation on 2 L nasal cannula, blood pressure 75/51, coming up to 132/66 status post fluid resuscitation. Hemoglobin 12.2, WBC 8.5. Sodium 126 baseline 130-134, anion gap 13, bicarb 36, chloride 77, serum creatinine 1.5 which is around his baseline, BUN 20, lactic acid 6.3 coming on to 2.3 status post fluids. BNP 990 urinalysis and quad viral screen unremarkable. Patient received 1.5 cc sodium chloride fluid resuscitation. Head CT with no intracranial findings. Chest x-ray with fibrotic changes at the lung bases. Abdomen pelvis CT reported by ER physician without acute abnormality: Findings: Scans through the lung bases demonstrates severe bibasilar chronic interstitial disease with extensive interstitial thickening and honeycomb formation.. The liver, spleen, pancreas, adrenals and kidneys are within normal limits. Small calcified gallstones noted. No evidence of aortic aneurysm. No lymphadenopathy. No bowel obstruction or bowel wall thickening. Rectosigmoid anastomosis noted. Images through the pelvis were performed. Urinary bladder unremarkable. No pelvic mass seen. No ascites. Small fat-containing left inguinal hernia noted. Impression: No acute abnormality evident. Severe bibasilar chronic interstitial pulmonary disease. Cholelithiasis. Small fat-containing left inguinal hernia. Patient's syncope is likely due
[2024-08-15 12:06] LABS: Glucose Point of Care 143 mg/dl (65-105)
[2024-08-15 17:22] LABS: Glucose Point of Care 197 mg/dl (65-105)
[2024-08-15] MEDS: METOCLOPRAMIDE HCL INJ 10 MG/2 ML VIAL 5 MG IV PUSH (20:29)
[2024-08-15] MEDS: ALPRAZolam (*CRX) 0.25 MG TABLET PO (20:34)
[2024-08-15] MEDS: INSULIN ASPART (*BKC) 100 UNITS/ML SUB-Q (20:38)
[2024-08-15 20:59] LABS: Glucose Point of Care 232 mg/dl (65-105)
[2024-08-16] VITALS (16 sets, daily range): BP systolic 108–166; BP diastolic 53–86; PULSE 75–118; RESP 16–18; TEMP 36.3–36.8; O2SAT 90–98
[2024-08-16] MEDS: SODIUM CHLORIDE 0.9% IV 1,000 ML 100 ML IV CONT ×3 (01:31→20:48)
[2024-08-16 06:16] LABS: Basophils Percent Auto 0.4 % (0.2-1.2); Eosinophils Absolute Auto 0.1 K/mm3 (0-0.3); Eosinophils Percent Auto 1.9 % (0-4.4); Hematocrit 33.4 % (42.0-52.0); Hemoglobin 10.8 g/dL (14.0-18.0); Immature Granulocyte Absolute 0.03 K/mm3 (0.00-0.031); Immature Granulocyte Percent A 0.4 % (0-0.5); Lymphocytes Absolute Auto 1.18 K/mm3 (0.9-3.2); Lymphocytes Percent Auto 16.3 % (18.3-44.2); Mean Corpuscular HGB Conc 32.3 g/dl (32-36); Mean Corpuscular Hemoglobin 30.8 pg (26-34); Mean Corpuscular Volume 95.2 fl (80-100); Monocytes Absolute Auto 0.6 K/mm3 (0.1-0.6); Monocytes Percent Auto 8.3 % (2.6-8.5); Neutrophils Absolute Auto 5.3 K/mm3 (1.3-6.7); Neutrophils Percent Auto 72.7 % (45.5-73.1); Platelet Count Result 180 k/mm3 (150-375); Red Blood Count 3.51 M/mm3 (4.6-6.20); Red Cell Distribution Width 12.9 % (11.5-14.5); White Blood Count 7.3 K/mm3 (4.5-10.0)
[2024-08-16 06:22] LABS: Alanine Aminotransferase 17 U/L (6-50); Albumin Level 3.5 g/dL (3.5-5.1); Alkaline Phosphatase 139 U/L (38-126); Anion Gap 4 mmol/L (4-12); Aspartate Amino Transferase 32 U/L (17-59); Bilirubin,Total 0.3 mg/dL (0.2-1.3); Blood Urea Nitrogen 17 mg/dL (9-20); Calcium 8.3 mg/dL (8.4-10.2); Carbon Dioxide 33 mmol/L (22-30); Chloride 91 mmol/L (98-107); Estimated CRCL calculation 63 ml/min; Estimated Glomerular Filt Rate > 60; Glucose 152 mg/dL (65-110); Potassium 4.3 mmol/L (3.4-5.0); Sodium 128 mmol/L (137-145)
[2024-08-16 08:23] LABS: Glucose Point of Care 124 mg/dl (65-105)
[2024-08-16] MEDS: SIMVASTATIN 20 MG TABLET 80 MG PO (08:31)
[2024-08-16] MEDS: RANOLAZINE 500 MG TAB.ER.12H PO ×2 (08:31→20:44)
[2024-08-16] MEDS: METOPROLOL TARTRATE 25 MG TABLET PO (08:31)
[2024-08-16] MEDS: CLOPIDOGREL BISULFATE 75 MG TABLET PO (08:31)
[2024-08-16] MEDS: ASPIRIN 81 MG CHEWABLE TABLET PO (08:31)
[2024-08-16] MEDS: polyethylene glycoL 3350 17 GM POWD.PACK PO (08:31)
[2024-08-16] MEDS: MIDODRINE HCL 2.5 MG TABLET PO ×3 (08:31→16:34)
[2024-08-16] MEDS: DOCUSATE SODIUM 100 MG CAPSULE PO ×2 (08:31→20:43)
[2024-08-16] MEDS: PANTOPRAZOLE 40 MG TABLET PO ×2 (08:31→20:44)
[2024-08-16] MEDS: INSULIN GLARGINE (*BKC) 100 UNITS/ML 32 UNITS SUB-Q (08:33)
[2024-08-16 11:41] LABS: Glucose Point of Care 136 mg/dl (65-105)
--- NOTE | 2024-08-16 14:23 | PM.CNCAR ---
Assessment and Plan Assessment and plan (1) Syncope: Code(s): R55 - Syncope and collapse Status: Acute Assessment and Plan: Secondary to orthostatic hypotension. No arrhythmias, blocks, or pauses seen on telemetry or EKG. Continue with IV fluids. He takes metoprolol which should be stopped but for now I am going to decrease the dose and recommend to wean off in order to avoid rebound tachycardia and hypertension. MIKE hose. Can use abdominal binder as well. Echo shows normal LV function with moderate aortic stenosis. Outpatient follow up. Cardiology will sign off please call with questions. History of Present Illness History of Present Illness Consult date/time: 08/16/24 14:23 Requesting physician: Tia Rucker APRN Consult reason: hypotension Reason For Visit: Syncope, Nausea vomiting, Dehydration Narrative: This is an 84 year old male with CAD s/p CABG, insulin-dependent diabetes mellitus, hypertension, and pulmonary fibrosis. He is hospitalized because of multiple syncopal events. He has been having episodes of dizziness and syncope when transitioning from sitting to standing or lying to standing positions. He does report losing consciousness with these events and his reports with the most recent episode he was out for 30 minutes. His orthostatic blood pressure is positive. No further syncopal events while in the hospital. He denies any chest pain, palpitations. No complaints at the time of my visit with him. Review of Systems Review of Systems: All systems reviewed & are unremarkable except as noted in HPI and below PMFSH Past Medical History Medical History Diabetes mellitus Esophageal abnormality sp gastritis-required dilation Hypertension Pulmonary fibrosis desaturations noted, currently on 2 Liters oxygen at rest Surgical History Surgical History Hx of CABG Family History Family History (Updated 08/13/24 @ 02:38 by Jena Grayson RN) Father Prostate carcinoma Mother Diabetes mellitus Sibling Colon cancer Social History Social History Smoking status: Never smoker Alcohol intake: never Substance use: never Substance use type: does not use Do You Feel Safe in your Home?: Yes Lack of Transportation: No Lack of Food: Never True Current Housing: I Have Housing Concerned About Future Housing: No Difficulty Paying Gas/Electric Bills: No Difficulty Paying for Meds: No Currently Unemployed: No Education: High School Diploma/GED Difficulty w/ Childcare or Family Care: No Spiritual care concerns: No Meds Home Medications and Allergies Home Medications Medication Instructions Recorded Confirmed Type alprazolam 0.25 mg tablet 0.25 mg PO HS #12 tabs 06/09/24 08/13/24 Rx aspirin 81 mg chewable tablet 81 mg PO DAILY #0 tabs 06/09/24 08/13/24 Rx (Children's Aspirin) calcium carbonate 200 mg PO Q6H PRN Indigestion #0 06/09/24 08/13/24 Rx tabs clopidogrel 75 mg tablet 75 mg PO DAILY #30 tabs 06/09/24 08/13/24 Rx docusate sodium 100 mg capsule 100 mg PO Q12HR #10 caps 06/09/24 08/13/24 Rx insulin glargine 100 unit/mL (3 32 unit (0.32 mL) subcut QAM #3 mL 06/09/24 08/13/24 Rx mL) subcutaneous pen (Lantus Solostar U-100 Insulin) metoprolol tartrate 25 mg tablet 25 mg PO BID #60 tabs 06/09/24 08/13/24 Rx pantoprazole 40 mg tablet,delayed 40 mg PO Q12HR #60 tabs 06/09/24 08/13/24 Rx release polyethylene glycol 3350 17 gram 17 g PO QAM PRN Constipation #0 ea 06/09/24 08/13/24 Rx oral powder packet (Miralax) ranolazine 500 mg tablet,extended 500 mg PO BID #60 tabs 06/09/24 08/13/24 Rx release,12 hr acetaminophen 325 mg tablet 650 mg PO Q6H PRN Pain (Scale 08/13/24 08/13/24 History Score 1-3) simvastatin 80 mg tablet 80 mg PO DAILY 0
--- NOTE | 2024-08-16 15:49 | PM.IMPN ---
Progress Note: A&P Assessment and Plan (1) Syncope: Code(s): R55 - Syncope and collapse Status: Acute Assessment and Plan: -Check orthostatics q shift. supine BP 154/71 HR 98, sitting BP 137/59 HR 98, and standing BP 108/61 HR 100. -Midodrine 2.5 mg PO TID. Hold for normal blood pressure. -PT/OT. -NS @ 100ml/hr. -Ordered Carotid dopplers and 2 D echocardiogram. Carotid dopplers showed: IMPRESSION: 1. <50% stenosis in the right internal carotid artery. 2. <50% stenosis in the left internal carotid artery. -Monitor labs. -Cardiology consulted. Recommended decreasing Metoprolol 12.5 mg q 12 and applying raghu hose. Can use abdominal binder as well. -Echo shows normal LV function with moderate aortic stenosis. Outpatient follow up with Cardiology. 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 -He has pulmonary fibrosis. 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 (3) Acute hyponatremia: Code(s): E87.1 - Hypo-osmolality and hyponatremia Status: Acute Assessment and Plan: -Sodium 128. Continue normal saline 100 ml/hr. -Check orthostatics q shift. (4) Hypoglycemia associated with diabetes: Code(s): E11.649 - Type 2 diabetes mellitus with hypoglycemia without coma Status: Acute Assessment and Plan: -AM blood sugar 152. -HgbA1C 7.8%. (5) Constipation: Code(s): K59.00 - Constipation, unspecified Status: Acute Assessment and Plan: -Fleets enema daily PRN. -Encourage hydration. Subjective Date/time seen: 08/16/24 15:49 Interval history: Patient denies chest pain, shortness of breath, or palpitations. Patient reports that his appetite is good. Patient reports that he has not gotten up because he gets too dizzy. Review of Systems Review of Systems: All systems reviewed & are unremarkable except as noted in HPI and below Gastrointestinal: Comments: BM 08/15/24 Exam Const: General: comfortable and no acute distress Neck: Neck: supple Resp: Effort & Inspection: normal respiratory effort Auscultation: clear to auscultation bilaterally Cardio: Rate: regular rate Rhythm: regular rhythm GI: GI Palp: Yes Soft to palpation Auscultation: normal bowel sounds Skin: General skin exam: normal color Extrem: General: normal to inspection Objective Data Vital Signs Vital Signs: Vital Signs - 24 hr 08/15/24 16:00 08/15/24 20:40 08/15/24 20:41 Temperature 97.8 F Pulse Rate 100 99 99 Respiratory Rate 16 Blood Pressure 154/84 H Pulse Oximetry 93 Oxygen Delivery Oxygen Flow Rate 08/15/24 20:35 08/15/24 20:41 08/15/24 20:00 Temperature Pulse Rate 99 102 H Respiratory Rate Blood Pressure 164/84 H 138/62 Pulse Oximetry 93 Oxygen Delivery Nasal Cannula Oxygen Flow Rate 2 08/15/24 20:00 08/16/24 00:00 08/16/24 04:00 Temperature Pulse Rate 81 75 77 Respiratory Rate Blood Pressure Pulse Oximetry Oxygen Delivery Oxygen Flow Rate 08/16/24 05:28 08/16/24 08:00 08/16/24 08:31 Temperature 97.7 F Pulse Rate 79 84 Respiratory Rate 16 Blood Pressure 129/63 Pulse Oximetry 94 97 Oxygen Delivery Nasal Cannula Oxygen Flow Rate 2 08/16/24 10:15 08/16/24 10:42 08/16/24 10:43 Temperature Pulse Rate 100 Respiratory Rate 16 Blood Pressure 154/71 H 137/59 L Pulse Oximetry 98 Oxygen Delivery Nasal Cannula Oxygen Flow Rate 2 08/16/24 10:43 08/16/24 08:00 08/16/24 08:20 Temperature Pulse Rate 80 Respiratory Rate Blood Pressure 108/61 Pulse Oximetry 97 Oxygen Delivery Nasal Cannula Oxygen Flow Rate 2 08/16/24 12:00 08/16/24 14:00 Temperature 98.2 F Pulse Rate 100 77 Respiratory Rate 18 Blood Pressure 141/53 H Pulse Oxim
[2024-08-16 16:47] LABS: Glucose Point of Care 193 mg/dl (65-105)
[2024-08-16] MEDS: METOPROLOL TARTRATE 12.5 MG TABLET PO (20:43)
[2024-08-16] MEDS: ALPRAZolam (*CRX) 0.25 MG TABLET PO (20:43)
[2024-08-16 22:22] LABS: Glucose Point of Care 227 mg/dl (65-105)
[2024-08-16] MEDS: INSULIN ASPART (*BKC) 100 UNITS/ML SUB-Q (22:54)
[2024-08-17] VITALS (21 sets, daily range): BP systolic 97–180; BP diastolic 44–92; PULSE 80–113; RESP 16–18; TEMP 36.6–36.8; O2SAT 93–100
[2024-08-17] MEDS: CALCIUM CARBONATE (TUMS) 500 MG (200 MG ELEMENTAL) PO (00:59)
[2024-08-17 05:33] LABS: Basophils Percent Auto 0.4 % (0.2-1.2); Eosinophils Absolute Auto 0.2 K/mm3 (0-0.3); Eosinophils Percent Auto 2.3 % (0-4.4); Hematocrit 32.7 % (42.0-52.0); Hemoglobin 10.6 g/dL (14.0-18.0); Immature Granulocyte Absolute 0.04 K/mm3 (0.00-0.031); Immature Granulocyte Percent A 0.5 % (0-0.5); Lymphocytes Absolute Auto 1.09 K/mm3 (0.9-3.2); Lymphocytes Percent Auto 13.1 % (18.3-44.2); Mean Corpuscular HGB Conc 32.4 g/dl (32-36); Mean Corpuscular Hemoglobin 30.8 pg (26-34); Mean Corpuscular Volume 95.1 fl (80-100); Mean Platelet Volume 9.1 fl (7.4-10.4); Monocytes Absolute Auto 0.7 K/mm3 (0.1-0.6); Monocytes Percent Auto 8.4 % (2.6-8.5); Neutrophils Absolute Auto 6.3 K/mm3 (1.3-6.7); Neutrophils Percent Auto 75.3 % (45.5-73.1); Platelet Count Result 187 k/mm3 (150-375); Red Blood Count 3.44 M/mm3 (4.6-6.20); Red Cell Distribution Width 12.9 % (11.5-14.5); White Blood Count 8.3 K/mm3 (4.5-10.0)
[2024-08-17 05:45] LABS: Alanine Aminotransferase 17 U/L (6-50); Albumin Level 3.2 g/dL (3.5-5.1); Alkaline Phosphatase 157 U/L (38-126); Anion Gap 5 mmol/L (4-12); Aspartate Amino Transferase 30 U/L (17-59); Bilirubin,Total 0.3 mg/dL (0.2-1.3); Blood Urea Nitrogen 16 mg/dL (9-20); Calcium 8.2 mg/dL (8.4-10.2); Carbon Dioxide 33 mmol/L (22-30); Chloride 93 mmol/L (98-107); Estimated CRCL calculation 58 ml/min; Estimated Glomerular Filt Rate > 60; Glucose 164 mg/dL (65-110); Potassium 4.1 mmol/L (3.4-5.0); Sodium 131 mmol/L (137-145)
[2024-08-17 08:24] LABS: Glucose Point of Care 143 mg/dl (65-105)
[2024-08-17] MEDS: SIMVASTATIN 20 MG TABLET 80 MG PO (09:54)
[2024-08-17] MEDS: METOPROLOL TARTRATE 12.5 MG TABLET PO (09:54)
[2024-08-17] MEDS: MIDODRINE HCL 2.5 MG TABLET PO (09:55)
[2024-08-17] MEDS: PANTOPRAZOLE 40 MG TABLET PO ×2 (09:55→21:24)
[2024-08-17] MEDS: ASPIRIN 81 MG CHEWABLE TABLET PO (09:55)
[2024-08-17] MEDS: RANOLAZINE 500 MG TAB.ER.12H PO ×2 (09:55→21:24)
[2024-08-17] MEDS: CLOPIDOGREL BISULFATE 75 MG TABLET PO (09:55)
[2024-08-17] MEDS: DOCUSATE SODIUM 100 MG CAPSULE PO ×2 (09:55→21:24)
[2024-08-17] MEDS: INSULIN GLARGINE (*BKC) 100 UNITS/ML 32 UNITS SUB-Q (09:56)
[2024-08-17] MEDS: METOCLOPRAMIDE HCL INJ 10 MG/2 ML VIAL 5 MG IV PUSH ×2 (09:59→17:45)
[2024-08-17] MEDS: SODIUM CHLORIDE 0.9% IV 1,000 ML 100 ML IV CONT (10:13)
--- NOTE | 2024-08-17 11:31 | PM.IMPN ---
Progress Note: A&P Assessment and Plan (1) Syncope: Code(s): R55 - Syncope and collapse Status: Acute Assessment and Plan: 08/17/24: Echo showing normal LV systolic function with moderate aortic stenosis, normal RV systolic function, pulmonary artery pressure was not obtained Cardiology was consulted however has signed off yesterday Will DC metoprolol today Continue midodrine at 5 mg p.o. t.i.d. 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 Currently on 2 L nasal cannula Patient is tachypneic with use of accessory muscles this morning Will go ahead and get a chest x-ray today DC IV fluids Consider IV Lasix (3) Acute hyponatremia: Code(s): E87.1 - Hypo-osmolality and hyponatremia Status: Acute Assessment and Plan: 08/17/24: Sodium level today is 131 Will discontinue normal saline Continue to check orthostatic blood pressures (4) Hypoglycemia associated with diabetes: Code(s): E11.649 - Type 2 diabetes mellitus with hypoglycemia without coma Status: Acute Assessment and Plan: 08/17/24: Blood sugars ranging 143-227 Hgb A1C 7.8 Accu checks AC/HS Low-dose SSI ordered Continue Lantus 32 units daily hypoglycemic protocol in place Diabetic diet ordered Subjective Date/time seen: 08/17/24 11:31 Interval history: Interval history: This is an 84-year-old male who presented to the hospital on 08/13/2024 after sustaining a ground level fall at home. Workup in the hospital included a chest x-ray which showed fibrotic changes in the lung basis, superimposed pneumonitis is not excluded. Head CT was negative for any acute intracranial findings. Abdomen/pelvis CT showed small fat containing left inguinal hernia. Carotid Doppler study shown less than 50% stenosis in bilateral internal carotid arteries. Initial labs revealed a normal white blood cell count of 8.5, RBC 3.94, hemoglobin 12.4, sodium 126, chloride 77, anion gap 13, creatinine 1.5, EGFR 44, lactic acid 6.3> 2.3> 0.9, mesial 1.8, proBNP 990, troponin 0.019, lipase 33. UA was obtained which showed a urine specific gravity of 1.045 otherwise negative. Respiratory panel was obtained and was negative for influenza a and B, RSV, COVID. EKG showed sinus rhythm with first-degree AV block with a rate of 96, QTC 481, right bundle branch block. Echocardiogram done on 08/15/2024 showed normal LV systolic function with an estimated EF of 50-55%, normal RV systolic function, moderate aortic valve stenosis and calcification, moderate mitral valve regurgitation, pulmonary artery pressure was not obtained on this scan. Cardiology was consulted. He was found to have orthostatic hypotension and was taken off of his metoprolol. He was started on midodrine. PT and OT ordered. Subjective: Patient denies any fever, chills, vomiting, diarrhea, abdominal pain, chest pain. He does appear to be short of breath and currently on his baseline oxygen of 2 L nasal cannula. He does report nausea however this is chronic for him. He does report he has had 1 bowel movement since he has been admitted. Labs and imaging were reviewed. Review of Systems Review of Systems: All systems reviewed & are unremarkable except as noted in HPI and below Constitutional: Constitutional: Reports as per HPI and Reports no additional constitutional complaints Eyes: Eyes: Reports as per HPI and Reports no additional eye complaints ENT: Reports system reviewed and no additional complaints, except as documented and Reports as per HPI Cardiovascular: Cardiovascular: Reports as per HPI and Reports no additional cardiovascular complaints Resp
[2024-08-17 11:59] LABS: Glucose Point of Care 172 mg/dl (65-105)
[2024-08-17 16:52] LABS: Glucose Point of Care 225 mg/dl (65-105)
[2024-08-17] MEDS: INSULIN ASPART (*BKC) 100 UNITS/ML SUB-Q ×2 (17:42→21:24)
[2024-08-17] MEDS: lisinopriL 5 MG TABLET PO (18:43)
--- NOTE | 2024-08-17 19:24 | PC.NURSE ---
08/17/24 18:45 Patient refusing to wear bilateral MIKE hose. Patient agreeable to wear MIKE hose on left foot but complains the MIKE hose causes pain in his right heel. Educated of the importance of wearing compression stockings. Patient still refused to wear right extremity compression stocking
[2024-08-17 21:16] LABS: Glucose Point of Care 234 mg/dl (65-105)
[2024-08-17] MEDS: ALPRAZolam (*CRX) 0.25 MG TABLET PO (21:24)
[2024-08-18] VITALS (11 sets, daily range): BP systolic 138–154; BP diastolic 54–61; PULSE 81–103; RESP 16–20; TEMP 36.3–36.6; O2SAT 95–100
[2024-08-18 08:11] LABS: Glucose Point of Care 100 mg/dl (65-105)
--- NOTE | 2024-08-18 08:20 | PM.DS ---
DS: Admitting Diagnosis Discharge Date 08/18/24 Admitting Diagnosis Syncope Nausea vomiting Pulmonary fibrosis Debilitated lactic acidosis Acute hyponatremia DS: Discharge Diagnosis Discharge Diagnosis (1) Syncope: Code(s): R55 - Syncope and collapse Status: Acute (2) Pulmonary fibrosis: Code(s): J84.10 - Pulmonary fibrosis, unspecified Status: Acute (3) Acute hyponatremia: Code(s): E87.1 - Hypo-osmolality and hyponatremia Status: Acute (4) Hypoglycemia associated with diabetes: Code(s): E11.649 - Type 2 diabetes mellitus with hypoglycemia without coma Status: Acute DS: Summary Hospital Course Reason for hospitalization: Syncope Nausea vomiting Pulmonary fibrosis Debilitated lactic acidosis Acute hyponatremia Hospital Course: This is an 84-year-old male who presented to the hospital on 08/13/2024 after sustaining a ground level fall at home. Workup in the hospital included a chest x-ray which showed fibrotic changes in the lung basis, superimposed pneumonitis is not excluded. Head CT was negative for any acute intracranial findings. Abdomen/pelvis CT showed small fat containing left inguinal hernia. Carotid Doppler study shown less than 50% stenosis in bilateral internal carotid arteries. Initial labs revealed a normal white blood cell count of 8.5, RBC 3.94, hemoglobin 12.4, sodium 126, chloride 77, anion gap 13, creatinine 1.5, EGFR 44, lactic acid 6.3> 2.3> 0.9, mesial 1.8, proBNP 990, troponin 0.019, lipase 33. UA was obtained which showed a urine specific gravity of 1.045 otherwise negative. Respiratory panel was obtained and was negative for influenza a and B, RSV, COVID. EKG showed sinus rhythm with first-degree AV block with a rate of 96, QTC 481, right bundle branch block. Echocardiogram done on 08/15/2024 showed normal LV systolic function with an estimated EF of 50-55%, normal RV systolic function, moderate aortic valve stenosis and calcification, moderate mitral valve regurgitation, pulmonary artery pressure was not obtained on this scan. Cardiology was consulted. He was found to have orthostatic hypotension and was taken off of his metoprolol. He was started on midodrine. PT and OT ordered. Patient was given 40 mg IV lasix today, lung sounds improved. Syncope was ruled out with echocardiogram as well any neurological component Cardiology recommended taking him off of the metoprolol as that was likely the source of his orthostatic hypotension and recent for falling. PT and OT are recommending correction facility for rehab needs and patient will be discharged today to [facility]. Patient is stable for discharge at this time. Diagnosis: Orthostatic hypotension, muscular deconditioning Status at Discharge Cognitive/behavioral status at discharge: Alert oriented x3 Functional status at discharge: uses cane/walker Overall status at discharge: patient is progressing back to baseline Time Spent with Patient Time attestation: Total time spent providing and/or coordinating discharge services: Time spent: Greater than 30 minutes Exam Narrative: General: In no acute distress, well nourished Cardiac: Normal S1 and S2. Murmur noted, no gallops or friction rubs, peripheral pulses intact. Respiratory: Crackles and rhonchi noted will anterior upper lobes, mild wheezing noted, currently on 2 L nasal cannula which is his baseline Gastrointestinal: soft, non-distended, non-tender, normoactive bowel sounds. : voiding without difficulty. Extremities: moves all extremities well, no edema Skin: clean, dry, intact. No wounds or lesions. Neuro: Alert and oriented x4, cranial nerves intact, no neuro deficits. Psych: normal mood, normal affect, interactive DS: Data Data Completed and Pending Completed studies during hospitalization: Chest x-ray x2 Head CT Abdomen pelvis CT Carotid Doppler study Pending studies at discharge: None Labs on day of dis
[2024-08-18 08:46] LABS: Basophils Percent Auto 0.4 % (0.2-1.2); Eosinophils Absolute Auto 0.2 K/mm3 (0-0.3); Eosinophils Percent Auto 3.2 % (0-4.4); Hemoglobin 10.4 g/dL (14.0-18.0); Immature Granulocyte Absolute 0.04 K/mm3 (0.00-0.031); Immature Granulocyte Percent A 0.6 % (0-0.5); Lymphocytes Absolute Auto 0.97 K/mm3 (0.9-3.2); Lymphocytes Percent Auto 13.7 % (18.3-44.2); Mean Corpuscular HGB Conc 31.5 g/dl (32-36); Mean Corpuscular Hemoglobin 30.1 pg (26-34); Mean Corpuscular Volume 95.7 fl (80-100); Mean Platelet Volume 8.8 fl (7.4-10.4); Monocytes Absolute Auto 0.8 K/mm3 (0.1-0.6); Neutrophils Percent Auto 71.1 % (45.5-73.1); Platelet Count Result 211 k/mm3 (150-375); Red Blood Count 3.45 M/mm3 (4.6-6.20); Red Cell Distribution Width 13.1 % (11.5-14.5); White Blood Count 7.1 K/mm3 (4.5-10.0)
[2024-08-18 09:06] LABS: Alanine Aminotransferase 16 U/L (6-50); Albumin Level 3.3 g/dL (3.5-5.1); Alkaline Phosphatase 119 U/L (38-126); Anion Gap 3 mmol/L (4-12); Aspartate Amino Transferase 29 U/L (17-59); Bilirubin,Total 0.4 mg/dL (0.2-1.3); Blood Urea Nitrogen 16 mg/dL (9-20); Calcium 8.6 mg/dL (8.4-10.2); Carbon Dioxide 36 mmol/L (22-30); Chloride 92 mmol/L (98-107); Estimated CRCL calculation 58 ml/min; Estimated Glomerular Filt Rate > 60; Glucose 95 mg/dL (65-110); Potassium 4.1 mmol/L (3.4-5.0); Sodium 131 mmol/L (137-145)
[2024-08-18] MEDS: lisinopriL 5 MG TABLET PO (10:21)
[2024-08-18] MEDS: ASPIRIN 81 MG CHEWABLE TABLET PO (10:21)
[2024-08-18] MEDS: RANOLAZINE 500 MG TAB.ER.12H PO (10:21)
[2024-08-18] MEDS: PANTOPRAZOLE 40 MG TABLET PO (10:21)
[2024-08-18] MEDS: SIMVASTATIN 20 MG TABLET 80 MG PO (10:21)
[2024-08-18] MEDS: DOCUSATE SODIUM 100 MG CAPSULE PO (10:21)
[2024-08-18] MEDS: CLOPIDOGREL BISULFATE 75 MG TABLET PO (10:21)
[2024-08-18] MEDS: INSULIN GLARGINE (*BKC) 100 UNITS/ML 32 UNITS SUB-Q (10:22)
[2024-08-18] MEDS: ACETAMINOPHEN 325 MG TABLET 650 MG PO (10:35)
[2024-08-18] MEDS: METOCLOPRAMIDE HCL INJ 10 MG/2 ML VIAL 5 MG IV PUSH (10:36)
[2024-08-18 12:07] LABS: Glucose Point of Care 125 mg/dl (65-105)
[2024-08-18] MEDS: FUROSEMIDE INJ 40 MG/4 ML VIAL IV PUSH (12:17)
[2024-08-18 13:13] LABS: SARS-CoV-2 RNA PCR Negative (Negative)
[2024-08-18] MEDS: INFLUENZA VACCINE HIGH DOSE (>64) 180 MCG/0.5 ML SYRINGE IM (13:30)
[2024-08-18 17:01] LABS: Glucose Point of Care 169 mg/dl (65-105)
[2024-08-18] MEDS: polyethylene glycoL 3350 17 GM POWD.PACK PO (17:57)
== END 2024-08-18 19:20 | DRG 312 ==
LOC: ANHED 08-13 01:27 → ANH2MED 08-13 01:59
PROVIDERS: Nurse Practitioner Acute Care; Nurse Practitioner Family; Admitting Provider General Practice; Emergency Provider Emergency Medicine; PCP Internal Medicine; Visit Provider Internal Medicine
DX: I95.1 Orthostatic hypotension (principal); E87.1 Hypo-osmolality and hyponatremia; J96.10 Chronic respiratory failure, unspecified whether with hypoxia or hypercapnia; E87.20 Acidosis, unspecified; J84.10 Pulmonary fibrosis, unspecified; N18.9 Chronic kidney disease, unspecified; I25.10 Atherosclerotic heart disease of native coronary artery without angina pectoris; I12.9 Hypertensive chronic kidney disease with stage 1 through stage 4 chronic kidney disease, or unspecified chronic kidney disease; E11.22 Type 2 diabetes mellitus with diabetic chronic kidney disease; E11.649 Type 2 diabetes mellitus with hypoglycemia without coma; E86.0 Dehydration; K59.00 Constipation, unspecified; R11.2 Nausea with vomiting, unspecified; R53.81 Other malaise; R13.10 Dysphagia, unspecified; Z20.822 Contact with and (suspected) exposure to COVID-19; Z11.52 Encounter for screening for COVID-19; Z99.81 Dependence on supplemental oxygen; Z95.1 Presence of aortocoronary bypass graft; Z23 Encounter for immunization; Z79.4 Long term (current) use of insulin; Z79.82 Long term (current) use of aspirin; Z79.02 Long term (current) use of antithrombotics/antiplatelets
CPT/HCPCS: 36415; 70450; 71045; 74177; 80048; 80053; 81001; 82948; 83036; 83605; 83690; 83735; 83880; 84484; 85025; 87635; 87637; 90471; 90662; 92610; 93005; 93306; 93880; 96361; 96374; 97110; 97161; 97166; 97530; 99285; A9270; G0008; J1815; J1940; J2405; J2765; J7030; J7040; Q9967